=== PATIENT | male | born 1955 | race Caucasian/White ===

== ENCOUNTER → 2017-10-14 11:16 | Outpatient (CLI) | payer OTHER, SELFPAY ==
--- NOTE | 2017-10-14 11:18 | DI.RAD.S_ITS ---
PROCEDURE: XR SHOULDER RT MIN 2V INDICATIONS: shoulder pain TECHNIQUE: 3 views of the shoulder were acquired. COMPARISON: None. FINDINGS: Bones: No fractures or dislocations. No suspicious bony lesions. Visualized ribs appear intact. Soft tissues: No suspicious soft tissue calcifications. IMPRESSION: 1. No fracture or dislocation. 2. Mild degenerative a.c. joint disease. Dictated by: Chris London M.D. on 10/14/2017 at 12:24 Approved by: Chris London M.D. on 10/14/2017 at 12:25
== END ==
PROVIDERS: Family Provider Family Medicine; PCP Family Medicine; Visit Provider Family Medicine
DX: M19.011 Primary osteoarthritis, right shoulder (principal); M25.511 Pain in right shoulder
CPT/HCPCS: 73030

== ENCOUNTER → 2018-04-12 08:19 | Outpatient (CLI) | payer OTHER, SELFPAY ==
[2018-04-12 09:24] LABS: Alanine Aminotransferase 70 IU/L (21-72); Albumin 4.2 g/dL (3.5-5.0); Albumin Globulin Ratio 1.4 (1.0-2.8); Alkaline Phosphatase 76 U/L (38-126); Aspartate Aminotransferase 43 IU/L (17-59); BUN Creatinine Ratio 13.3 (6-22); Bilirubin Total 0.3 mg/dL (0.2-1.3); Blood Urea Nitrogen 12 mg/dL (9-20); Calcium 8.5 mg/dL (8.4-10.2); Carbon Dioxide 29 mmol/L (22-32); Chloride 105 mmol/L (98-107); Cholesterol 159 mg/dL (140-199); Estimated Glomerular Filt Rate > 60.0 mL/min (>60); Glucose 151 mg/dL (80-110); HDL Cholesterol 28 mg/dL (40-60); HEMOLYSIS < 15 (0-50); LDL Cholesterol Calculated 84 mg/dL (<100); Potassium 4.6 mmol/L (3.4-5.1); Sodium 144 mmol/L (137-145); Total Protein 7.2 g/dL (6.3-8.2); Triglycerides 233 mg/dL (35-150)
[2018-04-12 09:51] LABS: Thyroid Stimulating Hormone 2.28 uIU/mL (0.47-4.68)
[2018-04-12 11:26] LABS: Creatinine Urine Random 269.3 mg/dL
[2018-04-12 11:29] LABS: Microalbumi Creatinin Ratio Ur 23.3 ug/mg CR (<30); Microalbumin Urine Random 6.3 mg/dL (0-1.6)
== END ==
PROVIDERS: PCP Family Medicine; Visit Provider Nurse Practitioner
DX: E11.29 Type 2 diabetes mellitus with other diabetic kidney complication (principal); R80.9 Proteinuria, unspecified; E66.01 Morbid (severe) obesity due to excess calories; Z68.43 Body mass index [BMI] 50.0-59.9, adult
CPT/HCPCS: 80053; 80061; 82043; 82570; 84410; 84443

== ENCOUNTER → 2019-03-20 16:54 | Outpatient (CLI) | payer OTHER, SELFPAY | PROVIDERS: Family Provider Family Medicine; PCP Family Medicine; Visit Provider Nurse Practitioner | DX: J02.9 Acute pharyngitis, unspecified (principal) | CPT/HCPCS: 87070 ==

== ENCOUNTER → 2019-04-18 08:23 | Outpatient (CLI) | payer OTHER, SELFPAY ==
[2019-04-18 09:04] LABS: Add Manual Diff / Slide Review NO; Basophils Absolute Auto 0 /uL (0-100); Basophils Percent Auto 0.6 % (0-2); Eosinophils Absolute Auto 400 /uL (0-450); Eosinophils Percent Auto 5.5 % (2-4); Hematocrit 41.1 % (41-53); Hemoglobin 13.8 g/dL (13.5-17.5); Lymphocytes Absolute Auto 1700 /uL (1100-4500); Lymphocytes Percent Auto 22.5 % (25-40); Mean Corpuscular HGB Conc 33.7 % (30-36); Mean Corpuscular Hemoglobin 30.4 PG (26-34); Mean Corpuscular Volume 90.5 fL (80-100); Monocytes Absolute Auto 600 /uL (0-900); Monocytes Percent Auto 7.5 % (3-14); Neutrophils Absolute Auto 4700 /uL (1500-7000); Neutrophils Percent Auto 63.9 % (50-75); Platelet Count 217 X10^3/uL (150-400); Red Blood Cell Count 4.54 X10^6/uL (4.5-5.9); Red Cell Distribution Width 14.6 % (11.6-14.8); White Blood Cell Count 7.4 X10^3/uL (4.5-11.0)
[2019-04-18 09:16] LABS: Alanine Aminotransferase 34 IU/L (<50); Albumin 4.3 g/dL (3.5-5.0); Albumin Globulin Ratio 1.2 (1.0-2.8); Alkaline Phosphatase 98 U/L (38-126); Aspartate Aminotransferase 34 IU/L (17-59); Bilirubin Total 0.4 mg/dL (0.2-1.3); Blood Urea Nitrogen 12 mg/dL (9-20); Calcium 9.4 mg/dL (8.4-10.2); Carbon Dioxide 23 mmol/L (22-32); Chloride 105 mmol/L (98-107); Cholesterol 159 mg/dL (140-199); Estimated Glomerular Filt Rate > 60.0 mL/min (>60); Globulin 3.5 g/dL (1.7-4.1); Glucose 148 mg/dL (80-110); HDL Cholesterol 29 mg/dL (40-60); HEMOLYSIS < 15 (0-50); LDL Cholesterol Calculated 80 mg/dL (<100); Potassium 4.1 mmol/L (3.4-5.1); Sodium 140 mmol/L (137-145); Total Protein 7.8 g/dL (6.3-8.2); Triglycerides 248 mg/dL (35-150)
[2019-04-18 09:46] LABS: Prostate Specific Antigen 0.728 ng/mL (0.10-4.00)
[2019-04-18 11:09] LABS: Thyroid Stimulating Hormone 1.43 uIU/mL (0.47-4.68)
== END ==
PROVIDERS: Family Provider Family Medicine; PCP Family Medicine; Visit Provider Family Medicine
DX: Z12.5 Encounter for screening for malignant neoplasm of prostate (principal); Z13.29 Encounter for screening for other suspected endocrine disorder; E11.9 Type 2 diabetes mellitus without complications; E78.00 Pure hypercholesterolemia, unspecified; I10 Essential (primary) hypertension
CPT/HCPCS: 36415; 80053; 80061; 84153; 84443; 85025

== ENCOUNTER → 2019-12-15 13:17 | Outpatient (CLI) | payer OTHER, SELFPAY | PROVIDERS: Family Provider Family Medicine; PCP Family Medicine; Referring Provider Family Medicine; Visit Provider Family Medicine | DX: I87.2 Venous insufficiency (chronic) (peripheral) (principal); L97.821 Non-pressure chronic ulcer of other part of left lower leg limited to breakdown of skin; L03.116 Cellulitis of left lower limb | CPT/HCPCS: 11042; 87070; 87077; 87186; 87205; 99203; 99214 ==

== ENCOUNTER → 2019-12-22 14:44 | Outpatient (CLI) | payer OTHER, SELFPAY | PROVIDERS: Family Provider Family Medicine; PCP Family Medicine; Referring Provider Family Medicine; Visit Provider Family Medicine | DX: I87.2 Venous insufficiency (chronic) (peripheral) (principal); L97.811 Non-pressure chronic ulcer of other part of right lower leg limited to breakdown of skin | CPT/HCPCS: 11042; 93922 ==

== ENCOUNTER → 2019-12-24 14:31 | Outpatient (CLI) | payer OTHER, SELFPAY | PROVIDERS: Family Provider Family Medicine; PCP Family Medicine; Referring Provider Family Medicine; Visit Provider Family Medicine | DX: I87.2 Venous insufficiency (chronic) (peripheral) (principal); L97.811 Non-pressure chronic ulcer of other part of right lower leg limited to breakdown of skin | CPT/HCPCS: 29580 ==

== ENCOUNTER → 2019-12-28 14:49 | Outpatient (CLI) | payer OTHER, SELFPAY | PROVIDERS: Family Provider Family Medicine; PCP Family Medicine; Referring Provider Family Medicine; Visit Provider Family Medicine | DX: I87.2 Venous insufficiency (chronic) (peripheral) (principal); L97.821 Non-pressure chronic ulcer of other part of left lower leg limited to breakdown of skin | CPT/HCPCS: 11042 ==

== ENCOUNTER → 2020-01-02 08:49 | Outpatient (CLI) | payer OTHER, SELFPAY ==
[2020-01-02 10:29] LABS: Alanine Aminotransferase 43 IU/L (<50); Albumin 4.4 g/dL (3.5-5.0); Albumin Globulin Ratio 1.3 (1.0-2.8); Alkaline Phosphatase 95 U/L (38-126); Aspartate Aminotransferase 47 IU/L (17-59); BUN Creatinine Ratio 19.2 (6-22); Bilirubin Total 0.5 mg/dL (0.2-1.3); Blood Urea Nitrogen 20 mg/dL (9-20); Carbon Dioxide 25 mmol/L (22-32); Chloride 105 mmol/L (98-107); Estimated Glomerular Filt Rate > 60.0 mL/min (>60); Globulin 3.4 g/dL (1.7-4.1); Glucose 118 mg/dL (80-110); HEMOLYSIS 18 (0-50); Potassium 4.3 mmol/L (3.4-5.1); Sodium 139 mmol/L (137-145); Total Protein 7.8 g/dL (6.3-8.2)
== END ==
PROVIDERS: Family Provider Family Medicine; PCP Family Medicine; Referring Provider Internal Medicine; Visit Provider Internal Medicine
DX: E11.29 Type 2 diabetes mellitus with other diabetic kidney complication (principal); R80.9 Proteinuria, unspecified
CPT/HCPCS: 36415; 80053

== ENCOUNTER → 2020-01-04 14:43 | Outpatient (CLI) | payer OTHER, SELFPAY | PROVIDERS: Family Provider Family Medicine; PCP Family Medicine; Referring Provider Family Medicine; Visit Provider Family Medicine | DX: I87.2 Venous insufficiency (chronic) (peripheral) (principal); L97.821 Non-pressure chronic ulcer of other part of left lower leg limited to breakdown of skin; L08.9 Local infection of the skin and subcutaneous tissue, unspecified | CPT/HCPCS: 11042; 87070; 87075; 87077; 87147; 87186; 87205; 99214 ==

== ENCOUNTER → 2020-01-11 16:22 | Outpatient (CLI) | payer OTHER, SELFPAY | PROVIDERS: Family Provider Family Medicine; PCP Family Medicine; Referring Provider Family Medicine; Visit Provider Family Medicine | DX: I87.2 Venous insufficiency (chronic) (peripheral) (principal); L97.811 Non-pressure chronic ulcer of other part of right lower leg limited to breakdown of skin; L08.9 Local infection of the skin and subcutaneous tissue, unspecified | CPT/HCPCS: 29581; 99213 ==

== ENCOUNTER → 2020-01-18 15:48 | Outpatient (CLI) | payer OTHER, SELFPAY | PROVIDERS: Family Provider Family Medicine; PCP Family Medicine; Referring Provider Family Medicine; Visit Provider Family Medicine | DX: I87.2 Venous insufficiency (chronic) (peripheral) (principal); L97.811 Non-pressure chronic ulcer of other part of right lower leg limited to breakdown of skin | CPT/HCPCS: 15271; Q4137 ==

== ENCOUNTER → 2020-01-25 15:24 | Outpatient (CLI) | payer OTHER, SELFPAY | PROVIDERS: Family Provider Family Medicine; PCP Family Medicine; Referring Provider Family Medicine; Visit Provider Family Medicine | DX: I87.2 Venous insufficiency (chronic) (peripheral) (principal); L97.811 Non-pressure chronic ulcer of other part of right lower leg limited to breakdown of skin; R60.0 Localized edema | CPT/HCPCS: 15271; 99212; Q4137 ==

== ENCOUNTER → 2020-02-01 14:37 | Outpatient (CLI) | payer OTHER, SELFPAY | PROVIDERS: Family Provider Family Medicine; PCP Family Medicine; Referring Provider Family Medicine; Visit Provider Family Medicine | DX: I87.2 Venous insufficiency (chronic) (peripheral) (principal); L97.821 Non-pressure chronic ulcer of other part of left lower leg limited to breakdown of skin; R60.0 Localized edema | CPT/HCPCS: 15271; Q4137 ==

== ENCOUNTER → 2020-02-08 13:49 | Outpatient (CLI) | payer OTHER, SELFPAY | PROVIDERS: Family Provider Family Medicine; PCP Family Medicine; Referring Provider Family Medicine; Visit Provider Family Medicine | DX: I87.2 Venous insufficiency (chronic) (peripheral) (principal); L97.821 Non-pressure chronic ulcer of other part of left lower leg limited to breakdown of skin; R60.0 Localized edema | CPT/HCPCS: 15271; Q4137 ==

== ENCOUNTER → 2020-02-15 14:12 | Outpatient (CLI) | payer OTHER, SELFPAY | PROVIDERS: Family Provider Family Medicine; PCP Family Medicine; Referring Provider Family Medicine; Visit Provider Family Medicine | DX: I87.2 Venous insufficiency (chronic) (peripheral) (principal); L97.821 Non-pressure chronic ulcer of other part of left lower leg limited to breakdown of skin; R60.0 Localized edema | CPT/HCPCS: 15271; Q4137 ==

== ENCOUNTER → 2020-02-22 14:26 | Outpatient (CLI) | payer OTHER, SELFPAY | PROVIDERS: Family Provider Family Medicine; PCP Family Medicine; Referring Provider Family Medicine; Visit Provider Family Medicine | DX: I87.2 Venous insufficiency (chronic) (peripheral) (principal); L97.811 Non-pressure chronic ulcer of other part of right lower leg limited to breakdown of skin | CPT/HCPCS: 29581 ==

== ENCOUNTER → 2020-02-29 14:36 | Outpatient (CLI) | payer OTHER, SELFPAY | PROVIDERS: Family Provider Family Medicine; PCP Family Medicine; Referring Provider Family Medicine; Visit Provider Family Medicine | DX: I87.2 Venous insufficiency (chronic) (peripheral) (principal); L97.821 Non-pressure chronic ulcer of other part of left lower leg limited to breakdown of skin; R60.0 Localized edema | CPT/HCPCS: 15271; Q4137 ==

== ENCOUNTER → 2020-03-07 10:16 | Outpatient (CLI) | payer OTHER, SELFPAY ==
[2020-03-07 12:01] LABS: Alanine Aminotransferase 47 IU/L (<50); Albumin 3.9 g/dL (3.5-5.0); Albumin Globulin Ratio 1.3 (1.0-2.8); Alkaline Phosphatase 76 U/L (38-126); Aspartate Aminotransferase 40 IU/L (17-59); BUN Creatinine Ratio 16.3 (6-22); Bilirubin Total 0.4 mg/dL (0.2-1.3); Blood Urea Nitrogen 14 mg/dL (9-20); Carbon Dioxide 28 mmol/L (22-32); Chloride 106 mmol/L (98-107); Estimated Glomerular Filt Rate > 60.0 mL/min (>60); Globulin 3.1 g/dL (1.7-4.1); Glucose 76 mg/dL (80-110); HEMOLYSIS < 15 (0-50); Sodium 138 mmol/L (137-145)
== END ==
PROVIDERS: Family Provider Family Medicine; PCP Family Medicine; Referring Provider Internal Medicine; Visit Provider Internal Medicine
DX: E11.29 Type 2 diabetes mellitus with other diabetic kidney complication (principal); R80.9 Proteinuria, unspecified
CPT/HCPCS: 80053

== ENCOUNTER → 2020-03-07 16:19 | Outpatient (CLI) | payer OTHER, SELFPAY | PROVIDERS: Family Provider Family Medicine; PCP Family Medicine; Referring Provider Family Medicine; Visit Provider Family Medicine | DX: E11.622 Type 2 diabetes mellitus with other skin ulcer (principal); I87.2 Venous insufficiency (chronic) (peripheral); L97.811 Non-pressure chronic ulcer of other part of right lower leg limited to breakdown of skin; R60.0 Localized edema | CPT/HCPCS: 15271; Q4137 ==

== ENCOUNTER → 2020-03-14 15:07 | Outpatient (CLI) | payer OTHER, SELFPAY | PROVIDERS: Family Provider Family Medicine; PCP Family Medicine; Referring Provider Family Medicine; Visit Provider Family Medicine | DX: I87.2 Venous insufficiency (chronic) (peripheral) (principal); R60.0 Localized edema; E11.9 Type 2 diabetes mellitus without complications; L89.323 Pressure ulcer of left buttock, stage 3; L89.313 Pressure ulcer of right buttock, stage 3; R21 Rash and other nonspecific skin eruption; L08.9 Local infection of the skin and subcutaneous tissue, unspecified; G30.9 Alzheimer's disease, unspecified; F02.80 Dementia in other diseases classified elsewhere, unspecified severity, without behavioral disturbance, psychotic disturbance, mood disturbance, and anxiety | CPT/HCPCS: 99212; 99213 ==

== ENCOUNTER → 2020-03-22 11:54 | Outpatient (CLI) | payer OTHER, SELFPAY | PROVIDERS: Family Provider Family Medicine; PCP Family Medicine; Referring Provider Family Medicine; Visit Provider Family Medicine | DX: I87.2 Venous insufficiency (chronic) (peripheral) (principal); L97.811 Non-pressure chronic ulcer of other part of right lower leg limited to breakdown of skin; R60.0 Localized edema | CPT/HCPCS: 87070; 87075; 87077; 87147; 87205; 99214 ==

== ENCOUNTER → 2020-03-31 14:48 | Outpatient (CLI) | payer OTHER, SELFPAY | PROVIDERS: Family Provider Family Medicine; PCP Family Medicine; Referring Provider Family Medicine; Visit Provider Family Medicine | DX: E11.622 Type 2 diabetes mellitus with other skin ulcer (principal); R60.0 Localized edema; I87.2 Venous insufficiency (chronic) (peripheral); L97.821 Non-pressure chronic ulcer of other part of left lower leg limited to breakdown of skin | CPT/HCPCS: 99212; 99214 ==

== ENCOUNTER → 2020-04-23 10:34 | Outpatient (CLI) | payer OTHER, SELFPAY ==
[2020-04-23 12:44] LABS: Cholesterol 103 mg/dL (140-199); HDL Cholesterol 34 mg/dL (40-60); LDL Cholesterol Calculated 32 mg/dL (<100); Triglycerides 187 mg/dL (35-150)
== END ==
PROVIDERS: Family Provider Family Medicine; PCP Family Medicine; Referring Provider Internal Medicine Endocrinology, Diabetes & Metabolism; Visit Provider Internal Medicine Endocrinology, Diabetes & Metabolism
DX: E78.2 Mixed hyperlipidemia (principal)
CPT/HCPCS: 36415; 80061

== ENCOUNTER → 2020-09-02 12:28 | Outpatient (CLI) | payer OTHER, SELFPAY ==
[2020-09-02 13:38] LABS: Alanine Aminotransferase 61 IU/L (<50); Albumin 4.5 g/dL (3.5-5.0); Albumin Globulin Ratio 1.3 (1.0-2.8); Alkaline Phosphatase 84 U/L (38-126); Aspartate Aminotransferase 59 IU/L (17-59); Bilirubin Total 0.3 mg/dL (0.2-1.3); Blood Urea Nitrogen 12 mg/dL (9-20); Calcium 9.5 mg/dL (8.4-10.2); Carbon Dioxide 26 mmol/L (22-32); Chloride 104 mmol/L (98-107); Cholesterol 120 mg/dL (140-199); Estimated Glomerular Filt Rate > 60.0 mL/min (>60); Globulin 3.6 g/dL (1.7-4.1); Glucose 76 mg/dL (80-110); HDL Cholesterol 34 mg/dL (40-60); HEMOLYSIS < 15 (0-50); LDL Cholesterol Calculated 51 mg/dL (<100); Potassium 4.5 mmol/L (3.4-5.1); Sodium 140 mmol/L (137-145); Total Protein 8.1 g/dL (6.3-8.2); Triglycerides 177 mg/dL (35-150)
[2020-09-02 13:44] LABS: Hemoglobin A1C% w Est Avg Glu 6.7 % (4.0-6.0)
[2020-09-02 14:18] LABS: Creatinine Urine Random 67.3 mg/dL
[2020-09-02 14:22] LABS: Microalbumi Creatinin Ratio Ur 29.7 ug/mg CR (<30)
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
== END ==
PROVIDERS: Family Provider Family Medicine; PCP Family Medicine; Referring Provider Internal Medicine Endocrinology, Diabetes & Metabolism; Visit Provider Internal Medicine Endocrinology, Diabetes & Metabolism
DX: E11.29 Type 2 diabetes mellitus with other diabetic kidney complication (principal); R80.9 Proteinuria, unspecified
CPT/HCPCS: 36415; 80053; 80061; 82043; 82570; 83036

== ENCOUNTER → 2021-04-21 12:42 | Outpatient (CLI) | payer OTHER, SELFPAY ==
[2021-04-21 13:18] LABS: Hemoglobin A1C% w Est Avg Glu 6.7 % (4.0-6.0)
[2021-04-21 13:23] LABS: Alanine Aminotransferase 36 IU/L (<50); Albumin 4.5 g/dL (3.5-5.0); Albumin Globulin Ratio 1.5 (1.0-2.8); Alkaline Phosphatase 75 U/L (38-126); Aspartate Aminotransferase 33 IU/L (17-59); BUN Creatinine Ratio 18.4 (6-22); Bilirubin Total 0.4 mg/dL (0.2-1.3); Blood Urea Nitrogen 16 mg/dL (9-20); Calcium 9.1 mg/dL (8.4-10.2); Carbon Dioxide 29 mmol/L (22-32); Chloride 105 mmol/L (98-107); Cholesterol 109 mg/dL (140-199); Estimated Glomerular Filt Rate > 60.0 mL/min (>60); Globulin 3.1 g/dL (1.7-4.1); Glucose 104 mg/dL (80-110); HDL Cholesterol 35 mg/dL (40-60); HEMOLYSIS < 15 (0-50); LDL Cholesterol Calculated 43 mg/dL (<100); Sodium 143 mmol/L (137-145); Total Protein 7.6 g/dL (6.3-8.2); Triglycerides 155 mg/dL (35-150)
[2021-04-21 13:42] LABS: Creatinine Urine Random 106.9 mg/dL
[2021-04-21 13:45] LABS: Microalbumi Creatinin Ratio Ur 76.7 ug/mg CR (<30); Microalbumin Urine Random 8.2 mg/dL (0-1.6)
== END ==
PROVIDERS: Family Provider Family Medicine; PCP Family Medicine; Referring Provider Student in an Organized Health Care Education/Training Program; Visit Provider Student in an Organized Health Care Education/Training Program
DX: E11.69 Type 2 diabetes mellitus with other specified complication (principal)
CPT/HCPCS: 36415; 80053; 80061; 82043; 82570; 83036

== ENCOUNTER 2021-08-28 17:54 | Emergency (ER) | payer OTHER, SELFPAY ==
[2021-08-28 18:07] VITALS: BP 133/68; PULSE 84; RESP 18; TEMP 36.2; O2SAT 93; BMI 50.9
[2021-08-28 22:21] VITALS: BP 118/65; PULSE 81; O2SAT 95
--- NOTE | 2021-08-28 22:53 | ED_ITS ---
HPI - Nausea/Vomiting/Diarrhea General Chief complaint: Nausea/Vomiting/Diarrhea Stated complaint: N/V/D C-Diff Exposure Time Seen by Provider: 08/28/21 21:09 Source: patient Mode of arrival: Ambulatory History of Present Illness HPI Narrative: 65-year-old gentleman with a history of diabetes, asthma, hypertension, reflux, hyperlipidemia, anxiety and depression was recently exposed to a young family member who was later diagnosed with Clostridium difficile. The patient himself has noted intermittent nonpainful nonbloody diarrhea over the last 3 days. He has had a formed bowel movement today and is not feeling ill. No not a or vom iting. No cough, chills, palpitations, chest pain, headaches. Related Data Home Medications Medication Instructions Recorded Confirmed psyllium husk (aspartame) 3.4 gram 1 pkt PO QDAY #0 07/23/12 04/21/19 oral powder packet (Metamucil Fiber Singles) semaglutide 1 mg/dose (2 mg/1.5 1 mg SUBCUT QWEEK 04/21/19 04/21/19 mL) subcutaneous pen injector (Ozempic) antiarthritic combination no.2 900 mg PO 11/08/20 11/08/20 mg tablet (glucosamine-chondroitin) doxylamine succinate 25 mg tablet 25 mg PO BEDTIME PRN 11/08/20 11/08/20 empagliflozin 25 mg tablet 25 mg PO DAILY 11/08/20 11/08/20 (Jardiance) fexofenadine-pseudoephedrine ER 1 tab PO QAM 11/08/20 11/08/20 180 mg-240 mg tablet,ext.release 24 hr fluticasone propionate 50 1 spray INTRANASAL BID 11/08/20 11/08/20 mcg/actuation nasal spray,suspension (Flonase Allergy Relief) ibuprofen 800 mg tablet 800 mg PO .HS tab 11/08/20 11/08/20 rosuvastatin 5 mg tablet (Crestor) 5 mg PO DAILY 11/08/20 11/08/20 Previous Rx's Medication Instructions Recorded Glucose: Home Monitor units SEE INSTRUCTIONS #1 09/19/16 metformin 1,000 mg tablet 1,000 mg PO BIDCC #180 tab 12/10/19 (Glucophage) sertraline 50 mg tablet 50 mg PO QDAY #90 tab 10/25/20 blood sugar diagnostic (OneTouch See Rx Instructions .ROUTE 01/17/21 Ultra Test) .COMPLEX #700 ea lisinopril 40 mg tablet (Zestril) 40 mg PO QDAY #90 tab 05/18/21 omeprazole 20 mg capsule,delayed 20 mg PO BID #180 cap 05/18/21 release pramipexole 3.75 mg 3.75 mg PO DAILY #90 tab 05/18/21 tablet,extended release 24 hr tamsulosin 0.4 mg capsule See Rx Instructions .ROUTE 05/18/21 .COMPLEX #180 cap loratadine-pseudoephedrine ER 10 1 tab PO QDAY #90 tab 07/24/21 mg-240 mg tablet,extended [id number] (Claritin-D 24 Hour) Allergies Allergy/AdvReac Type Severity Reaction Status Date / Time No Known Drug Allergies Allergy Verified 11/08/20 10:43 Review of Systems Review of Systems Narrative: Remainder of complete review of systems is otherwise unremarkable except for that included in the HPI. Patient History Medical History Actinic keratosis due to exposure to sunlight (01/31/15) Diabetes mellitus Hyperlipidemia Hypertension Kidney stones Kidney stones Sleep apnea Surgical History History of sinus surgery Status post hemorrhoidectomy Family History Father Heart disease Hypertension Lumbar degenerative disc disease Social History marital status: Smoking Status: Never smoker alcohol intake: current (ON OCCASION ) substance use type: does not use Smoking Status: Never smoker alcohol intake frequency: holidays/special occasions only Substance Use Type: does not use Exam Initial Vital Signs Initial Vital Signs: Vital Signs Temperature 97.1 F L 08/28/21 18:07 Pulse Rate 84 08/28/21 18:07 Respiratory Rate 18 08/28/21 18:07 Blood Pressure 133/68 08/28/21 18:07 Pulse Oximetry 93 08/28/21 18:07 General: Healthy appearing, in no acute distress. Able to give a complete and coherent history. Well-nourished well-developed HEENT: Moist mucous membranes, normal sclera with reactive pupils, Neck: No JVD, supple Respiratory: Lungs are clear to auscultation, no wheezing no rales no rhonchi. Full and symmetrical air movement Cardiac: Regular rate and rhythm no murmurs no bruits Abdomen: Soft, nontender, good bowel tones, no flank pain Skin: Warm and dry, no rashes Neurologic: Grossly neurologically intact with no obvious asymmetries or abnormalities Extremities: No trauma, well perfused Psych: Cooperative, appropriate insight and affect Course Vital Signs Vital signs: Vital Signs - 8 hr 08/28/ 23:04 Pulse Rate 78 Blood Pressure 124/63 Pulse Oximetry 98 MDM - Nausea/Vomiting/Diarrhea MDM Narrative Medical decision making narrative: Patient presents concerned that he may have Clostridium difficile after moderate recent family exposure and intermittent diarrhea for the last 3 days. He produces a formed stool today which was sent to the lab but declined to be tested as it was fully formed. His granddaughter who was also the same event is also having diarrhea is seen simultaneously and her stool shows sapovirus. Suspect that is what also has rather than Clostridium difficile particularly given the fairly rapid resolution of symptoms. Discussed conservative management for his diarrhea. At this point he is clinically stable with no evidence of Clostridium difficile colitis or other acute abnormalities. Questions are answered he is safe for discharge Discharge Plan Departure Patient Disposition: Home Clinical Impression: Viral diarrhea Instructions: DI for Viral Gastroenteritis -- Adult Activity Restrictions/Additional Instructions: Thank you for coming in today Fortunately, you do not have C diff. with your granddaughter testing positive for sapovirus, I suspect this is also your diagnosis. This is a relatively benign viral infection that does cause diarrhea. There is nothing that we need to do specifically. You will get better by yourself. I would recommend that you drink plenty of fluids particularly things like Gatorade that have extra potassium in them. Eating simple foods such as bananas, rice, applesauce, toast for the next day or 2 certainly will help. I would also recommend avoiding dairy products for the next day or 2. Do keep track of your blood sugars and if you are noticing that your numbers are increasing please adjust your carbohydrate intake accordingly. If you find that you are getting worse or develop any new symptoms, please feel free to return to the emergency department for further evaluation. I hope you feel better Prescriptions: No Action Ozempic 1 mg/dose (2 mg/1.5 mL) pen injector 1 mg SUBCUT QWEEK 0RF fexofenadine-pseudoephedrine 180-240 mg tablet extended release 24 hr 1 tab PO QAM 0RF fluticasone propionate [Flonase Allergy Relief] 50 mcg/actuation spray,suspension 1 spray intranasal BID 0RF Rx Instructions: administer into each nostril glucosamine-chondroitin 900 mg tablet PO 0RF ibuprofen 800 mg tablet 800 mg PO .HS 0RF doxylamine succinate 25 mg tablet 25 mg PO BEDTIME PRN0RF Jardiance 25 mg tablet 25 mg PO DAILY 0RF rosuvastatin [Crestor] 5 mg tablet 5 mg PO DAILY 0RF psyllium husk (aspartame) [Metamucil Fiber Singles] 3.4 GM powder in packet 1 pkt PO QDAY Qty: 0 0RF Glucose: Home Monitor SEE INSTRUCTIONS Qty: 1 PRNRF metformin [Glucophage] 1,000 mg tablet 1,000 mg PO BIDCC Qty: 180 3RF sertraline 50 mg tablet 50 mg PO QDAY Qty: 90 3RF OneTouch Ultra Test Strip See Rx Instructions .ROUTE .COMPLEX Qty: 700 2RF Dose Instruction: Use to check blood sugar up to 8 time(s) daily before and after each meal and at bedtime Rx Instructions: Use to check blood sugar up to 8 time(s) daily before and after each meal and at bedtime tamsulosin 0.4 mg capsule See Rx Instructions .ROUTE .COMPLEX Qty: 180 3RF Dose Instruction: Take 2 capsules by mouth every day Rx Instructions: Take 2 capsules by mouth every day omeprazole 20 mg capsule,delayed release(DR/EC) 20 mg PO BID Qty: 180 3RF lisinopril [Zestril] 40 mg tablet 40 mg PO QDAY Qty: 90 3RF pramipexole 3.75 mg tablet extended release 24 hr 3.75 mg PO DAILY Qty: 90 3RF Hold Instructions: currently not available loratadine-pseudoephedrine [Claritin-D 24 Hour] 10-240 mg tablet extended release 24 hr 1 tab PO QDAY Qty: 90 4RF Referrals: Efrain Duggan MD [Primary Care Provider] -
[2021-08-28 23:04] VITALS: BP 124/63; PULSE 78; O2SAT 98
== END 2021-08-28 23:05 | disposition home or self-care (01) ==
PROVIDERS: Emergency Provider Emergency Medicine; Family Provider Family Medicine; PCP Family Medicine
DX: R19.7 Diarrhea, unspecified (principal)
CPT/HCPCS: 99281

== ENCOUNTER 2021-10-06 16:00 | Emergency (ER) | payer OTHER, SELFPAY ==
[2021-10-06] VITALS (16 sets, daily range): BP systolic 99–125; BP diastolic 53–60; PULSE 81–96; RESP 18–23; TEMP 36.2; O2SAT 92–95; BMI 51.6
--- NOTE | 2021-10-06 16:11 | DI.RAD.S_ITS ---
PROCEDURE: XR CHEST 1V INDICATIONS: shortness of breath-covid poss TECHNIQUE: One view of the chest was acquired. COMPARISON: [facility], , CHEST 1 VIEW, 12/04/2006, 20:47. FINDINGS: Surgical changes and devices: None. Lungs and pleura: Lungs are clear. No pleural effusions or pneumothorax. Mediastinum: Mediastinal contours appear normal. Heart size is normal. Bones and chest wall: No suspicious bony lesions. Overlying soft tissues appear unremarkable. IMPRESSION: No consolidations. Dictated by: Gail Herrera M.D. on 10/06/2021 at 17:01 Approved by: Gail Herrera M.D. on 10/06/2021 at 17:02
[2021-10-06 16:58] LABS: Add Manual Diff / Slide Review NO; Basophils Absolute Auto 100 /uL (0-100); Basophils Percent Auto 0.6 % (0-2); Eosinophils Absolute Auto 200 /uL (0-450); Eosinophils Percent Auto 2.4 % (2-4); Hematocrit 40.1 % (41-53); Hemoglobin 13.4 g/dL (13.5-17.5); Lymphocytes Absolute Auto 2000 /uL (1100-4500); Lymphocytes Percent Auto 20.6 % (25-40); Mean Corpuscular HGB Conc 33.5 % (30-36); Mean Corpuscular Hemoglobin 30.9 PG (26-34); Mean Corpuscular Volume 92.1 fL (80-100); Monocytes Absolute Auto 600 /uL (0-900); Monocytes Percent Auto 6.1 % (3-14); Neutrophils Absolute Auto 6700 /uL (1500-7000); Neutrophils Percent Auto 70.3 % (50-75); Platelet Count 223 X10^3/uL (150-400); Red Blood Cell Count 4.35 X10^6/uL (4.5-5.9); Red Cell Distribution Width 14.4 % (11.6-14.8); White Blood Cell Count 9.5 X10^3/uL (4.5-11.0)
[2021-10-06 17:10] LABS: Alanine Aminotransferase 54 IU/L (<50); Albumin 4.2 g/dL (3.5-5.0); Albumin Globulin Ratio 1.4 (1.0-2.8); Alkaline Phosphatase 90 U/L (38-126); Aspartate Aminotransferase 52 IU/L (17-59); BUN Creatinine Ratio 18.2 (6-22); Bilirubin Total 0.4 mg/dL (0.2-1.3); Blood Urea Nitrogen 16 mg/dL (9-20); Calcium 8.7 mg/dL (8.4-10.2); Carbon Dioxide 20 mmol/L (22-32); Chloride 105 mmol/L (98-107); Estimated Glomerular Filt Rate > 60 mL/min (>60); Globulin 3.1 g/dL (1.7-4.1); Glucose 208 mg/dL (80-110); HEMOLYSIS < 15 (0-50); Potassium 4.3 mmol/L (3.4-5.1); Sodium 138 mmol/L (137-145); Total Protein 7.3 g/dL (6.3-8.2)
[2021-10-06 17:11] LABS: Lactate (Lactic Acid) 2.1 mmol/L (0.7-2.1)
--- NOTE | 2021-10-06 18:32 | ED.GENADULT ---
HPI - General Adult General Chief complaint: Shortness of Breath/Dyspnea Stated complaint: COVID + SYMTOMS Time Seen by Provider: 10/06/21 18:25 Source: patient Mode of arrival: Wheelchair History of Present Illness HPI narrative: 66-year-old gentleman with history of diabetes, hypertension, depression, gastric reflux, BPH, sleep apnea with CPAP fully immunized against COVID with positive mild COVID symptoms 2 weeks ago with seeming improvement until 2-3 days ago when he noticed dramatically increasing fatigue, exertional dyspnea, orthopnea, global weakness dizziness and upper chest pressure. He has not had increased lower extremity edema. Cough is resolved he has had no fevers no headaches, no abdominal pain. He does note that he has been having at least daily diarrhea since his COVID diagnosis but it is mild. Related Data Home Medications Medication Instructions Recorded Confirmed psyllium husk (aspartame) 3.4 gram 1 pkt PO QDAY ##0 07/23/12 04/21/19 oral powder packet (Metamucil Fiber Singles) semaglutide 1 mg/dose (2 mg/1.5 1 mg SUBCUT QWEEK 04/21/19 04/21/19 mL) subcutaneous pen injector (Ozempic) antiarthritic combination no.2 900 mg PO 11/08/20 11/08/20 mg tablet (glucosamine-chondroitin) doxylamine succinate 25 mg tablet 25 mg PO BEDTIME PRN 11/08/20 11/08/20 empagliflozin 25 mg tablet 25 mg PO DAILY 11/08/20 11/08/20 (Jardiance) fexofenadine-pseudoephedrine ER 1 tab PO QAM 11/08/20 11/08/20 180 mg-240 mg tablet,ext.release 24 hr fluticasone propionate 50 1 spray intranasal BID 11/08/20 11/08/20 mcg/actuation nasal spray,suspension (Flonase Allergy Relief) ibuprofen 800 mg tablet 800 mg PO .HS 11/08/20 11/08/20 rosuvastatin 5 mg tablet (Crestor) 5 mg PO DAILY 11/08/20 11/08/20 Previous Rx's Medication Instructions Recorded Glucose: Home Monitor units SEE INSTRUCTIONS ##1 09/19/16 blood sugar diagnostic (OneTouch See Rx Instructions .Route 01/17/21 Ultra Test strips) .COMPLEX #700 ea lisinopril 40 mg tablet (Zestril) 40 mg PO QDAY #90 tabs 05/18/21 omeprazole 20 mg capsule,delayed 20 mg PO BID #180 caps 05/18/21 release pramipexole 3.75 mg 3.75 mg PO DAILY #90 tabs 05/18/21 tablet,extended release 24 hr tamsulosin 0.4 mg capsule See Rx Instructions .Route 05/18/21 .COMPLEX #180 caps loratadine-pseudoephedrine ER 10 1 tab PO QDAY #90 tabs 07/24/21 mg-240 mg tablet,extended [id number] (Claritin-D 24 Hour) sertraline 50 mg tablet See Rx Instructions .Route 09/28/21 .COMPLEX #90 tabs metformin 1,000 mg tablet 1,000 mg PO BIDCC #180 tabs 09/29/21 ropinirole 0.25 mg tablet 0.25 mg PO BID PRN restless legs 10/03/21 #60 tabs Allergies Allergy/AdvReac Type Severity Reaction Status Date / Time No Known Drug Allergies Allergy Verified 10/06/21 16:11 Review of Systems Review of Systems Narrative: Remainder of complete review of systems is otherwise unremarkable except for that included in the HPI. Patient History Medical History Actinic keratosis due to exposure to sunlight (01/31/15) Diabetes mellitus Hyperlipidemia Hypertension Kidney stones Kidney stones Sleep apnea Surgical History History of sinus surgery Status post hemorrhoidectomy Family History Father Heart disease Hypertension Lumbar degenerative disc disease Social History marital status: Smoking Status: Never smoker alcohol intake: current (ON OCCASION ) substance use type: does not use Smoking Status: Never smoker alcohol intake frequency: holidays/special occasions only Substance Use Type: does not use Exam Initial Vital Signs Initial Vital Signs: Vital Signs Temperature 97.2 F L 10/06/21 16:06 Pulse Rate 96 H 10/06/21 16:06 Respiratory Rate 10/06/21 16:06 Blood Pressure 118/56 L 10/06/21 16:06 Pulse Oximetry 93 10/06/21 16:06 Oxygen Delivery Method 10/06/21 16:06 General: Healthy appearing, in no acute distress. Able to give a complete and coherent history. Well-nourished well-developed HEENT: Moist mucous membranes, normal sclera with reactive pupils, Neck: No JVD, supple Respiratory: Lungs are clear to auscultation, no wheezing no rales no rhonchi. Full and symmetrical air movement Cardiac: Regular rate and rhythm no murmurs no bruits Abdomen: Soft, nontender, good bowel tones, no flank pain Skin: Warm and dry, no rashes Neurologic: Grossly neurologically intact with no obvious asymmetries or abnormalities Extremities: No trauma, well perfused Psych: Cooperative, appropriate insight and affect With ambulating at the bedside oxygen levels actually increased to 96% on room air but he does become increasingly more tachycardic with sinus rhythm into the 115 range Course Orders Ordered: ED Orders 10/06/21 16:11 XR chest 1V Stat EKG-12 Lead Stat Measure peak expiratory flow ONCE RT Consult Eval and Treat Now 10/06/21 16:45 Complete Blood Count AUTO DIFF Stat Comprehensive Metabolic Panel Stat Lactate (Lactic Acid) Stat 10/06/21 18:47 CT angio chest PE protocol Stat 10/06/21 20:30 BNP [NT-proBNP (BNP-Adult 18+)] Stat Troponin & CK Cardiac Panel Stat Vital Signs Vital signs: Vital Signs - 8 hr 10/06/21 16:06 10/06/21 18:00 10/06/21 17:30 Temperature 97.2 F L Pulse Rate 96 H 83 90 Respiratory Rate 22 19 20 Blood Pressure 118/56 L 108/55 L 99/55 L Pulse Oximetry 93 94 92 Oxygen Delivery Method Room Air Room Air Room Air 10/06/21 17:00 Temperature Pulse Rate 85 Respiratory Rate 20 Blood Pressure 114/56 L Pulse Oximetry 94 Oxygen Delivery Method Room Air Medical Decision Making Lab Data Result diagrams: 10/06/21 16:45 10/06/21 16:45 Labs: Lab Results 10/06/21 10/06/21 10/06/21 Range/Units 16:45 16:45 16:45 WBC 9.5 (4.5-11.0) X10^3/uL RBC 4.35 L (4.5-5.9) X10^6/uL Hgb 13.4 L (13.5-17.5) g/dL Hct 40.1 L (41-53) % MCV 92.1 (80-100) fL MCH 30.9 (26-34) PG MCHC 33.5 (30-36) % RDW 14.4 (11.6-14.8) % Plt Count 223 (150-400) X10^3/uL Neut % (Auto) 70.3 (50-75) % Lymph % (Auto) 20.6 L (25-40) % [place] % (Auto) 6.1 (3-14) % Eos % (Auto) 2.4 (2-4) % Baso % (Auto) 0.6 (0-2) % Neut # (Auto) 6700 (4462-7310) /uL Lymph # (Auto) 2000 (4840-7611) /uL [place] # (Auto) 600 (0-900) /uL Eos # (Auto) 200 (0-450) /uL Baso # (Auto) 100 (0-100) /uL Sodium 138 (137-145) mmol/L Potassium 4.3 (3.4-5.1) mmol/L Chloride 105 (98-107) mmol/L Carbon Dioxide 20 L (22-32) mmol/L BUN 16 (9-20) mg/dL Creatinine 0.88 (0.66-1.25) mg/dL Estimated GFR > 60 (>60) mL/min BUN/Creatinine Ratio 18.2 (6-22) Glucose 208 H (80-110) mg/dL Lactate 2.1 (0.7-2.1) mmol/L Calcium 8.7 (8.4-10.2) mg/dL Total Bilirubin 0.4 (0.2-1.3) mg/dL AST 52 (17-59) IU/L ALT 54 H (<50) IU/L Alkaline Phosphatase 90 (38-126) U/L Total Creatine Kinase (55-170) U/L CK-MB (CK-2) (<2.37) ng/mL CK-MB (CK-2) Rel Index (1.5-5.0) % Troponin I (0.01-0.034) ng/mL NT-Pro-B Natriuret Pep (<125) pg/mL Total Protein 7.3 (6.3-8.2) g/dL Albumin 4.2 (3.5-5.0) g/dL Globulin 3.1 (1.7-4.1) g/dL Albumin/Globulin Ratio 1.4 (1.0-2.8) 10/06/21 10/06/21 10/06/21 Range/Units 20:30 20:30 20:30 WBC (4.5-11.0) X10^3/uL RBC (4.5-5.9) X10^6/uL Hgb (13.5-17.5) g/dL Hct (41-53) % MCV (80-100) fL MCH (26-34) PG MCHC (30-36) % RDW (11.6-14.8) % Plt Count (150-400) X10^3/uL Neut % (Auto) (50-75) % Lymph % (Auto) (25-40) % [place] % (Auto) (3-14) % Eos % (Auto) (2-4) % Baso % (Auto) (0-2) % Neut # (Auto) (1829-4606) /uL Lymph # (Auto) (7592-5485) /uL [place] # (Auto) (0-900) /uL Eos # (Auto) (0-450) /uL Baso # (Auto) (0-100) /uL Sodium (137-145) mmol/L Potassium (3.4-5.1) mmol/L Chloride (98-107) mmol/L Carbon Dioxide (22-32) mmol/L BUN (9-20) mg/dL Creatinine (0.66-1.25) mg/dL Estimated GFR (>60) mL/min BUN/Creatinine Ratio (6-22) Glucose (80-110) mg/dL Lactate 1.6 (0.7-2.1) mmol/L Calcium (8.4-10.2) mg/dL Total Bilirubin (0.2-1.3) mg/dL AST (17-59) IU/L ALT (<50) IU/L Alkaline Phosphatase (38-126) U/L Total Creatine Kinase 122 (55-170) U/L CK-MB (CK-2) 2.25 (<2.37) ng/mL CK-MB (CK-2) Rel Index 1.8 (1.5-5.0) % Troponin I 0.020 (0.01-0.034) ng/mL NT-Pro-B Natriuret Pep 18 (<125) pg/mL Total Protein (6.3-8.2) g/dL Albumin (3.5-5.0) g/dL Globulin (1.7-4.1) g/dL Albumin/Globulin Ratio (1.0-2.8) Imaging Data CT scan - chest: Radiologist's Impression: FINDINGS:? Image quality:? Excellent.? ? Pulmonary arteries:? There is suboptimal contrast opacification of the pulmonary arteries limiting evaluation of segmental and subsegmental branches.? Pulmonary arteries are normal in size, and demonstrate no intraluminal filling defects to suggest central pulmonary embolism.? ? Lower Neck: No lymphadenopathy by size criteria. Thyroid:? Visualized thyroid demonstrates no discrete nodules. Axillae: No lymphadenopathy by size criteria. Chest Wall:? Unremarkable.? Bones: Visualized osseous structures demonstrate no suspicious lesions. ? Lungs and Airways:? No acute consolidation.? There is mild dependent atelectasis bilaterally.? Mild scarring and atelectasis are also present within the left lingula.? No suspicious pulmonary nodules. The trachea and central airways are patent. Pleura: No pneumothorax or pleural effusions.? ? Heart: Heart size is normal.? No pericardial effusion. Thoracic Vessels: The aorta appears normal in size.? Mediastinum and Ida: No lymphadenopathy by size criteria. Esophagus: No wall thickening. No hiatal hernia. Abdomen:? Visualized upper abdominal solid organs appear normal in the early arterial phase of enhancement.? ? IMPRESSION:? ? 1. No evidence of central pulmonary embolism.? Evaluation of segmental and subsegmental branches is limited by suboptimal contrast opacification. ? 2. No acute airspace consolidation in the lungs to suggest pneumonia. ? ? Dictated by: Everett Chang M.D. on 10/06/2021 at 20:05 ? ? Chest x-ray: Radiologist's Impression: FINDINGS:? ? Surgical changes and devices:? None.? ? Lungs and pleura:? Lungs are clear.? No pleural effusions or pneumothorax.? ? Mediastinum:? Mediastinal contours appear normal.? Heart size is normal.? ? Bones and chest wall:? No suspicious bony lesions.? Overlying soft tissues appear unremarkable.? ? IMPRESSION:? No consolidations. ? ? Dictated by: Gail Herrera M.D. on 10/06/2021 at 17:01 ? ? ECG Data Interpretation: Sinus rhythm at a rate of 92 Right bundle branch block No acute ischemic changes MDM Narrative Medical decision making narrative: 66-year-old gentleman with history of diabetes 2 weeks now past initial COVID symptoms with increasing fatigue, orthopnea dyspnea. There is no evidence of acute coronary syndrome myocarditis, pericarditis, pneumothorax, bacterial superinfection, pulmonary embolism, aortic aneurysm, acute renal failure acute liver failure or significant signs of heart failure or volume overload. He is not significantly anemic. At this time, he is not hypoxic and does not meet criteria for any additional treatment for his Covid19 infection now at least 2 weeks from initial symptoms. All life-threatening etiology has been fully evaluated and at this point I do not think he needs to be admitted to the hospital. We did talk about long COVID symptoms and will ask him to do a bit of his own research regarding this. Definitely will need follow-up with his primary care provider and may benefit from echocardiogram in the near future. Discharge Plan Departure Patient Disposition: Home Clinical Impression: COVID-19, Exertional dyspnea, Fatigue Instructions: DI for Shortness of Breath Activity Restrictions/Additional Instructions: Thank you for coming in today Your workup was very reassuring. There is no sign of continued lung injury or damage from your recent COVID-19 infection. There also does not appear to be any obvious complications from your COVID-19 infection. This includes no evidence of heart attack or heart attack like syndrome, congestive heart failure, collapsed lung, bacterial super infection, blood clots in your lungs, heart infection or fluid collecting render heart, acute anemia, liver failure or kidney failure. Please do look into ?long COVID? symptoms. There is simply is not enough evidence or research for me to make any recommendations regarding that at this time. I would recommend that you follow-up with your primary care doctor. You continue to have this shortness of breath then an echocardiogram, and ultrasound picture of your heart, may be indicated. Please note, when you are feeling short of breath your oxygen level is in the 96% range which is very normal. You do not need any supplementary oxygen at this time. I hope you feel better Prescriptions: No Action Ozempic 1 mg/dose (2 mg/1.5 mL) pen injector 1 mg SUBCUT QWEEK fexofenadine-pseudoephedrine 180-240 mg tablet extended release 24 hr 1 tab PO QAM fluticasone propionate [Flonase Allergy Relief] 50 mcg/actuation spray,suspension 1 spray intranasal BID Rx Instructions: administer into each nostril glucosamine-chondroitin 900 mg tablet PO ibuprofen 800 mg tablet 800 mg PO .HS doxylamine succinate 25 mg tablet 25 mg PO BEDTIME PRN Jardiance 25 mg tablet 25 mg PO DAILY rosuvastatin [Crestor] 5 mg tablet 5 mg PO DAILY psyllium husk (aspartame) [Metamucil Fiber Singles] 3.4 GM powder in packet 1 pkt PO QDAY Qty: 0 Glucose: Home Monitor SEE INSTRUCTIONS Qty: 1 PRNRF OneTouch Ultra Test Strip See Rx Instructions .ROUTE .COMPLEX Qty: 700 2RF Dose Instruction: Use to check blood sugar up to 8 time(s) daily before and after each meal and at bedtime Rx Instructions: Use to check blood sugar up to 8 time(s) daily before and after each meal and at bedtime tamsulosin 0.4 mg capsule See Rx Instructions .ROUTE .COMPLEX Qty: 180 3RF Dose Instruction: Take 2 capsules by mouth every day Rx Instructions: Take 2 capsules by mouth every day omeprazole 20 mg capsule,delayed release(DR/EC) 20 mg PO BID Qty: 180 3RF lisinopril [Zestril] 40 mg tablet 40 mg PO QDAY Qty: 90 3RF pramipexole 3.75 mg tablet extended release 24 hr 3.75 mg PO DAILY Qty: 90 3RF Hold Instructions: temporarily unavailable. requip substituted loratadine-pseudoephedrine [Claritin-D 24 Hour] 10-240 mg tablet extended release 24 hr 1 tab PO QDAY Qty: 90 4RF sertraline 50 mg tablet See Rx Instructions .ROUTE .COMPLEX Qty: 90 3RF Dose Instruction: Take 1 tablet by mouth every day Rx Instructions: Take 1 tablet by mouth every day metformin 1,000 mg tablet 1,000 mg PO BIDCC Qty: 180 0RF ropinirole 0.25 mg tablet 0.25 mg PO BID PRN (Reason: restless legs) Qty: 60 3RF Referrals: Efrain Duggan MD [Primary Care Provider] -
--- NOTE | 2021-10-06 18:47 | DI.CT.S_ITS ---
PROCEDURE: CT ANGIO CHEST PE PROTOCOL INDICATIONS: covid, worsening dyspnea, tachy TECHNIQUE: After the administration of intravenous contrast, 2 mm thick sections acquired from the pulmonary apices to the posterior costophrenic angles. 3-dimensional maximum intensity projection (MIP) coronal and sagittal reformats were then acquired through the thorax. For radiation dose reduction, the following was used: automated exposure control, adjustment of mA and/or kV according to patient size. COMPARISON: [facility], CR, XR CHEST 1V, 10/06/2021, 16:33. FINDINGS: Image quality: Excellent. Pulmonary arteries: There is suboptimal contrast opacification of the pulmonary arteries limiting evaluation of segmental and subsegmental branches. Pulmonary arteries are normal in size, and demonstrate no intraluminal filling defects to suggest central pulmonary embolism. Lower Neck: No lymphadenopathy by size criteria. Thyroid: Visualized thyroid demonstrates no discrete nodules. Axillae: No lymphadenopathy by size criteria. Chest Wall: Unremarkable. Bones: Visualized osseous structures demonstrate no suspicious lesions. Lungs and Airways: No acute consolidation. There is mild dependent atelectasis bilaterally. Mild scarring and atelectasis are also present within the left lingula. No suspicious pulmonary nodules. The trachea and central airways are patent. Pleura: No pneumothorax or pleural effusions. Heart: Heart size is normal. No pericardial effusion. Thoracic Vessels: The aorta appears normal in size. Mediastinum and Ida: No lymphadenopathy by size criteria. Esophagus: No wall thickening. No hiatal hernia. Abdomen: Visualized upper abdominal solid organs appear normal in the early arterial phase of enhancement. IMPRESSION: 1. No evidence of central pulmonary embolism. Evaluation of segmental and subsegmental branches is limited by suboptimal contrast opacification. 2. No acute airspace consolidation in the lungs to suggest pneumonia. Dictated by: Everett Chang M.D. on 10/06/2021 at 20:05 Approved by: Everett Chang M.D. on 10/06/2021 at 20:10
[2021-10-06 18:53] LABS: Reflexed Lactate in 2 Hours Y
[2021-10-06 20:54] LABS: Creatine Kinase 122 U/L (55-170)
[2021-10-06 20:56] LABS: Lactate 2HR (Lactic Acid Rflx) 1.6 mmol/L (0.7-2.1)
[2021-10-06 21:04] LABS: NT-proBNP (BNP-Adult 18+) 18 pg/mL (<125)
[2021-10-06 21:09] LABS: CKMB % Relative Index 1.8 % (1.5-5.0); Creatine Kinase MB 2.25 ng/mL (<2.37)
== END 2021-10-06 23:04 | disposition home or self-care (01) ==
PROVIDERS: Emergency Medicine; Emergency Provider Emergency Medicine; Family Provider Family Medicine; PCP Family Medicine
DX: U07.1 COVID-19 (principal); R06.00 Dyspnea, unspecified; R53.83 Other fatigue
CPT/HCPCS: 36415; 71045; 71275; 80053; 82550; 82553; 83605; 83880; 84484; 85025; 93005; 93010; 99284; Q9967

== ENCOUNTER → 2021-10-16 11:59 | Outpatient (CLI) | payer OTHER, SELFPAY ==
[2021-10-16 14:14] LABS: Hemoglobin A1C% w Est Avg Glu 7.4 % (4.0-6.0)
[2021-10-16 14:57] LABS: Creatinine Urine Random 120.6 mg/dL; Protein (Total) Urine Random 8 mg/dL (0-12); Protein Creatinine Ratio Urine 0.06 GRAM/24H
[2021-10-16 15:04] LABS: Alanine Aminotransferase 63 IU/L (<50); Albumin 4.3 g/dL (3.5-5.0); Albumin Globulin Ratio 1.4 (1.0-2.8); Alkaline Phosphatase 76 U/L (38-126); Aspartate Aminotransferase 55 IU/L (17-59); BUN Creatinine Ratio 16.1 (6-22); Bilirubin Total 0.4 mg/dL (0.2-1.3); Blood Urea Nitrogen 15 mg/dL (9-20); Carbon Dioxide 27 mmol/L (22-32); Chloride 102 mmol/L (98-107); Cholesterol 110 mg/dL (140-199); Estimated Glomerular Filt Rate > 60 mL/min (>60); Globulin 3.1 g/dL (1.7-4.1); Glucose 97 mg/dL (80-110); HDL Cholesterol 32 mg/dL (40-60); HEMOLYSIS < 15 (0-50); LDL Cholesterol Calculated 44 mg/dL (<100); Potassium 4.6 mmol/L (3.4-5.1); Sodium 137 mmol/L (137-145); Total Protein 7.4 g/dL (6.3-8.2); Triglycerides 169 mg/dL (35-150)
== END ==
PROVIDERS: Family Provider Family Medicine; PCP Family Medicine; Referring Provider Student in an Organized Health Care Education/Training Program; Visit Provider Student in an Organized Health Care Education/Training Program
DX: E11.69 Type 2 diabetes mellitus with other specified complication (principal)
CPT/HCPCS: 36415; 80053; 80061; 82570; 83036; 84156

== ENCOUNTER → 2021-11-09 17:01 | Outpatient (CLI) | payer OTHER, SELFPAY ==
[2021-11-09 18:03] LABS: Add Manual Diff / Slide Review NO; Basophils Absolute Auto 0 /uL (0-100); Basophils Percent Auto 0.6 % (0-2); Eosinophils Absolute Auto 200 /uL (0-450); Eosinophils Percent Auto 2.8 % (2-4); Hematocrit 40.3 % (41-53); Hemoglobin 13.6 g/dL (13.5-17.5); Lymphocytes Absolute Auto 2500 /uL (1100-4500); Lymphocytes Percent Auto 31.3 % (25-40); Mean Corpuscular HGB Conc 33.8 % (30-36); Mean Corpuscular Hemoglobin 31.2 PG (26-34); Mean Corpuscular Volume 92.3 fL (80-100); Monocytes Absolute Auto 600 /uL (0-900); Monocytes Percent Auto 6.9 % (3-14); Neutrophils Absolute Auto 4700 /uL (1500-7000); Neutrophils Percent Auto 58.4 % (50-75); Platelet Count 220 X10^3/uL (150-400); Red Blood Cell Count 4.37 X10^6/uL (4.5-5.9); Red Cell Distribution Width 14.4 % (11.6-14.8); White Blood Cell Count 8.1 X10^3/uL (4.5-11.0)
== END ==
PROVIDERS: Family Provider Family Medicine; PCP Family Medicine; Referring Provider Family Medicine; Visit Provider Family Medicine
DX: R58 Hemorrhage, not elsewhere classified (principal)
CPT/HCPCS: 36415; 85025

== ENCOUNTER → 2021-12-09 10:24 | Outpatient (CLI) | payer OTHER, SELFPAY ==
[2021-12-16 19:14] LABS: Cortisol, Saliva 1 sample 0.098 ug/dL (.)
== END ==
PROVIDERS: Family Provider Family Medicine; PCP Family Medicine; Referring Provider Student in an Organized Health Care Education/Training Program; Visit Provider Student in an Organized Health Care Education/Training Program
DX: E11.65 Type 2 diabetes mellitus with hyperglycemia (principal)
CPT/HCPCS: 82533

== ENCOUNTER → 2022-01-30 12:24 | Outpatient (CLI) | payer OTHER, SELFPAY ==
[2022-01-30 13:02] LABS: Hemoglobin A1C% w Est Avg Glu 6.7 % (4.0-6.0)
[2022-01-30 13:18] LABS: Alanine Aminotransferase 46 IU/L (<50); Albumin 4.1 g/dL (3.5-5.0); Albumin Globulin Ratio 1.3 (1.0-2.8); Alkaline Phosphatase 81 U/L (38-126); Aspartate Aminotransferase 41 IU/L (17-59); BUN Creatinine Ratio 18.7 (6-22); Bilirubin Total 0.3 mg/dL (0.2-1.3); Blood Urea Nitrogen 17 mg/dL (9-20); Carbon Dioxide 21 mmol/L (22-32); Chloride 106 mmol/L (98-107); Cholesterol 101 mg/dL (140-199); Estimated Glomerular Filt Rate > 60 mL/min (>60); Globulin 3.2 g/dL (1.7-4.1); Glucose 89 mg/dL (80-110); HDL Cholesterol 31 mg/dL (40-60); HEMOLYSIS < 15 (0-50); LDL Cholesterol Calculated 39 mg/dL (<100); Potassium 4.3 mmol/L (3.4-5.1); Sodium 139 mmol/L (137-145); Total Protein 7.3 g/dL (6.3-8.2); Triglycerides 156 mg/dL (35-150)
[2022-01-30 15:33] LABS: Microalbumi Creatinin Ratio Ur 29.7 ug/mg CR (<30); Microalbumin Urine Random 4.2 mg/dL (0-1.6)
== END ==
PROVIDERS: Family Provider Family Medicine; PCP Family Medicine; Referring Provider Student in an Organized Health Care Education/Training Program; Visit Provider Student in an Organized Health Care Education/Training Program
DX: E11.69 Type 2 diabetes mellitus with other specified complication (principal)
CPT/HCPCS: 36415; 80053; 80061; 82043; 82570; 83036

== ENCOUNTER → 2022-05-28 12:41 | Outpatient (CLI) | payer OTHER, SELFPAY ==
[2022-05-28 14:38] LABS: Hemoglobin A1C% w Est Avg Glu 6.2 % (4.0-6.0)
[2022-05-28 14:43] LABS: Albumin 4.1 g/dL (3.5-5.0); BUN Creatinine Ratio 19.2 (6-22); Blood Urea Nitrogen 20 mg/dL (9-20); Calcium 8.9 mg/dL (8.4-10.2); Carbon Dioxide 24 mmol/L (22-32); Chloride 104 mmol/L (98-107); Cholesterol 112 mg/dL (140-199); Estimated Glomerular Filt Rate > 60 mL/min (>60); Glucose 72 mg/dL (80-110); HDL Cholesterol 31 mg/dL (40-60); HEMOLYSIS < 15 (0-50); LDL Cholesterol Calculated 34 mg/dL (<100); Phosphorous 4.6 mg/dL (2.3-3.7); Potassium 4.1 mmol/L (3.4-5.1); Sodium 142 mmol/L (137-145); Triglycerides 237 mg/dL (35-150)
[2022-05-28 16:44] LABS: Creatinine Urine Random 116.6 mg/dL
[2022-05-28 16:50] LABS: Microalbumi Creatinin Ratio Ur 39.4 ug/mg CR (<30); Microalbumin Urine Random 4.6 mg/dL (0-1.6)
== END ==
PROVIDERS: Family Provider Family Medicine; PCP Family Medicine; Referring Provider Student in an Organized Health Care Education/Training Program; Visit Provider Student in an Organized Health Care Education/Training Program
DX: E11.69 Type 2 diabetes mellitus with other specified complication (principal)
CPT/HCPCS: 36415; 80061; 80069; 82043; 82570; 83036

== ENCOUNTER → 2022-06-14 12:06 | Outpatient (CLI) | payer OTHER, SELFPAY ==
--- NOTE | 2022-06-14 12:07 | DI.RAD.S_ITS ---
PROCEDURE: XR LUMBAR SPINE 2-3V INDICATIONS: lbp pain TECHNIQUE: 3 views of the lumbar spine were acquired. COMPARISON: [facility], , L-SPINE 2-3 VIEWS, 04/29/2013, 16:15. FINDINGS: Bones: 5 [id number] vertebrae are present. Mild dextrocurvature centered at the L3-L4 level. 2 mm retrolisthesis T12-L1 and L1-L2. Multilevel disc height loss with endplate sclerosis and spurring, most notably and moderate at the L4-L5 and L5-S1 levels where there is mild facet joint arthropathy. No vertebral body compression fractures. No suspicious bony lesions. Soft tissues: Overlying bowel gas pattern is normal. No suspicious soft tissue calcifications. IMPRESSION: Multilevel lumbar spine spondylosis, most notably at the L4-L5 and L5-S1 levels. Dictated by: Luciano UNDERWOOD Interpreted: Gail Herrera MD on 06/14/2022 at 13:17 Transcribed by: RICARDA on 06/14/2022 at 13:18 Approved by: Gail Herrera M.D. on 06/14/2022 at 20:23
[2022-06-14 12:50] LABS: Lactate Dehydrogenase 195 U/L (120-246)
[2022-06-14 13:26] LABS: Ferritin 36 ng/mL (18-464)
[2022-06-15 10:10] LABS: Prostate Specific Antigen 1.11 ng/mL (0.10-4.00)
== END ==
PROVIDERS: Family Provider Family Medicine; PCP Family Medicine; Referring Provider Family Medicine; Visit Provider Family Medicine
DX: N40.0 Benign prostatic hyperplasia without lower urinary tract symptoms (principal); U07.1 COVID-19; M47.816 Spondylosis without myelopathy or radiculopathy, lumbar region; M47.817 Spondylosis without myelopathy or radiculopathy, lumbosacral region
CPT/HCPCS: 36415; 72100; 82728; 83615; 84153

== ENCOUNTER → 2022-06-22 11:22 | Outpatient (CLI) | payer OTHER, SELFPAY ==
--- NOTE | 2022-06-22 11:23 | DI.CT.S_ITS ---
PROCEDURE: CT ABDOMEN PELVIS W CON INDICATIONS: IRRITATED SEBORRHEIC KERATOSIS, R/O MALIGNANCY TECHNIQUE: After the administration of oral and intravenous contrast, axial sections were acquired from the lung bases to the pubic symphysis. Coronal and sagittal reformats were performed. For radiation dose reduction, the following was used: automated exposure control, adjustment of mA and/or kV according to patient size. COMPARISON:[facility], CT, ABDOMEN/PELVIS WITH CONTRAST, 12/04/2006, 22:27. FINDINGS: Image quality: Excellent. Lung bases: Unremarkable. Heart: No significant findings. ABDOMEN: Liver: Hepatic steatosis.. Gallbladder: Gallstones. No wall thickening. Biliary ducts: Unremarkable. Pancreas: Unremarkable. Spleen: Unremarkable. Adrenal Glands: Unremarkable. Kidneys and Ureters: Unremarkable. Stomach and Bowel: Colonic diverticulosis without evidence of diverticulitis. Peritoneum: No abnormal intraperitoneal fluid. No free air. Ventral Wall: No hernia. Abdominal Nodes: No retroperitoneal or mesenteric adenopathy by size criteria. Vessels: Aorta and inferior vena cava are normal in size. PELVIS: Pelvic Organs: Unremarkable. Bladder: Unremarkable. Pelvic Nodes: No enlarged lymph nodes. Miscellaneous: Left inguinal hernia containing fat. Bones: Unremarkable. IMPRESSION: No evidence of metastatic disease. Hepatic steatosis. Dictated by: Regis Napoles M.D. on 06/22/2022 at 17:12 Approved by: Regis Napoles M.D. on 06/22/2022 at 17:14
== END ==
PROVIDERS: Family Provider Family Medicine; PCP Family Medicine; Referring Provider Family Medicine; Visit Provider Family Medicine
DX: L82.1 Other seborrheic keratosis (principal); D22.5 Melanocytic nevi of trunk; K76.0 Fatty (change of) liver, not elsewhere classified
CPT/HCPCS: 74177

== ENCOUNTER 2022-07-17 07:11 | Day surgery (SDC) | payer OTHER, SELFPAY ==
--- NOTE | 2022-07-17 | PATH_ITS ---
[facility] Accession Number: [id number] No. of containers..01 Tissue . 01 Material submitted: . rectum - RECTUM POLYP . 01 Diagnosis: Rectum, Polyp, Biopsy: Benign lymphoid aggregate. MRV 07/20/2022 1508 Local . 01 Electronically signed: . Hope Mccormick MD, Pathologist NPI- [id number] . 01 Gross description: . RECTUM POLYP: Received in formalin is 1 fragment(s) of lee, soft tissue measuring 0.2 x 0.2 x 0.2 cm submitted entirely in 1 cassette(s) /JESSIE 07/18/2022 1929 Local . 01 Pathologist provided ICD-10: K62.1 . 01 CPT . 321337 Specimen Comment: A courtesy copy of this report has been sent to [phone] Performed at: 01 [facility] [address] [place] [address], [place], [place] [id number] MD Everett Dubose MD Phone: [phone]
[2022-07-17 07:46] VITALS: BP 159/79; PULSE 98; RESP 24; TEMP 35.7; O2SAT 100; BMI 51.6
--- NOTE | 2022-07-17 08:28 | PM.PREOP ---
Pre-operative Note Interval Note History & Physical reviewed/Exam performed by Physician: Yes Changes to H&P: No
[2022-07-17 09:18] VITALS: BP 95/73; PULSE 87; RESP 24; O2SAT 94
--- NOTE | 2022-07-17 09:18 | PM.OP.EC ---
Operative Date/Time/Diagnoses Date of procedure: 07/17/22 Time of procedure: 09:19 Pre-op diagnosis: Colorectal screening Post-op diagnosis: other (Rectal polyp x1) Procedure & Clinicians Study performed: Esophagoduodenoscopy and colonoscopy Same procedure as scheduled: Yes Indications: 66-year-old male with a diagnosis eruptive seborrheic keratosis which has a significant association with adenocarcinoma of the bowel who is here for a screening esophagoduodenoscopy and colonoscopy Procedure Notes Procedure in detail: The history and physical was performed/updated and the patient is ASA class is 3. The procedure was discussed in detail with the patient. Potential risks complications including infection, bleeding, missed diagnosis, perforation, need for surgery, and were explained. Their questions were answered and informed consent was obtained. Patient placed in left lateral decubitus position. Time out was performed. Procedural sedation was administered by Anesthesia. A bite block was placed. the scope was inserted into the mouth and advanced through the esophagus and into the stomach. The stomach was without masses, ulcers or gastritis. The pylorus was intubated and the duodenum was normal to the 2nd portion. The scope was retroflexed within the stomach and there was a small hiatal hernia. The scope was withdrawn into the esophagus the Z line was seen at 40 cm from the incisions. There was no Mcnally's esophagitis, esophageal masses or strictures. Stomach was desufflated and scope removed. Examination began with a thorough inspection of the perianal area there was no evidence of fissures, fistulae, external hemorrhoids or cutaneous malignancy. The colonoscopy scope was then placed into the anal canal and was advanced to the cecum, which was identified by the ileocecal valve, the appendiceal orifice and the confluence of the taenia. The scope was then slowly withdrawn examining colon thoroughly in all directions, irrigating it of any residual stool. The preparation of the colon was poor by BPPS classification. The colon was free from masses or inflammation. A 5 mm rectal polyp at 15 cm from the anal verge was biopsied with forceps. The remainder of the colon was unremarkable. The patient tolerated the procedure well. They will be discharged once criteria are met. The withdrawl time was 6minutes. Specimen(s): other (Rectal polyp) Impression: Rectal polyp Post-procedure Plan for aftercare: Follow-up is dependent on pathology findings Disposition: same day surgery
[2022-07-17 09:23] VITALS: BP 87/52; PULSE 85; RESP 25; TEMP 36.6; O2SAT 92
--- NOTE | 2022-07-17 09:28 | SUR.PHASEI ---
Report given to
[2022-07-17 09:30] VITALS: BP 98/48; PULSE 83; RESP 20; O2SAT 94
[2022-07-17 09:33] VITALS: BP 103/44; PULSE 83; RESP 20; O2SAT 94
[2022-07-17 09:41] VITALS: BP 110/63; PULSE 82; RESP 12; TEMP 36.6; O2SAT 95
--- NOTE | 2022-07-17 09:57 | SUR.PHASEII ---
Blood sugar 89. Patient denies dizziness or nausea. Instructed patient to eat when he arrives home and re-check his blood sugar prior to administering any insulin. Verbalizes information.
== END 2022-07-17 09:59 | disposition home or self-care (01) ==
PROVIDERS: Family Provider Family Medicine; PCP Family Medicine; Referring Provider Surgery; Visit Provider Surgery
PROC: 0DJ08ZZ Inspection of Upper Intestinal Tract, Via Natural or Artificial Opening Endoscopic (ICD-10-PCS; CPT 43235; principal; 2022-07-17 08:30)
PROC: 0DJD8ZZ Inspection of Lower Intestinal Tract, Via Natural or Artificial Opening Endoscopic (ICD-10-PCS; CPT 45378; 2022-07-17 08:30)
DX: Z12.11 Encounter for screening for malignant neoplasm of colon (principal); Z12.0 Encounter for screening for malignant neoplasm of stomach; L82.1 Other seborrheic keratosis; K62.1 Rectal polyp
CPT/HCPCS: 45380; 43235; 82962; J2704

== ENCOUNTER → 2022-10-04 14:07 | Outpatient (CLI) | payer OTHER, SELFPAY ==
[2022-10-04 16:21] LABS: Alanine Aminotransferase 42 IU/L (<50); Albumin Globulin Ratio 1.3 (1.0-2.8); Alkaline Phosphatase 91 U/L (38-126); Aspartate Aminotransferase 34 IU/L (17-59); BUN Creatinine Ratio 19.4 (6-22); Bilirubin Total 0.3 mg/dL (0.2-1.3); Blood Urea Nitrogen 18 mg/dL (9-20); Calcium 8.9 mg/dL (8.4-10.2); Carbon Dioxide 23 mmol/L (22-32); Chloride 104 mmol/L (98-107); Cholesterol 103 mg/dL (140-199); Estimated Glomerular Filt Rate > 60 mL/min (>60); Glucose 110 mg/dL (80-110); HDL Cholesterol 31 mg/dL (40-60); HEMOLYSIS < 15 (0-50); LDL Cholesterol Calculated 28 mg/dL (<100); Potassium 4.7 mmol/L (3.4-5.1); Sodium 138 mmol/L (137-145); Triglycerides 221 mg/dL (35-150)
[2022-10-04 17:50] LABS: Creatinine Urine Random 133.2 mg/dL
[2022-10-04 17:54] LABS: Microalbumin Urine Random 2.8 mg/dL (0-1.6)
[2022-10-06 08:39] LABS: Labcorp Hemoglobin (Hb) A1c 5.9 % (4.8-5.6)
== END ==
PROVIDERS: Family Provider Family Medicine; PCP Family Medicine; Referring Provider Student in an Organized Health Care Education/Training Program; Visit Provider Student in an Organized Health Care Education/Training Program
DX: E11.69 Type 2 diabetes mellitus with other specified complication (principal)
CPT/HCPCS: 36415; 80053; 80061; 82043; 82570; 83036

== ENCOUNTER → 2022-12-17 12:07 | Outpatient (CLI) | payer OTHER, SELFPAY ==
[2022-12-17 13:13] LABS: Hemoglobin A1C% w Est Avg Glu 5.5 % (4.0-6.0)
[2022-12-17 13:19] LABS: Albumin 4.3 g/dL (3.5-5.0); BUN Creatinine Ratio 15.7 (6-22); Blood Urea Nitrogen 16 mg/dL (9-20); Calcium 9.2 mg/dL (8.4-10.2); Carbon Dioxide 27 mmol/L (22-32); Chloride 105 mmol/L (98-107); Cholesterol 107 mg/dL (140-199); Estimated Glomerular Filt Rate > 60 mL/min (>60); Glucose 67 mg/dL (80-110); HDL Cholesterol 31 mg/dL (40-60); HEMOLYSIS < 15 (0-50); LDL Cholesterol Calculated 44 mg/dL (<100); Phosphorous 3.9 mg/dL (2.3-3.7); Sodium 141 mmol/L (137-145); Triglycerides 162 mg/dL (35-150)
[2022-12-17 13:33] LABS: Vitamin D 25 Hydroxy (D3) 21.1 ng/mL (30.0-100.0)
[2022-12-17 14:08] LABS: Vitamin B12 268 pg/mL (239-931)
[2022-12-17 15:50] LABS: Creatinine Urine Random 209.3 mg/dL
[2022-12-17 15:54] LABS: Microalbumi Creatinin Ratio Ur 24.3 ug/mg CR (<30); Microalbumin Urine Random 5.1 mg/dL (0-1.6)
== END ==
PROVIDERS: Family Provider Family Medicine; PCP Family Medicine; Referring Provider Student in an Organized Health Care Education/Training Program; Visit Provider Student in an Organized Health Care Education/Training Program
DX: E11.69 Type 2 diabetes mellitus with other specified complication (principal)
CPT/HCPCS: 36415; 80061; 80069; 82043; 82306; 82570; 82607; 83036

== ENCOUNTER → 2022-12-28 13:23 | Outpatient (CLI) | payer OTHER, SELFPAY ==
[2022-12-28 18:19] LABS: Uric Acid 5.7 mg/dL (3.5-8.5)
== END ==
PROVIDERS: Family Provider Family Medicine; PCP Family Medicine; Referring Provider Internal Medicine Rheumatology; Visit Provider Internal Medicine Rheumatology
DX: R21 Rash and other nonspecific skin eruption (principal); M54.50 Low back pain, unspecified; G89.29 Other chronic pain; M17.0 Bilateral primary osteoarthritis of knee
CPT/HCPCS: 36415; 84550

== ENCOUNTER → 2023-01-11 14:06 | Outpatient (CLI) | payer OTHER, SELFPAY | PROVIDERS: Family Provider Family Medicine; PCP Family Medicine; Referring Provider Specialist; Visit Provider Specialist | DX: N40.1 Benign prostatic hyperplasia with lower urinary tract symptoms (principal); N13.8 Other obstructive and reflux uropathy | CPT/HCPCS: 84153 ==

== ENCOUNTER → 2023-01-22 16:23 | Outpatient (CLI) | payer OTHER, SELFPAY ==
[2023-01-22 17:58] LABS: Prostate Specific Antigen 0.934 ng/mL (0.10-4.00)
== END ==
PROVIDERS: Family Provider Family Medicine; PCP Family Medicine; Referring Provider Specialist; Visit Provider Specialist
DX: N40.1 Benign prostatic hyperplasia with lower urinary tract symptoms (principal); N13.8 Other obstructive and reflux uropathy
CPT/HCPCS: 84153

== ENCOUNTER → 2023-02-25 09:38 | Outpatient (CLI) | payer OTHER, SELFPAY ==
[2023-02-25 10:59] LABS: Erythrocyte Sedimentation Rate 19 MM/HR (0-15)
[2023-02-25 11:30] LABS: Hepatitis B Surface Antigen NEGATIVE s/c (NEGATIVE)
[2023-02-25 11:47] LABS: Hep C Virus Ab w/Reflex Quant NEGATIVE s/c (NEGATIVE)
[2023-02-26 03:38] LABS: Hepatitis B Core Antibody Negative (Negative); Hepatitis B Surf AB Quant <3.1 mIU/mL (Immunity>9.9)
[2023-02-26 23:23] LABS: QuantiFERON Mitogen Value >10.00 IU/mL (.); QuantiFERON TB Gold Plus Negative (Negative); QuantiFERON TB1 Ag Value 0.01 IU/mL (.)
== END ==
PROVIDERS: Family Provider Family Medicine; PCP Family Medicine; Referring Provider Internal Medicine Rheumatology; Visit Provider Internal Medicine Rheumatology
DX: M45.9 Ankylosing spondylitis of unspecified sites in spine (principal)
CPT/HCPCS: 36415; 85651; 86140; 86480; 86704; 86706; 86803; 87340

== ENCOUNTER → 2023-04-16 12:10 | Outpatient (CLI) | payer OTHER, SELFPAY ==
[2023-04-16 13:36] LABS: Albumin 4.2 g/dL (3.5-5.0); BUN Creatinine Ratio 19.6 (6-22); Blood Urea Nitrogen 19 mg/dL (9-20); Calcium 10.2 mg/dL (8.4-10.2); Carbon Dioxide 24 mmol/L (22-32); Chloride 103 mmol/L (98-107); Cholesterol 119 mg/dL (140-199); Estimated Glomerular Filt Rate > 60 mL/min (>60); Glucose 101 mg/dL (80-110); HDL Cholesterol 31 mg/dL (40-60); HEMOLYSIS < 15 (0-50); LDL Cholesterol Calculated 44 mg/dL (<100); Potassium 4.6 mmol/L (3.4-5.1); Sodium 138 mmol/L (137-145); Triglycerides 222 mg/dL (35-150)
[2023-04-16 14:20] LABS: Vitamin B12 328 pg/mL (239-931)
[2023-04-16 16:37] LABS: Microalbumin Urine Random 5.7 mg/dL (0-1.6)
[2023-04-16 16:38] LABS: Creatinine Urine Random 165.5 mg/dL; Microalbumi Creatinin Ratio Ur 34.4 ug/mg CR (<30)
[2023-04-16 16:46] LABS: Vitamin D 25 Hydroxy (D3) 15.9 ng/mL (30.0-100.0)
== END ==
PROVIDERS: Family Provider Family Medicine; PCP Family Medicine; Referring Provider Student in an Organized Health Care Education/Training Program; Visit Provider Student in an Organized Health Care Education/Training Program
DX: E11.69 Type 2 diabetes mellitus with other specified complication (principal)
CPT/HCPCS: 36415; 80061; 80069; 82043; 82306; 82570; 82607; 83036

== ENCOUNTER 2023-06-06 10:30 | Outpatient (RCR) | payer OTHER, SELFPAY ==
--- NOTE | 2023-03-14 18:39 | PT.OIE ---
Current Diagnoses Urge incontinence (03/14/23) Past Medical History (Last Updated 01/23/23 @ 15:15 by Amarilis Chase MD) Actinic keratosis due to exposure to sunlight (01/31/15) BPH w urinary obs/LUTS Diabetes mellitus History of nephrolithiasis Hyperlipidemia Hypertension Kidney stones Kidney stones Lower urinary tract symptoms (LUTS) Sleep apnea Urge incontinence Past Surgical History (Last Reviewed 01/23/23 @ 15:13 by Amarilis Chase MD) History of sinus surgery Status post hemorrhoidectomy Visit Care Team Role Provider Type Efrain Duggan MD Family Provider Physician Primary Care Provider Specialty: Family Practice Address: [address] [place] [address], [address], [address] Email: [email or web address] Amarilis Chase MD Attending Provider Physician Referring Provider Specialty: Urology Address: [address] [place] [address], [id number] Email: Physical Therapy Initial Evaluation PT-OP-A Visit Information Start: 03/14/23 08:14 Freq: Status: Active Protocol: Document 03/14/23 11:22 [facility] (Rec: 03/14/23 12:15 [facility] [id number]) Out-Patient Physical Therapy Visit Information Visit Information Visit Type Initial Evaluation Visit Start Time 11:15 Visit Stop Time 12:00 Total Visit Minutes 45 Visit Number 1 Evaluation Information Evaluation Date 03/14/23 PT-OP-B Current Condition Start: 03/14/23 08:14 Freq: Status: Active Protocol: Document 03/14/23 11:22 [facility] (Rec: 03/14/23 12:15 [facility] [id number]) Current Condition History of Current Condition Onset Date chronic but worsening Current Complaints frequent urinary urgency and urge incontinence History of Current Condition several years of frequent urgency, sometimes he cant make it through a hour TV show without having to go to the bathroom. When he stands he will leak getting to the toilet. Pt notes its not uncommon that he doesn't fully empty his bladder. Pt notes he goes back and forth between constipated and then loose. Hx of Hemrhoid surgery over 10 years ago. He was recently diagnosed with . Hx of a fall 20 years ago onto his tailbone. He denies symptoms of stress incontinence. The urge wakes him at night to void. Treatment Goals Patient/Caregiver Goals pts goals include decrease urinary urgency and frequency Prior Functional Status Baseline Function- ADL's Modified Independent Baseline Function- Mobility Modified Independent PT-OP-C Subjective Start: 03/14/23 08:14 Freq: Status: Active Protocol: Document 03/14/23 11:15 [facility] (Rec: 03/19/23 18:31 [facility] [id number]) Patient Questionnaires Pelvic Pain and Urgency/Frequency Patient Symptom Scale Pelvic Pain Score 12 PT-OP-F Manual Assessment Start: 03/14/23 08:14 Freq: Status: Active Protocol: Document 03/14/23 11:15 [facility] (Rec: 03/19/23 18:31 [facility] [id number]) Manual Assessments Joint Mobility Assessment Joint Mobility Assessment pt presents with multiple joint pain and is severly limited in ambulation and functional mobility due to joint pain and discomfort. PT-OP-I Pelvic Floor Start: 03/14/23 08:14 Freq: Status: Active Protocol: Document 03/14/23 11:15 [facility] (Rec: 03/19/23 18:31 [facility] [id number]) Pelvic Floor Assessment Urine Pelvic Floor Surgery No Urinary Symptoms Urge Sensation Other Urinary Symptoms pt is voiding 15-19 times per day and at least 3 times over night Leakage Size Large Leakage Cause Urge Other Leakage Causes walking to the toilet Leaks Per Day multiple Voiding Frequency every 45 min Nocturia 3 Pads Used In 24 Hours 5 Urine Pad Type Depends Pelvic Clock Pelvic Clock 12-3 Atrophy Pelvic Clock 3-6 Atrophy Pelvic Clock 6-9 Atrophy Pelvic Clock 9-12 Atrophy Contraction Ability Voluntary Contraction Weak Voluntary Relaxation Weak Manual Muscle Testing Left 2 Manual Muscle Testing Right 2 Manual Muscle Testing Anterior 2 Manual Muscle Testing Posterior 2 Muscle Endurance (Seconds) 4 PT-OP-J Posture/Palpation/Skin Start: 03/14/23 08:14 Freq: Status: Active Protocol: Document 03/14/23 11:15 [facility] (Rec: 03/19/23 18:31 [facility] [id number]) Posture Evaluation Position Standing Evaluation View Lateral Head/C-Spine Posture Forward Head L-Spine Posture Increased Lordosis Shoulder Posture (L) Rounded,(R) Rounded,(L) Forward,(R) Forward PT-OP-M Strength Start: 03/14/23 08:14 Freq: Status: Active Protocol: Document 03/14/23 11:15 [facility] (Rec: 03/19/23 18:31 [facility] [id number]) Trunk Strength Trunk Manual Muscle Testing Testing Position Supine Flexion 2- Poor- Extension 2- Poor- Lateral Flexion Left 2- Poor- Lateral Flexion Right 2- Poor- Core Stabilization poor core stabilization, pt strains with activites such as sit to stand and rolling in bed PT-OP-Q Treatments Start: 03/14/23 08:14 Freq: Status: Active Protocol: Document 03/14/23 11:15 [facility] (Rec: 03/19/23 18:31 [facility] [id number]) Therapeutic Exercises Supine Exercises supine ball squeeze Reps/Minutes hold 5 seconds relax 5 sec x 10 reps pelvic floor quick flicks Reps/Minutes x 10 reps holding 2 seconds and relaxing 2 seconds supine pelvic floor contraction Reps/Minutes hold 10 seconds and relax 10 seconds Self-Care/Home Management Treatment Education Patient Education Home Exercise Program Other Education pt was educated in the urge deference technique and bladder retraining PT-OP-T Assessment and Plan Start: 03/14/23 08:14 Freq: Status: Active Protocol: Document 03/14/23 11:15 [facility] (Rec: 03/19/23 18:31 [facility] [id number]) Physical Therapy Assessment Rehab Potential Rehabilitation Potential Fair Evaluation Complexity Number of Personal Factors/Comorbidities 3 or More Number of Body Systems Impaired 3 Clinical Presentation at Evaluation Evolving Impairments Impairments Activity Tolerance,Functional Activities,Functional Mobility ,Pain,Strength,Tone Other Impairments urinary urgency and frequency and urinary urge incontinence Goals 4 Impairment urinary incontinence that is happening when trying to walk to the toilet after a urge leaking through the diaper pad Assisted Goal (LTG) Jeremias notes improved control with urgency and is able to perform a sit -stand with pelvic floor bracing decreasing leakage on the way to the bathroom LTG Duration 8 weeks+ 3 Impairment Pelvic floor weakness with decreased endurance of the pelvic floor Assisted Goal (LTG) Jeremias is able to sustain a pelvic floor contraction x 10 seconds 2 Impairment c/o urinary frequency and urgency every 45 min during the day and 3 times at night Short Term Goal (STG) Jeremias is educated in bladder retraining and the urge deference technique STG Duration 4 weeks Spike Machine Feeder Goal (LTG) Jeremias is able to increase time between voids to every 2 hours throughout the day LTG Duration 8 weeks 1 Impairment pt lacks a HEP for pelvic floor strengthening Assisted Goal (LTG) Jeremias is independent with a HEP for pelvic floor strengtheing LTG Duration 8 weeks Assessment Summary Assessment Jeremias is a 67 year old male referred to PT with chief complaints of urge incontinence and urgency/ frequency. He reports he has a urge to void approx every 45 min and often does not make it to the bathroom without leaking on the way there. He also wakes 3 times per night to void. He is wearing a diaper pad that he needs to change frequently throughout the day. With exam Jeremias presents with a great amount of functional weakness. He has a history of type II diabetes and is largely obese. He struggles with functional activites such as sit to stand due to knee and hip pain and he visable struggles with these activities. Walking is extremely difficult for him due to pain. He is a good candidate for a FWW for support to off load his joints as just taking steps is jarring for him and must place a great amount of pressure down on his bladder. He was educated today on the urge deference technique and bladder retraining. Due to his decreased functional mobility it was difficult for him to lay on his back for exercises. Pelvic floor and hip strengthening exercises will be modified to sitting and semi reclined positions. Physical Therapy Plan Frequency and Duration Frequency of Treatment 1x/Week Duration of treatment (weeks) 8 Plan of Care Start Date 03/14/23 Plan of Care End Date 05/09/23 Therapeutic Interventions Therapeutic Interventions Home Exercise Program,Patient/ Caregiver Education,Self-Care/ Home Management,Therapeutic Exercises Modalities Biofeedback Next Visit Focus/Plan Next Note Type Treatment Note Next Visit Plan review urge deference technique and begin working on functional strengthing of the pelvic floor next visit
--- NOTE | 2023-03-14 18:39 | PT.OPPOC ---
Physical, Occupational & Speech Therapy At [facility] Current Diagnoses Urge incontinence (03/14/23) Visit Care Team Role Provider Type Efrain Duggan MD Family Provider Physician Primary Care Provider Specialty: Family Practice Address: [address] [place] [address], [address], [address] Email: [email or web address] Amarilis Chase MD Attending Provider Physician Referring Provider Specialty: Urology Address: [address] [place] [address], [address] Email: Plan Of Care PT-OP-T Assessment and Plan Start: 03/14/23 08:14 Freq: Status: Active Protocol: Document 03/14/23 11:15 [facility] (Rec: 03/19/23 18:31 [facility] [id number]) Physical Therapy Assessment Rehab Potential Rehabilitation Potential Fair Evaluation Complexity Number of Personal Factors/Comorbidities 3 or More Number of Body Systems Impaired 3 Clinical Presentation at Evaluation Evolving Impairments Impairments Activity Tolerance,Functional Activities,Functional Mobility ,Pain,Strength,Tone Other Impairments urinary urgency and frequency and urinary urge incontinence Goals 4 Impairment urinary incontinence that is happening when trying to walk to the toilet after a urge leaking through the diaper pad Pond Tender Goal (LTG) Jeremias notes improved control with urgency and is able to perform a sit -stand with pelvic floor bracing decreasing leakage on the way to the bathroom LTG Duration 8 weeks+ 3 Impairment Pelvic floor weakness with decreased endurance of the pelvic floor Pond Tender Goal (LTG) Jeremias is able to sustain a pelvic floor contraction x 10 seconds 2 Impairment c/o urinary frequency and urgency every 45 min during the day and 3 times at night Short Term Goal (STG) Jeremias is educated in bladder retraining and the urge deference technique STG Duration 4 weeks Long-Term Goal (LTG) Jeremias is able to increase time between voids to every 2 hours throughout the day LTG Duration 8 weeks 1 Impairment pt lacks a HEP for pelvic floor strengthening Pond Tender Goal (LTG) Jeremias is independent with a HEP for pelvic floor strengthening LTG Duration 8 weeks Assessment Summary Assessment Jeremias is a 67 year old male referred to PT with chief complaints of urge incontinence and urgency/ frequency. He reports he has a urge to void approx every 45 min and often does not make it to the bathroom without leaking on the way there. He also wakes 3 times per night to void. He is wearing a diaper pad that he needs to change frequently throughout the day. With exam Jeremias presents with a great amount of functional weakness. He has a history of type II diabetes and is largely obese. He struggles with functional activites such as sit to stand due to knee and hip pain and he visable struggles with these activities. Walking is extremely difficult for him due to pain. He is a good candidate for a FWW for support to off load his joints as just taking steps is jarring for him and must place a great amount of pressure down on his bladder. He was educated today on the urge deference technique and bladder retraining. Due to his decreased functional mobility it was difficult for him to lay on his back for exercises. Pelvic floor and hip strengthening exercises will be modified to sitting and semi reclined positions. Physical Therapy Plan Frequency and Duration Frequency of Treatment 1x/Week Duration of treatment (weeks) 8 Plan of Care Start Date 03/14/23 Plan of Care End Date 05/09/23 Therapeutic Interventions Therapeutic Interventions Home Exercise Program,Patient/ Caregiver Education,Self-Care/ Home Management,Therapeutic Exercises Modalities Biofeedback Next Visit Focus/Plan Next Note Type Treatment Note Next Visit Plan review urge deference technique and begin working on functional strengthening of the pelvic floor next visit Plan of Care Dates Plan of Care Start Date 03/14/23 Plan of Care End Date 05/09/23 Electronically Signed by: Rachael Tran, PT 03/19/23 [id number] If you are in agreement with this Plan of Care, please return a signed and dated copy. I have reviewed this Plan of Care and certify that the skilled therapy services above are required to meet the patient?s needs. Physician Signature Date Printed Name and Credentials Clinical Instructor Signature Printed Name and Credentials
--- NOTE | 2023-03-28 12:16 | PT.OTN ---
Current Diagnoses Urge incontinence (03/28/23) Physical Therapy Treatment Note PT-OP-A Visit Information Start: 03/14/23 08:14 Freq: Status: Active Protocol: Document 03/28/23 11:12 [facility] (Rec: 03/28/23 12:10 [facility] [id number]) Out-Patient Physical Therapy Visit Information Visit Information Visit Type Treatment Note Visit Start Time 11:15 Visit Stop Time 12:00 Total Visit Minutes 45 Visit Number 2 PT-OP-B Current Condition Start: 03/14/23 08:14 Freq: Status: Active Protocol: Document 03/14/23 11:22 [facility] (Rec: 03/14/23 12:15 [facility] [id number]) Current Condition History of Current Condition Onset Date chronic but worsening Current Complaints frequent urinary urgency and urge incontinence History of Current Condition several years of frequent urgency, sometimes he cant make it through a hour TV show without having to go to the bathroom. When he stands he will leak getting to the toilet. Pt notes its not uncommon that he doesn't fully empty his bladder. Pt notes he goes back and forth between constipated and then loose. Hx of Hemrhoid surgery over 10 years ago. He was recently diagnosed with . Hx of a fall 20 years ago onto his tailbone. He denies symptoms of stress incontinence. The urge wakes him at night to void. Treatment Goals Patient/Caregiver Goals pts goals include decrease urinary urgency and frequency Prior Functional Status Baseline Function- ADL's Modified Independent Baseline Function- Mobility Modified Independent PT-OP-C Subjective Start: 03/14/23 08:14 Freq: Status: Active Protocol: Document 03/28/23 11:12 [facility] (Rec: 03/28/23 12:10 [facility] [id number]) OP-PT Subjective Patient Comments Patient Comments pt notes there has been a a few times that the urge technique worked for him. PT-OP-F Manual Assessment Start: 03/14/23 08:14 Freq: Status: Active Protocol: Document 03/14/23 11:15 [facility] (Rec: 03/19/23 18:31 [facility] [id number]) Manual Assessments Joint Mobility Assessment Joint Mobility Assessment pt presents with multiple joint pain and is severly limited in ambulation and functional mobility due to joint pain and discomfort. PT-OP-I Pelvic Floor Start: 03/14/23 08:14 Freq: Status: Active Protocol: Document 03/14/23 11:15 [facility] (Rec: 03/19/23 18:31 [facility] [id number]) Pelvic Floor Assessment Urine Pelvic Floor Surgery No Urinary Symptoms Urge Sensation Other Urinary Symptoms pt is voiding 15-19 times per day and at least 3 times over night Leakage Size Large Leakage Cause Urge Other Leakage Causes walking to the toilet Leaks Per Day multiple Voiding Frequency every 45 min Nocturia 3 Pads Used In 24 Hours 5 Urine Pad Type Depends Pelvic Clock Pelvic Clock 12-3 Atrophy Pelvic Clock 3-6 Atrophy Pelvic Clock 6-9 Atrophy Pelvic Clock 9-12 Atrophy Contraction Ability Voluntary Contraction Weak Voluntary Relaxation Weak Manual Muscle Testing Left 2 Manual Muscle Testing Right 2 Manual Muscle Testing Anterior 2 Manual Muscle Testing Posterior 2 Muscle Endurance (Seconds) 4 PT-OP-J Posture/Palpation/Skin Start: 03/14/23 08:14 Freq: Status: Active Protocol: Document 03/14/23 11:15 [facility] (Rec: 03/19/23 18:31 [facility] [id number]) Posture Evaluation Position Standing Evaluation View Lateral Head/C-Spine Posture Forward Head L-Spine Posture Increased Lordosis Shoulder Posture (L) Rounded,(R) Rounded,(L) Forward,(R) Forward PT-OP-M Strength Start: 03/14/23 08:14 Freq: Status: Active Protocol: Document 03/14/23 11:15 [facility] (Rec: 03/19/23 18:31 [facility] [id number]) Trunk Strength Trunk Manual Muscle Testing Testing Position Supine Flexion 2- Poor- Extension 2- Poor- Lateral Flexion Left 2- Poor- Lateral Flexion Right 2- Poor- Core Stabilization poor core stabilization, pt strains with activites such as sit to stand and rolling in bed PT-OP-Q Treatments Start: 03/14/23 08:14 Freq: Status: Active Protocol: Document 03/28/23 11:12 [facility] (Rec: 03/28/23 12:10 [facility] [id number]) Therapeutic Exercises Supine Exercises templates for eccentric control and coordination Supine Exercise Name with EMG rectal sensor Reps/Minutes x 8 min pelvic floor long holds Supine Exercise Name with EMG rectal sensor Reps/Minutes 5.4 average 10.1 max supine ball squeeze Supine Exercise Name worked in sidelying today with EMG biofeedback Reps/Minutes 5 sec holds x 10 reps Comments ball works well in sidelying pelvic floor quick flicks Supine Exercise Name with EMG rectal sensor Reps/Minutes x 10 reps holding 2 seconds and relaxing 2 seconds supine pelvic floor contraction Reps/Minutes hold 10 seconds and relax 10 seconds Self-Care/Home Management Treatment Education Patient Education Home Exercise Program Other Education HEP was given for pelvic floor education and strengtheing, pt was given a graph handout of EMG biofeedback results today to take home PT-OP-T Assessment and Plan Start: 03/14/23 08:14 Freq: Status: Active Protocol: Document 03/28/23 11:12 [facility] (Rec: 03/28/23 12:10 [facility] [id number]) Physical Therapy Assessment Assessment Summary Assessment We worked on pelvic floor longholds today with EMG biofeedback. This was difficult for Jeremias to perform and to sustain a pelvic floor contraction. He does fatigue following 10 reps. He would benefit from continued endurance training of the pelvic floor utilizing EMG biofeedback Physical Therapy Plan Frequency and Duration Frequency of Treatment 1x/Week Duration of treatment (weeks) 8 Plan of Care Start Date 03/14/23 Plan of Care End Date 05/09/23 Therapeutic Interventions Therapeutic Interventions Home Exercise Program,Patient/ Caregiver Education,Self-Care/ Home Management,Therapeutic Exercises Modalities Biofeedback Next Visit Focus/Plan Next Note Type Treatment Note Next Visit Plan continue with EMG biofeedback strengthening for the pelvic floor working on improving Jeremias's ability to sustain a pelvic floor contraction
--- NOTE | 2023-04-09 16:38 | PT.OTN ---
Current Diagnoses Urge incontinence (04/09/23) Physical Therapy Treatment Note PT-OP-A Visit Information Start: 03/14/23 08:14 Freq: Status: Active Protocol: Document 04/09/23 11:18 [facility] (Rec: 04/09/23 12:10 [facility] [id number]) Out-Patient Physical Therapy Visit Information Visit Information Visit Type Treatment Note Visit Start Time 11:20 Visit Stop Time 12:00 Total Visit Minutes 40 Visit Number 4 PT-OP-B Current Condition Start: 03/14/23 08:14 Freq: Status: Active Protocol: Document 03/14/23 11:22 [facility] (Rec: 03/14/23 12:15 [facility] [id number]) Current Condition History of Current Condition Onset Date chronic but worsening Current Complaints frequent urinary urgency and urge incontinence History of Current Condition several years of frequent urgency, sometimes he cant make it through a hour TV show without having to go to the bathroom. When he stands he will leak getting to the toilet. Pt notes its not uncommon that he doesn't fully empty his bladder. Pt notes he goes back and forth between constipated and then loose. Hx of Hemrhoid surgery over 10 years ago. He was recently diagnosed with . Hx of a fall 20 years ago onto his tailbone. He denies symptoms of stress incontinence. The urge wakes him at night to void. Treatment Goals Patient/Caregiver Goals pts goals include decrease urinary urgency and frequency Prior Functional Status Baseline Function- ADL's Modified Independent Baseline Function- Mobility Modified Independent PT-OP-C Subjective Start: 03/14/23 08:14 Freq: Status: Active Protocol: Document 04/09/23 11:18 [facility] (Rec: 04/09/23 12:10 [facility] [id number]) OP-PT Subjective Patient Comments Patient Comments pt notes he is trying to do the urge technique. Pt does have a referral for humeria and wondering if this will help his pain PT-OP-F Manual Assessment Start: 03/14/23 08:14 Freq: Status: Active Protocol: Document 03/14/23 11:15 [facility] (Rec: 03/19/23 18:31 [facility] [id number]) Manual Assessments Joint Mobility Assessment Joint Mobility Assessment pt presents with multiple joint pain and is severly limited in ambulation and functional mobility due to joint pain and discomfort. PT-OP-I Pelvic Floor Start: 03/14/23 08:14 Freq: Status: Active Protocol: Document 03/14/23 11:15 [facility] (Rec: 03/19/23 18:31 [facility] [id number]) Pelvic Floor Assessment Urine Pelvic Floor Surgery No Urinary Symptoms Urge Sensation Other Urinary Symptoms pt is voiding 15-19 times per day and at least 3 times over night Leakage Size Large Leakage Cause Urge Other Leakage Causes walking to the toilet Leaks Per Day multiple Voiding Frequency every 45 min Nocturia 3 Pads Used In 24 Hours 5 Urine Pad Type Depends Pelvic Clock Pelvic Clock 12-3 Atrophy Pelvic Clock 3-6 Atrophy Pelvic Clock 6-9 Atrophy Pelvic Clock 9-12 Atrophy Contraction Ability Voluntary Contraction Weak Voluntary Relaxation Weak Manual Muscle Testing Left 2 Manual Muscle Testing Right 2 Manual Muscle Testing Anterior 2 Manual Muscle Testing Posterior 2 Muscle Endurance (Seconds) 4 PT-OP-J Posture/Palpation/Skin Start: 03/14/23 08:14 Freq: Status: Active Protocol: Document 03/14/23 11:15 [facility] (Rec: 03/19/23 18:31 [facility] [id number]) Posture Evaluation Position Standing Evaluation View Lateral Head/C-Spine Posture Forward Head L-Spine Posture Increased Lordosis Shoulder Posture (L) Rounded,(R) Rounded,(L) Forward,(R) Forward PT-OP-M Strength Start: 03/14/23 08:14 Freq: Status: Active Protocol: Document 03/14/23 11:15 [facility] (Rec: 03/19/23 18:31 [facility] [id number]) Trunk Strength Trunk Manual Muscle Testing Testing Position Supine Flexion 2- Poor- Extension 2- Poor- Lateral Flexion Left 2- Poor- Lateral Flexion Right 2- Poor- Core Stabilization poor core stabilization, pt strains with activites such as sit to stand and rolling in bed PT-OP-Q Treatments Start: 03/14/23 08:14 Freq: Status: Active Protocol: Document 04/09/23 11:18 [facility] (Rec: 04/09/23 12:10 [facility] [id number]) Therapeutic Exercises Supine Exercises roll outs with theraband Equipment Used level 2 theraband Reps/Minutes 3 x 10 reps pelvic floor long holds Supine Exercise Name with EMG rectal sensor Reps/Minutes 12.9 with max of 33 uv supine ball squeeze Reps/Minutes x 10 reps pelvic floor quick flicks Reps/Minutes 2 sec on 2 sec off x 10 reps Self-Care/Home Management Treatment Education Patient Education Home Exercise Program Other Education education on constipation and how it adds to bladder symptoms, I also recommended the pool to Jeremias as a place to exercise where maybe he would not experience as much pain PT-OP-T Assessment and Plan Start: 03/14/23 08:14 Freq: Status: Active Protocol: Document 04/09/23 11:15 [facility] (Rec: 04/09/23 16:35 [facility] [id number]) Physical Therapy Assessment Assessment Summary Assessment Jeremias did show progress with endurance today with pelvic floor. He talks about constipation and how he feels a few times a month he is constipated. We discussed how this can effect his bladder and to continue working on diet to improve bowel movements Physical Therapy Plan Frequency and Duration Frequency of Treatment 1x/Week Duration of treatment (weeks) 8 Plan of Care Start Date 03/14/23 Plan of Care End Date 05/09/23 Next Visit Focus/Plan Next Note Type Treatment Note Next Visit Plan continue with EMG biofeedback strengthening for the pelvic floor working on improving Jeremias's ability to sustain a pelvic floor contraction
--- NOTE | 2023-04-16 16:57 | PT.OTN ---
Current Diagnoses Urge incontinence (04/16/23) Physical Therapy Treatment Note PT-OP-A Visit Information Start: 03/14/23 08:14 Freq: Status: Active Protocol: Document 04/16/23 11:17 [facility] (Rec: 04/16/23 12:02 [facility] [id number]) Out-Patient Physical Therapy Visit Information Visit Information Visit Type Treatment Note Visit Start Time 11:20 Visit Stop Time 12:00 Total Visit Minutes 40 Visit Number 5 PT-OP-B Current Condition Start: 03/14/23 08:14 Freq: Status: Active Protocol: Document 03/14/23 11:22 [facility] (Rec: 03/14/23 12:15 [facility] [id number]) Current Condition History of Current Condition Onset Date chronic but worsening Current Complaints frequent urinary urgency and urge incontinence History of Current Condition several years of frequent urgency, sometimes he cant make it through a hour TV show without having to go to the bathroom. When he stands he will leak getting to the toilet. Pt notes its not uncommon that he doesn't fully empty his bladder. Pt notes he goes back and forth between constipated and then loose. Hx of Hemrhoid surgery over 10 years ago. He was recently diagnosed with . Hx of a fall 20 years ago onto his tailbone. He denies symptoms of stress incontinence. The urge wakes him at night to void. Treatment Goals Patient/Caregiver Goals pts goals include decrease urinary urgency and frequency Prior Functional Status Baseline Function- ADL's Modified Independent Baseline Function- Mobility Modified Independent PT-OP-C Subjective Start: 03/14/23 08:14 Freq: Status: Active Protocol: Document 04/16/23 11:17 [facility] (Rec: 04/16/23 12:02 [facility] [id number]) OP-PT Subjective Patient Comments Patient Comments pt notes he notes that maybe he has some less leakage and less urgency Patient Reported Progress Improving PT-OP-F Manual Assessment Start: 03/14/23 08:14 Freq: Status: Active Protocol: Document 03/14/23 11:15 [facility] (Rec: 03/19/23 18:31 [facility] [id number]) Manual Assessments Joint Mobility Assessment Joint Mobility Assessment pt presents with multiple joint pain and is severly limited in ambulation and functional mobility due to joint pain and discomfort. PT-OP-I Pelvic Floor Start: 03/14/23 08:14 Freq: Status: Active Protocol: Document 03/14/23 11:15 [facility] (Rec: 03/19/23 18:31 [facility] [id number]) Pelvic Floor Assessment Urine Pelvic Floor Surgery No Urinary Symptoms Urge Sensation Other Urinary Symptoms pt is voiding 15-19 times per day and at least 3 times over night Leakage Size Large Leakage Cause Urge Other Leakage Causes walking to the toilet Leaks Per Day multiple Voiding Frequency every 45 min Nocturia 3 Pads Used In 24 Hours 5 Urine Pad Type Depends Pelvic Clock Pelvic Clock 12-3 Atrophy Pelvic Clock 3-6 Atrophy Pelvic Clock 6-9 Atrophy Pelvic Clock 9-12 Atrophy Contraction Ability Voluntary Contraction Weak Voluntary Relaxation Weak Manual Muscle Testing Left 2 Manual Muscle Testing Right 2 Manual Muscle Testing Anterior 2 Manual Muscle Testing Posterior 2 Muscle Endurance (Seconds) 4 PT-OP-J Posture/Palpation/Skin Start: 03/14/23 08:14 Freq: Status: Active Protocol: Document 03/14/23 11:15 [facility] (Rec: 03/19/23 18:31 [facility] [id number]) Posture Evaluation Position Standing Evaluation View Lateral Head/C-Spine Posture Forward Head L-Spine Posture Increased Lordosis Shoulder Posture (L) Rounded,(R) Rounded,(L) Forward,(R) Forward PT-OP-M Strength Start: 03/14/23 08:14 Freq: Status: Active Protocol: Document 03/14/23 11:15 [facility] (Rec: 03/19/23 18:31 [facility] [id number]) Trunk Strength Trunk Manual Muscle Testing Testing Position Supine Flexion 2- Poor- Extension 2- Poor- Lateral Flexion Left 2- Poor- Lateral Flexion Right 2- Poor- Core Stabilization poor core stabilization, pt strains with activites such as sit to stand and rolling in bed PT-OP-Q Treatments Start: 03/14/23 08:14 Freq: Status: Active Protocol: Document 04/16/23 11:17 [facility] (Rec: 04/16/23 12:02 [facility] [id number]) Therapeutic Exercises Supine Exercises roll outs with theraband Equipment Used level 2 theraband Reps/Minutes 3 x 10 reps Comments did in sitting today templates for eccentric control and coordination Supine Exercise Name with EMG rectal sensor Reps/Minutes x 8 min pelvic floor long holds Reps/Minutes 35.5 average and max 61.9 supine ball squeeze Supine Exercise Name with pelvic floor activation Side bilateral Comments worked in a seated position today pelvic floor quick flicks Reps/Minutes max of 65.3 max PT-OP-T Assessment and Plan Start: 03/14/23 08:14 Freq: Status: Active Protocol: Document 04/16/23 11:17 [facility] (Rec: 04/16/23 12:02 [facility] [id number]) Physical Therapy Assessment Assessment Summary Assessment pt notes he is having longer stretches of time inbetween having to go and has been making it some of the time to the bathroom . He is showing progress with both pelvic floor endurance and contraction intensity Physical Therapy Plan Frequency and Duration Frequency of Treatment 1x/Week Duration of treatment (weeks) 8 Plan of Care Start Date 03/14/23 Plan of Care End Date 05/09/23 Next Visit Focus/Plan Next Note Type Treatment Note Next Visit Plan start with stretches to open up the hips next visit
--- NOTE | 2023-04-23 16:43 | PT.OTN ---
Current Diagnoses Urge incontinence (04/23/23) Physical Therapy Treatment Note PT-OP-A Visit Information Start: 03/14/23 08:14 Freq: Status: Active Protocol: Document 04/23/23 14:33 [facility] (Rec: 04/23/23 15:19 [facility] [id number]) Out-Patient Physical Therapy Visit Information Visit Information Visit Type Treatment Note Visit Start Time 14:35 Visit Stop Time 15:15 Total Visit Minutes 40 Visit Number 6 PT-OP-B Current Condition Start: 03/14/23 08:14 Freq: Status: Active Protocol: Document 03/14/23 11:22 [facility] (Rec: 03/14/23 12:15 [facility] [id number]) Current Condition History of Current Condition Onset Date chronic but worsening Current Complaints frequent urinary urgency and urge incontinence History of Current Condition several years of frequent urgency, sometimes he cant make it through a hour TV show without having to go to the bathroom. When he stands he will leak getting to the toilet. Pt notes its not uncommon that he doesn't fully empty his bladder. Pt notes he goes back and forth between constipated and then loose. Hx of Hemrhoid surgery over 10 years ago. He was recently diagnosed with . Hx of a fall 20 years ago onto his tailbone. He denies symptoms of stress incontinence. The urge wakes him at night to void. Treatment Goals Patient/Caregiver Goals pts goals include decrease urinary urgency and frequency Prior Functional Status Baseline Function- ADL's Modified Independent Baseline Function- Mobility Modified Independent PT-OP-C Subjective Start: 03/14/23 08:14 Freq: Status: Active Protocol: Document 04/23/23 14:33 [facility] (Rec: 04/23/23 15:19 [facility] [id number]) OP-PT Subjective Patient Comments Patient Comments pt notes symptoms are about the same as last visit Sciatic pain mostly on the left but its not too bad at the moment PT-OP-F Manual Assessment Start: 03/14/23 08:14 Freq: Status: Active Protocol: Document 03/14/23 11:15 [facility] (Rec: 03/19/23 18:31 [facility] [id number]) Manual Assessments Joint Mobility Assessment Joint Mobility Assessment pt presents with multiple joint pain and is severly limited in ambulation and functional mobility due to joint pain and discomfort. PT-OP-I Pelvic Floor Start: 03/14/23 08:14 Freq: Status: Active Protocol: Document 03/14/23 11:15 [facility] (Rec: 03/19/23 18:31 [facility] [id number]) Pelvic Floor Assessment Urine Pelvic Floor Surgery No Urinary Symptoms Urge Sensation Other Urinary Symptoms pt is voiding 15-19 times per day and at least 3 times over night Leakage Size Large Leakage Cause Urge Other Leakage Causes walking to the toilet Leaks Per Day multiple Voiding Frequency every 45 min Nocturia 3 Pads Used In 24 Hours 5 Urine Pad Type Depends Pelvic Clock Pelvic Clock 12-3 Atrophy Pelvic Clock 3-6 Atrophy Pelvic Clock 6-9 Atrophy Pelvic Clock 9-12 Atrophy Contraction Ability Voluntary Contraction Weak Voluntary Relaxation Weak Manual Muscle Testing Left 2 Manual Muscle Testing Right 2 Manual Muscle Testing Anterior 2 Manual Muscle Testing Posterior 2 Muscle Endurance (Seconds) 4 PT-OP-J Posture/Palpation/Skin Start: 03/14/23 08:14 Freq: Status: Active Protocol: Document 03/14/23 11:15 [facility] (Rec: 03/19/23 18:31 [facility] [id number]) Posture Evaluation Position Standing Evaluation View Lateral Head/C-Spine Posture Forward Head L-Spine Posture Increased Lordosis Shoulder Posture (L) Rounded,(R) Rounded,(L) Forward,(R) Forward PT-OP-M Strength Start: 03/14/23 08:14 Freq: Status: Active Protocol: Document 03/14/23 11:15 [facility] (Rec: 03/19/23 18:31 [facility] [id number]) Trunk Strength Trunk Manual Muscle Testing Testing Position Supine Flexion 2- Poor- Extension 2- Poor- Lateral Flexion Left 2- Poor- Lateral Flexion Right 2- Poor- Core Stabilization poor core stabilization, pt strains with activites such as sit to stand and rolling in bed PT-OP-Q Treatments Start: 03/14/23 08:14 Freq: Status: Active Protocol: Document 04/23/23 14:33 [facility] (Rec: 04/23/23 15:19 [facility] [id number]) Therapeutic Exercises Supine Exercises supine knee to chest Reps/Minutes hold x 30 sec templates for eccentric control and coordination Supine Exercise Name with EMG rectal sensor Reps/Minutes x 8 min pelvic floor long holds Supine Exercise Name with EMG rectal sensor Reps/Minutes 38 average and 63 max 10 reps holding 10 seconds and relaxing 10 seconds pelvic floor quick flicks Reps/Minutes 62.7 uv max 10 reps holding 2 seconds and relaxing x 2 seconds Standing Exercises standing adductor stretch Reps/Minutes adductor stretch modified down dog Reps/Minutes hold 1-2 min PT-OP-T Assessment and Plan Start: 03/14/23 08:14 Freq: Status: Active Protocol: Document 04/23/23 16:40 [facility] (Rec: 04/23/23 16:42 [facility] [id number]) Physical Therapy Assessment Assessment Summary Assessment Good tolerance for hip stretches in standing and Jeremias did well using a sheet to help pull up the hip to stretch in supine. Pelvic floor was slightly better today for average contraction Physical Therapy Plan Frequency and Duration Frequency of Treatment 1x/Week Duration of treatment (weeks) 8 Plan of Care Start Date 03/14/23 Plan of Care End Date 05/09/23 Therapeutic Interventions Therapeutic Interventions Home Exercise Program,Patient/ Caregiver Education,Self-Care/ Home Management,Therapeutic Exercises Modalities Biofeedback Next Visit Focus/Plan Next Note Type Treatment Note Next Visit Plan review hip stretches next visit and continue with pelvic floor strengthening
--- NOTE | 2023-05-16 11:25 | PT.OTN ---
Current Diagnoses Urge incontinence (05/16/23) Physical Therapy Treatment Note PT-OP-A Visit Information Start: 03/14/23 08:14 Freq: Status: Active Protocol: Document 05/16/23 10:34 [facility] (Rec: 05/16/23 11:24 [facility] [id number]) Out-Patient Physical Therapy Visit Information Visit Information Visit Type Treatment Note Visit Start Time 10:35 Visit Stop Time 01:15 Visit Number 7 PT-OP-B Current Condition Start: 03/14/23 08:14 Freq: Status: Active Protocol: Document 03/14/23 11:22 [facility] (Rec: 03/14/23 12:15 [facility] [id number]) Current Condition History of Current Condition Onset Date chronic but worsening Current Complaints frequent urinary urgency and urge incontinence History of Current Condition several years of frequent urgency, sometimes he cant make it through a hour TV show without having to go to the bathroom. When he stands he will leak getting to the toilet. Pt notes its not uncommon that he doesn't fully empty his bladder. Pt notes he goes back and forth between constipated and then loose. Hx of Hemrhoid surgery over 10 years ago. He was recently diagnosed with . Hx of a fall 20 years ago onto his tailbone. He denies symptoms of stress incontinence. The urge wakes him at night to void. Treatment Goals Patient/Caregiver Goals pts goals include decrease urinary urgency and frequency Prior Functional Status Baseline Function- ADL's Modified Independent Baseline Function- Mobility Modified Independent PT-OP-C Subjective Start: 03/14/23 08:14 Freq: Status: Active Protocol: Document 05/16/23 10:34 [facility] (Rec: 05/16/23 11:24 [facility] [id number]) OP-PT Subjective Patient Comments Patient Comments Jeremias reports it has been difficult for him to do his exercises at home PT-OP-F Manual Assessment Start: 03/14/23 08:14 Freq: Status: Active Protocol: Document 03/14/23 11:15 [facility] (Rec: 03/19/23 18:31 [facility] [id number]) Manual Assessments Joint Mobility Assessment Joint Mobility Assessment pt presents with multiple joint pain and is severly limited in ambulation and functional mobility due to joint pain and discomfort. PT-OP-I Pelvic Floor Start: 03/14/23 08:14 Freq: Status: Active Protocol: Document 03/14/23 11:15 [facility] (Rec: 03/19/23 18:31 [facility] [id number]) Pelvic Floor Assessment Urine Pelvic Floor Surgery No Urinary Symptoms Urge Sensation Other Urinary Symptoms pt is voiding 15-19 times per day and at least 3 times over night Leakage Size Large Leakage Cause Urge Other Leakage Causes walking to the toilet Leaks Per Day multiple Voiding Frequency every 45 min Nocturia 3 Pads Used In 24 Hours 5 Urine Pad Type Depends Pelvic Clock Pelvic Clock 12-3 Atrophy Pelvic Clock 3-6 Atrophy Pelvic Clock 6-9 Atrophy Pelvic Clock 9-12 Atrophy Contraction Ability Voluntary Contraction Weak Voluntary Relaxation Weak Manual Muscle Testing Left 2 Manual Muscle Testing Right 2 Manual Muscle Testing Anterior 2 Manual Muscle Testing Posterior 2 Muscle Endurance (Seconds) 4 PT-OP-J Posture/Palpation/Skin Start: 03/14/23 08:14 Freq: Status: Active Protocol: Document 03/14/23 11:15 [facility] (Rec: 03/19/23 18:31 [facility] [id number]) Posture Evaluation Position Standing Evaluation View Lateral Head/C-Spine Posture Forward Head L-Spine Posture Increased Lordosis Shoulder Posture (L) Rounded,(R) Rounded,(L) Forward,(R) Forward PT-OP-M Strength Start: 03/14/23 08:14 Freq: Status: Active Protocol: Document 03/14/23 11:15 [facility] (Rec: 03/19/23 18:31 [facility] [id number]) Trunk Strength Trunk Manual Muscle Testing Testing Position Supine Flexion 2- Poor- Extension 2- Poor- Lateral Flexion Left 2- Poor- Lateral Flexion Right 2- Poor- Core Stabilization poor core stabilization, pt strains with activites such as sit to stand and rolling in bed PT-OP-Q Treatments Start: 03/14/23 08:14 Freq: Status: Active Protocol: Document 05/16/23 10:34 [facility] (Rec: 05/16/23 11:24 [facility] [id number]) Therapeutic Exercises Supine Exercises TA with march Reps/Minutes x 10 each side bridges Side bilateral Reps/Minutes x 10 reps supine knee to chest Reps/Minutes hold x 30 sec pelvic floor long holds Supine Exercise Name with EMG rectal sensor Reps/Minutes 30 average and max of 61 uv Comments 10 reps on and 10 reps off supine ball squeeze Side bilateral Reps/Minutes x 10 reps pelvic floor quick flicks Reps/Minutes 38.5 uv max Sidelying Exercises clam shell Reps/Minutes x 15 PT-OP-T Assessment and Plan Start: 03/14/23 08:14 Freq: Status: Active Protocol: Document 05/16/23 10:34 [facility] (Rec: 05/16/23 11:24 [facility] [id number]) Physical Therapy Assessment Goals 4 Impairment urinary incontinence that is happening when trying to walk to the toilet after a urge leaking through the diaper pad Prison Goal (LTG) Jeremias notes improved control with urgency and is able to perform a sit -stand with pelvic floor bracing decreasing leakage on the way to the bathroom No change LTG Duration 8 weeks+ 3 Impairment Pelvic floor weakness with decreased endurance of the pelvic floor Floral Merchandiser Goal (LTG) Jeremias is able to sustain a pelvic floor contraction x 10 seconds goal met 2 Impairment c/o urinary frequency and urgency every 45 min during the day and 3 times at night Short Term Goal (STG) Jeremias is educated in bladder retraining and the urge deference technique GOAL MET STG Duration 4 weeks Floral Merchandiser Goal (LTG) Jeremias is able to increase time between voids to every 2 hours throughout the day Goal not yet met LTG Duration 8 weeks 1 Impairment pt lacks a HEP for pelvic floor strengthening Floral Merchandiser Goal (LTG) Jeremias is independent with a HEP for pelvic floor strengthening Goal not yet met LTG Duration 8 weeks Assessment Summary Assessment Jeremias has been seen x 7 visits in PT. It has been difficult for him to do his exercises due to high pain levels in his knees and hips. I have worked on modifying exercise positions for him to try and make the exercises more comfortable. At this point he is still experiencing the urgency and notes the only thing that helps is restricting water. I have educated him on the benefits of staying hydrated. He has 2 visits left in PT to continue to review and modify his exercise program. Physical Therapy Plan Frequency and Duration Frequency of Treatment 1x/Week Duration of treatment (weeks) 6 Plan of Care Start Date 05/16/23 Plan of Care End Date 06/27/23 Therapeutic Interventions Therapeutic Interventions Home Exercise Program,Patient/ Caregiver Education,Self-Care/ Home Management,Therapeutic Exercises Modalities Biofeedback
--- NOTE | 2023-05-16 11:25 | PT.OPPOC ---
Physical, Occupational & Speech Therapy At [facility] Current Diagnoses Urge incontinence (05/16/23) Visit Care Team Role Provider Type Efrain Duggan MD Family Provider Physician Primary Care Provider Specialty: Family Practice Address: [address] [place] [address], [address], [place], [address] Email: [email or web address] [email or web address] Chase MD Attending Provider Physician Referring Provider Specialty: Urology Address: [address] [place] [address], [id number] Email: Plan Of Care PT-OP-T Assessment and Plan Start: 03/14/23 08:14 Freq: Status: Active Protocol: Document 05/16/23 10:34 [facility] (Rec: 05/16/23 11:24 [facility] [id number]) Physical Therapy Assessment Goals 4 Impairment urinary incontinence that is happening when trying to walk to the toilet after a urge leaking through the diaper pad Detention Goal (LTG) Jeremias notes improved control with urgency and is able to perform a sit -stand with pelvic floor bracing decreasing leakage on the way to the bathroom No change LTG Duration 8 weeks+ 3 Impairment Pelvic floor weakness with decreased endurance of the pelvic floor Preconstruction Manager Goal (LTG) Jeremias is able to sustain a pelvic floor contraction x 10 seconds goal met 2 Impairment c/o urinary frequency and urgency every 45 min during the day and 3 times at night Short Term Goal (STG) Jeremias is educated in bladder retraining and the urge deference technique GOAL MET STG Duration 4 weeks Preconstruction Manager Goal (LTG) Jeremias is able to increase time between voids to every 2 hours throughout the day Goal not yet met LTG Duration 8 weeks 1 Impairment pt lacks a HEP for pelvic floor strengthening Detention Goal (LTG) Jeremias is independent with a HEP for pelvic floor strengtheing Goal not yet met LTG Duration 8 weeks Assessment Summary Assessment Jeremias has been seen x 7 visits in PT. It has been difficult for him to do his exercises due to high pain levels in his knees and hips. I have worked on modifying exercise positions for him to try and make the exercises more comfortable. At this point he is still experiencing the urgency and notes the only thing that helps is restricting water. I have educated him on the benefits of staying hydrated. He has 2 visits left in PT to continue to review and modify his exercise program. Physical Therapy Plan Frequency and Duration Frequency of Treatment 1x/Week Duration of treatment (weeks) 6 Plan of Care Start Date 05/16/23 Plan of Care End Date 06/27/23 Therapeutic Interventions Therapeutic Interventions Home Exercise Program,Patient/ Caregiver Education,Self-Care/ Home Management,Therapeutic Exercises Modalities Biofeedback Plan of Care Dates Plan of Care Start Date 05/16/23 Plan of Care End Date 06/27/23 Electronically Signed by: Rachael Tran, PT 05/16/23 [id number] If you are in agreement with this Plan of Care, please return a signed and dated copy. I have reviewed this Plan of Care and certify that the skilled therapy services above are required to meet the patient?s needs. Physician Signature Date Printed Name and Credentials Clinical Instructor Signature Printed Name and Credentials
--- NOTE | 2023-05-30 11:19 | PT.OTN ---
Current Diagnoses Urge incontinence (05/30/23) Physical Therapy Treatment Note PT-OP-A Visit Information Start: 03/14/23 08:14 Freq: Status: Active Protocol: Document 05/30/23 10:34 [facility] (Rec: 05/30/23 11:19 [facility] [id number]) Out-Patient Physical Therapy Visit Information Visit Information Visit Type Treatment Note Visit Start Time 10:34 Visit Stop Time 11:15 Visit Number 8 PT-OP-B Current Condition Start: 03/14/23 08:14 Freq: Status: Active Protocol: Document 03/14/23 11:22 [facility] (Rec: 03/14/23 12:15 [facility] [id number]) Current Condition History of Current Condition Onset Date chronic but worsening Current Complaints frequent urinary urgency and urge incontinence History of Current Condition several years of frequent urgency, sometimes he cant make it through a hour TV show without having to go to the bathroom. When he stands he will leak getting to the toilet. Pt notes its not uncommon that he doesn't fully empty his bladder. Pt notes he goes back and forth between constipated and then loose. Hx of Hemrhoid surgery over 10 years ago. He was recently diagnosed with . Hx of a fall 20 years ago onto his tailbone. He denies symptoms of stress incontinence. The urge wakes him at night to void. Treatment Goals Patient/Caregiver Goals pts goals include decrease urinary urgency and frequency Prior Functional Status Baseline Function- ADL's Modified Independent Baseline Function- Mobility Modified Independent PT-OP-C Subjective Start: 03/14/23 08:14 Freq: Status: Active Protocol: Document 05/30/23 10:34 [facility] (Rec: 05/30/23 11:19 [facility] [id number]) OP-PT Subjective Patient Comments Patient Comments pt reports he is not going to the bathroom as much but he feels like he is not drinking as much. He is doing better with doing his exericses PT-OP-F Manual Assessment Start: 03/14/23 08:14 Freq: Status: Active Protocol: Document 03/14/23 11:15 [facility] (Rec: 03/19/23 18:31 [facility] [id number]) Manual Assessments Joint Mobility Assessment Joint Mobility Assessment pt presents with multiple joint pain and is severly limited in ambulation and functional mobility due to joint pain and discomfort. PT-OP-I Pelvic Floor Start: 03/14/23 08:14 Freq: Status: Active Protocol: Document 03/14/23 11:15 [facility] (Rec: 03/19/23 18:31 [facility] [id number]) Pelvic Floor Assessment Urine Pelvic Floor Surgery No Urinary Symptoms Urge Sensation Other Urinary Symptoms pt is voiding 15-19 times per day and at least 3 times over night Leakage Size Large Leakage Cause Urge Other Leakage Causes walking to the toilet Leaks Per Day multiple Voiding Frequency every 45 min Nocturia 3 Pads Used In 24 Hours 5 Urine Pad Type Depends Pelvic Clock Pelvic Clock 12-3 Atrophy Pelvic Clock 3-6 Atrophy Pelvic Clock 6-9 Atrophy Pelvic Clock 9-12 Atrophy Contraction Ability Voluntary Contraction Weak Voluntary Relaxation Weak Manual Muscle Testing Left 2 Manual Muscle Testing Right 2 Manual Muscle Testing Anterior 2 Manual Muscle Testing Posterior 2 Muscle Endurance (Seconds) 4 PT-OP-J Posture/Palpation/Skin Start: 03/14/23 08:14 Freq: Status: Active Protocol: Document 03/14/23 11:15 [facility] (Rec: 03/19/23 18:31 [facility] [id number]) Posture Evaluation Position Standing Evaluation View Lateral Head/C-Spine Posture Forward Head L-Spine Posture Increased Lordosis Shoulder Posture (L) Rounded,(R) Rounded,(L) Forward,(R) Forward PT-OP-M Strength Start: 03/14/23 08:14 Freq: Status: Active Protocol: Document 03/14/23 11:15 [facility] (Rec: 03/19/23 18:31 [facility] [id number]) Trunk Strength Trunk Manual Muscle Testing Testing Position Supine Flexion 2- Poor- Extension 2- Poor- Lateral Flexion Left 2- Poor- Lateral Flexion Right 2- Poor- Core Stabilization poor core stabilization, pt strains with activites such as sit to stand and rolling in bed PT-OP-Q Treatments Start: 03/14/23 08:14 Freq: Status: Active Protocol: Document 05/30/23 10:34 [facility] (Rec: 05/30/23 11:19 [facility] [id number]) Therapeutic Exercises Supine Exercises TA with march Reps/Minutes x 10 each side bridges Side bilateral Reps/Minutes x 10 reps supine knee to chest Reps/Minutes hold x 30 sec Comments attempted but held off due to calf cramping pelvic floor long holds Reps/Minutes 45 average and max of 83 Comments 10 reps on and 10 reps off pelvic floor quick flicks Reps/Minutes 56 uv max Sidelying Exercises clam shell Reps/Minutes x 20 reps PT-OP-T Assessment and Plan Start: 03/14/23 08:14 Freq: Status: Active Protocol: Document 05/30/23 10:34 [facility] (Rec: 05/30/23 11:19 [facility] [id number]) Physical Therapy Assessment Goals 4 Impairment urinary incontinence that is happening when trying to walk to the toilet after a urge leaking through the diaper pad Business Continuity Strategy Director Goal (LTG) Jeremias notes improved control with urgency and is able to perform a sit -stand with pelvic floor bracing decreasing leakage on the way to the bathroom No change LTG Duration 8 weeks+ 3 Impairment Pelvic floor weakness with decreased endurance of the pelvic floor [facility] Goal (LTG) Jeremias is able to sustain a pelvic floor contraction x 10 seconds goal met 2 Impairment c/o urinary frequency and urgency every 45 min during the day and 3 times at night Short Term Goal (STG) Jeremias is educated in bladder retraining and the urge deference technique GOAL MET STG Duration 4 weeks [facility] Goal (LTG) Jeremias is able to increase time between voids to every 2 hours throughout the day Goal not yet met LTG Duration 8 weeks 1 Impairment pt lacks a HEP for pelvic floor strengthening [facility] Goal (LTG) Jeremias is independent with a HEP for pelvic floor strengthening Goal not yet met LTG Duration 8 weeks Assessment Summary Assessment Jeremias has been doing better with his exercises at home and he has been able to tolerate the bridges and clam shells. His numbers were higher on EMG biofeedback today so I do think this has helped. Physical Therapy Plan Frequency and Duration Frequency of Treatment 1x/Week Duration of treatment (weeks) 6 Plan of Care Start Date 05/16/23 Plan of Care End Date 06/27/23 Therapeutic Interventions Therapeutic Interventions Home Exercise Program,Patient/ Caregiver Education,Self-Care/ Home Management,Therapeutic Exercises Modalities Biofeedback Next Visit Focus/Plan Next Note Type Treatment Note Next Visit Plan review all extablished exercises next visit as this is his last scheduled visit in PT
--- NOTE | 2023-06-06 14:08 | PT.OTN ---
Current Diagnoses Urge incontinence (06/06/23) Physical Therapy Treatment Note PT-OP-A Visit Information Start: 03/14/23 08:14 Freq: Status: Active Protocol: Document 06/06/23 10:39 [facility] (Rec: 06/06/23 11:18 [facility] [id number]) Out-Patient Physical Therapy Visit Information Visit Information Visit Type Treatment Note Visit Start Time 10:35 Visit Stop Time 11:15 Visit Number 9 PT-OP-B Current Condition Start: 03/14/23 08:14 Freq: Status: Active Protocol: Document 03/14/23 11:22 [facility] (Rec: 03/14/23 12:15 [facility] [id number]) Current Condition History of Current Condition Onset Date chronic but worsening Current Complaints frequent urinary urgency and urge incontinence History of Current Condition several years of frequent urgency, sometimes he cant make it through a hour TV show without having to go to the bathroom. When he stands he will leak getting to the toilet. Pt notes its not uncommon that he doesn't fully empty his bladder. Pt notes he goes back and forth between constipated and then loose. Hx of Hemrhoid surgery over 10 years ago. He was recently diagnosed with . Hx of a fall 20 years ago onto his tailbone. He denies symptoms of stress incontinence. The urge wakes him at night to void. Treatment Goals Patient/Caregiver Goals pts goals include decrease urinary urgency and frequency Prior Functional Status Baseline Function- ADL's Modified Independent Baseline Function- Mobility Modified Independent PT-OP-C Subjective Start: 03/14/23 08:14 Freq: Status: Active Protocol: Document 06/06/23 13:58 [facility] (Rec: 06/06/23 14:00 [facility] [id number]) OP-PT Subjective Patient Comments Patient Comments Jeremias reports that holding back on his fluids is the only thing that is really helping him with urgency. Patient Reported Progress Same PT-OP-F Manual Assessment Start: 03/14/23 08:14 Freq: Status: Active Protocol: Document 03/14/23 11:15 [facility] (Rec: 03/19/23 18:31 [facility] [id number]) Manual Assessments Joint Mobility Assessment Joint Mobility Assessment pt presents with multiple joint pain and is severly limited in ambulation and functional mobility due to joint pain and discomfort. PT-OP-I Pelvic Floor Start: 03/14/23 08:14 Freq: Status: Active Protocol: Document 03/14/23 11:15 [facility] (Rec: 03/19/23 18:31 [facility] [id number]) Pelvic Floor Assessment Urine Pelvic Floor Surgery No Urinary Symptoms Urge Sensation Other Urinary Symptoms pt is voiding 15-19 times per day and at least 3 times over night Leakage Size Large Leakage Cause Urge Other Leakage Causes walking to the toilet Leaks Per Day multiple Voiding Frequency every 45 min Nocturia 3 Pads Used In 24 Hours 5 Urine Pad Type Depends Pelvic Clock Pelvic Clock 12-3 Atrophy Pelvic Clock 3-6 Atrophy Pelvic Clock 6-9 Atrophy Pelvic Clock 9-12 Atrophy Contraction Ability Voluntary Contraction Weak Voluntary Relaxation Weak Manual Muscle Testing Left 2 Manual Muscle Testing Right 2 Manual Muscle Testing Anterior 2 Manual Muscle Testing Posterior 2 Muscle Endurance (Seconds) 4 PT-OP-J Posture/Palpation/Skin Start: 03/14/23 08:14 Freq: Status: Active Protocol: Document 03/14/23 11:15 [facility] (Rec: 03/19/23 18:31 [facility] [id number]) Posture Evaluation Position Standing Evaluation View Lateral Head/C-Spine Posture Forward Head L-Spine Posture Increased Lordosis Shoulder Posture (L) Rounded,(R) Rounded,(L) Forward,(R) Forward PT-OP-M Strength Start: 03/14/23 08:14 Freq: Status: Active Protocol: Document 03/14/23 11:15 [facility] (Rec: 03/19/23 18:31 [facility] [id number]) Trunk Strength Trunk Manual Muscle Testing Testing Position Supine Flexion 2- Poor- Extension 2- Poor- Lateral Flexion Left 2- Poor- Lateral Flexion Right 2- Poor- Core Stabilization poor core stabilization, pt strains with activites such as sit to stand and rolling in bed PT-OP-Q Treatments Start: 03/14/23 08:14 Freq: Status: Active Protocol: Document 06/06/23 10:35 [facility] (Rec: 06/06/23 11:18 [facility] [id number]) Therapeutic Exercises Supine Exercises TA with march Reps/Minutes x 15 each side bridges Side bilateral Reps/Minutes x 10 reps roll outs with theraband Equipment Used level 2 theraband Reps/Minutes 3 x 10 reps Comments did in sitting today pelvic floor long holds Reps/Minutes 45 average and max of 83 Comments 10 reps on and 10 reps off supine ball squeeze Side bilateral Reps/Minutes x 10 reps Standing Exercises standing adductor stretch Reps/Minutes dynamic stretch x 5 each side modified down dog Reps/Minutes hold 1-2 min PT-OP-T Assessment and Plan Start: 03/14/23 08:14 Freq: Status: Active Protocol: Document 06/06/23 10:35 [facility] (Rec: 06/06/23 14:00 [facility] [id number]) Physical Therapy Assessment Goals 4 Impairment urinary incontinence that is happening when trying to walk to the toilet after a urge leaking through the diaper pad Jet Aircraft Servicer Goal (LTG) Jeremias notes improved control with urgency and is able to perform a sit -stand with pelvic floor bracing decreasing leakage on the way to the bathroom No change LTG Duration 8 weeks+ 3 Impairment Pelvic floor weakness with decreased endurance of the pelvic floor Jet Aircraft Servicer Goal (LTG) Jeremias is able to sustain a pelvic floor contraction x 10 seconds goal met 2 Impairment c/o urinary frequency and urgency every 45 min during the day and 3 times at night Short Term Goal (STG) Jeremias is educated in bladder retraining and the urge deference technique GOAL MET STG Duration 4 weeks Jet Aircraft Servicer Goal (LTG) Jeremias is able to increase time between voids to every 2 hours throughout the day Goal not yet met LTG Duration 8 weeks 1 Impairment pt lacks a HEP for pelvic floor strengthening Halfway Goal (LTG) Jeremias is independent with a HEP for pelvic floor strengtheing Goal not yet met LTG Duration 8 weeks Assessment Summary Assessment Jeremias has been seen x 9 visits for pelvic floor PT working to improve pelvic floor strength. He has shown a good amount of increase of strength on EMG biofeedback from a 5 uv average to now a 45 uv average. Despite the increase in pelvic floor strength he is still experiencing urge incontinence symptoms. If he restricts water thes gets better but he becomes severly dehydrated and exhitibs muscle cramps during his appointments. I have talked to him about the importance of drinking water to avoid dehydration. At this point he will make a follow up with Dr. Chase to discuss any further options. I have encouraged Jeremias to continue with his HEP. Physical Therapy Plan Discharge Physical Therapy Discharge Reasons Plateau in Progress
== END 2023-06-11 07:56 | disposition home or self-care (01) ==
LOC: PHYS 10:30
PROVIDERS: Family Provider Family Medicine; PCP Family Medicine; Referring Provider Specialist; Visit Provider Specialist
DX: N39.41 Urge incontinence (principal)
CPT/HCPCS: 97110; 97161; 97535

== ENCOUNTER → 2023-08-27 15:44 | Outpatient (CLI) | payer OTHER, SELFPAY ==
[2023-08-27 17:25] LABS: Add Manual Diff / Slide Review NO; Basophils Absolute Auto 0 /uL (0-100); Basophils Percent Auto 0.5 % (0-2); Eosinophils Absolute Auto 200 /uL (0-450); Eosinophils Percent Auto 2.5 % (2-4); Hematocrit 39.1 % (41-53); Hemoglobin 13.2 g/dL (13.5-17.5); Lymphocytes Absolute Auto 2900 /uL (1100-4500); Lymphocytes Percent Auto 38.2 % (25-40); Mean Corpuscular HGB Conc 33.8 % (30-36); Mean Corpuscular Hemoglobin 32.2 PG (26-34); Mean Corpuscular Volume 95.5 fL (80-100); Monocytes Absolute Auto 600 /uL (0-900); Monocytes Percent Auto 7.6 % (3-14); Neutrophils Absolute Auto 3900 /uL (1500-7000); Neutrophils Percent Auto 51.2 % (50-75); Platelet Count 203 X10^3/uL (150-400); Red Cell Distribution Width 13.9 % (11.6-14.8); White Blood Cell Count 7.5 X10^3/uL (4.5-11.0)
[2023-08-27 17:43] LABS: Alanine Aminotransferase 48 IU/L (<50); Albumin 4.4 g/dL (3.5-5.0); Albumin Globulin Ratio 1.6 (1.0-2.8); Alkaline Phosphatase 79 U/L (38-126); Aspartate Aminotransferase 39 IU/L (17-59); BUN Creatinine Ratio 22.4 (6-22); Bilirubin Total 0.4 mg/dL (0.2-1.3); Blood Urea Nitrogen 19 mg/dL (9-20); C-Reactive Protein Quant < 0.5 mg/dL (<1.0); Calcium 9.2 mg/dL (8.4-10.2); Carbon Dioxide 25 mmol/L (22-32); Chloride 109 mmol/L (98-107); Estimated Glomerular Filt Rate > 60 mL/min (>60); Globulin 2.7 g/dL (1.7-4.1); Glucose 101 mg/dL (80-110); HEMOLYSIS < 15 (0-50); Sodium 142 mmol/L (137-145); Total Protein 7.1 g/dL (6.3-8.2)
== END ==
PROVIDERS: Family Provider Family Medicine; PCP Family Medicine; Referring Provider Internal Medicine Rheumatology; Visit Provider Internal Medicine Rheumatology
DX: M45.9 Ankylosing spondylitis of unspecified sites in spine (principal)
CPT/HCPCS: 36415; 80053; 85025; 86140

== ENCOUNTER → 2023-11-09 08:22 | Outpatient (CLI) | payer OTHER, SELFPAY ==
[2023-11-09 09:39] LABS: Add Manual Diff / Slide Review NO; Basophils Absolute Auto 0 /uL (0-100); Basophils Percent Auto 0.3 % (0-2); Eosinophils Absolute Auto 200 /uL (0-450); Eosinophils Percent Auto 2.8 % (2-4); Hemoglobin 12.8 g/dL (13.5-17.5); Lymphocytes Absolute Auto 2800 /uL (1100-4500); Lymphocytes Percent Auto 38.8 % (25-40); Mean Corpuscular HGB Conc 33.8 % (30-36); Mean Corpuscular Hemoglobin 31.9 PG (26-34); Mean Corpuscular Volume 94.5 fL (80-100); Monocytes Absolute Auto 700 /uL (0-900); Monocytes Percent Auto 9.7 % (3-14); Neutrophils Absolute Auto 3400 /uL (1500-7000); Neutrophils Percent Auto 48.4 % (50-75); Platelet Count 198 X10^3/uL (150-400); Red Blood Cell Count 4.02 X10^6/uL (4.5-5.9); Red Cell Distribution Width 14.1 % (11.6-14.8); White Blood Cell Count 7.1 X10^3/uL (4.5-11.0)
[2023-11-09 10:07] LABS: Hemoglobin A1C% w Est Avg Glu 6.1 % (4.0-6.0)
[2023-11-09 10:19] LABS: Erythrocyte Sedimentation Rate 13 MM/HR (0-15)
[2023-11-09 10:19] LABS: Albumin 4.1 g/dL (3.5-5.0); BUN Creatinine Ratio 17.9 (6-22); Blood Urea Nitrogen 19 mg/dL (9-20); Calcium 9.1 mg/dL (8.4-10.2); Carbon Dioxide 26 mmol/L (22-32); Chloride 108 mmol/L (98-107); Cholesterol 112 mg/dL (140-199); Estimated Glomerular Filt Rate > 60 mL/min (>60); Glucose 125 mg/dL (80-110); HDL Cholesterol 30 mg/dL (40-60); HEMOLYSIS 24 (0-50); LDL Cholesterol Calculated 38 mg/dL (<100); Phosphorous 4.2 mg/dL (2.3-3.7); Potassium 4.8 mmol/L (3.4-5.1); Sodium 141 mmol/L (137-145); Triglycerides 220 mg/dL (35-150)
[2023-11-09 10:24] LABS: Alanine Aminotransferase 55 IU/L (<50); Albumin 4.1 g/dL (3.5-5.0); Albumin Globulin Ratio 1.5 (1.0-2.8); Alkaline Phosphatase 69 U/L (38-126); Aspartate Aminotransferase 49 IU/L (17-59); BUN Creatinine Ratio 17.6 (6-22); Bilirubin Total 0.5 mg/dL (0.2-1.3); Blood Urea Nitrogen 19 mg/dL (9-20); C-Reactive Protein Quant < 0.5 mg/dL (<1.0); Calcium 9.1 mg/dL (8.4-10.2); Carbon Dioxide 25 mmol/L (22-32); Chloride 107 mmol/L (98-107); Estimated Glomerular Filt Rate > 60 mL/min (>60); Globulin 2.7 g/dL (1.7-4.1); Glucose 119 mg/dL (80-110); HEMOLYSIS < 15 (0-50); Potassium 4.6 mmol/L (3.4-5.1); Sodium 140 mmol/L (137-145); Total Protein 6.8 g/dL (6.3-8.2)
[2023-11-09 11:53] LABS: Creatinine Urine Random 318.49 mg/dL
[2023-11-09 11:59] LABS: Microalbumin Urine Random 10.5 mg/dL (0-1.6)
== END ==
PROVIDERS: Student in an Organized Health Care Education/Training Program; Family Provider Family Medicine; PCP Family Medicine; Referring Provider Internal Medicine Rheumatology; Visit Provider Internal Medicine Rheumatology
DX: M45.9 Ankylosing spondylitis of unspecified sites in spine (principal); E11.29 Type 2 diabetes mellitus with other diabetic kidney complication; R80.9 Proteinuria, unspecified
CPT/HCPCS: 80053; 80061; 80069; 82043; 82570; 83036; 85025; 85651; 86140

== ENCOUNTER → 2024-01-09 14:41 | Outpatient (CLI) | payer OTHER, SELFPAY | LOC: WC 14:42 | PROVIDERS: Family Provider Family Medicine; PCP Family Medicine; Referring Provider Family Medicine; Visit Provider Surgery | DX: I89.0 Lymphedema, not elsewhere classified (principal); L53.9 Erythematous condition, unspecified; I87.2 Venous insufficiency (chronic) (peripheral); E11.628 Type 2 diabetes mellitus with other skin complications; E11.42 Type 2 diabetes mellitus with diabetic polyneuropathy | CPT/HCPCS: 99203; 99212 ==

== ENCOUNTER → 2024-01-14 12:01 | Outpatient (CLI) | payer OTHER, SELFPAY ==
--- NOTE | 2024-01-14 12:15 | DI.US.S_ITS ---
PROCEDURE: US ARTERIAL DUPLEX LE BI INDICATIONS: SWELLING TECHNIQUE: Color and pulse Doppler interrogation was performed of both lower extremity arterial systems, with image documentation. COMPARISON: None. FINDINGS: Right lower extremity: Common femoral artery: 200 cm/sec, with triphasic flow. Deep femoral artery: 144 cm/sec, with triphasic flow. Proximal superficial femoral artery: 146 cm/sec, with triphasic flow. Mid superficial femoral artery: 86 cm/sec, with triphasic flow. Distal superficial femoral artery: 140 cm/sec, with triphasic flow. Popliteal artery: 72 cm/sec, with triphasic flow. Posterior tibial artery: 140 cm/sec, with triphasic flow. Anterior tibial artery/dorsalis pedis: 97 cm/sec, with triphasic flow. Velasquez-scale imaging description: Widely patent vessels from the common femoral through the popliteal. Left lower extremity: Common femoral artery: 168 cm/sec, with triphasic flow. Deep femoral artery: 112 cm/sec, with triphasic flow. Proximal superficial femoral artery: 152 cm/sec, with triphasic flow. Mid superficial femoral artery: 88 cm/sec, with triphasic flow. Distal superficial femoral artery: 87 cm/sec, with triphasic flow. Popliteal artery: 82 cm/sec, with triphasic flow. Posterior tibial artery: 106 cm/sec, with triphasic flow. Anterior tibial artery/dorsalis pedis: 130 cm/sec, with monophasic flow. Velasquez-scale imaging description: Widely patent vessels from the common femoral through the popliteal. IMPRESSION: Unremarkable bilateral lower extremity duplex arterial ultrasound. Dictated by: Hola Olmstead M.D. on 01/14/2024 at 16:08 Approved by: Hola Olmstead M.D. on 01/14/2024 at 16:10
== END ==
LOC: US 12:01
PROVIDERS: Family Provider Family Medicine; PCP Family Medicine; Referring Provider Surgery; Visit Provider Surgery
DX: I89.0 Lymphedema, not elsewhere classified (principal)
CPT/HCPCS: 93925

== ENCOUNTER → 2024-01-16 14:35 | Outpatient (CLI) | payer OTHER, SELFPAY | LOC: WC 14:35 | PROVIDERS: Family Provider Family Medicine; PCP Family Medicine; Referring Provider Family Medicine; Visit Provider Surgery | DX: L97.822 Non-pressure chronic ulcer of other part of left lower leg with fat layer exposed (principal); L97.812 Non-pressure chronic ulcer of other part of right lower leg with fat layer exposed; I89.0 Lymphedema, not elsewhere classified; R60.0 Localized edema; I87.2 Venous insufficiency (chronic) (peripheral) | CPT/HCPCS: 29581; 97602; 99213 ==

== ENCOUNTER → 2024-01-20 08:43 | Outpatient (CLI) | payer OTHER, SELFPAY | LOC: WC 08:44 | PROVIDERS: Family Provider Family Medicine; PCP Family Medicine; Referring Provider Family Medicine; Visit Provider Surgery | DX: I89.0 Lymphedema, not elsewhere classified (principal); L97.812 Non-pressure chronic ulcer of other part of right lower leg with fat layer exposed; L97.822 Non-pressure chronic ulcer of other part of left lower leg with fat layer exposed | CPT/HCPCS: 29581 ==

== ENCOUNTER → 2024-01-23 14:37 | Outpatient (CLI) | payer OTHER, SELFPAY | LOC: WC 14:38 | PROVIDERS: Family Provider Family Medicine; PCP Family Medicine; Referring Provider Family Medicine; Visit Provider Surgery | DX: I89.0 Lymphedema, not elsewhere classified (principal); L97.822 Non-pressure chronic ulcer of other part of left lower leg with fat layer exposed; I87.2 Venous insufficiency (chronic) (peripheral) | CPT/HCPCS: 11042; 29581 ==

== ENCOUNTER → 2024-01-27 13:58 | Outpatient (CLI) | payer OTHER, SELFPAY | LOC: WC 13:59 | PROVIDERS: Family Provider Family Medicine; PCP Family Medicine; Referring Provider Family Medicine; Visit Provider Surgery | DX: I89.0 Lymphedema, not elsewhere classified (principal); L97.822 Non-pressure chronic ulcer of other part of left lower leg with fat layer exposed | CPT/HCPCS: 29581 ==

== ENCOUNTER → 2024-01-30 13:12 | Outpatient (CLI) | payer OTHER, SELFPAY | LOC: WC 13:12 | PROVIDERS: Family Provider Family Medicine; PCP Family Medicine; Referring Provider Family Medicine; Visit Provider Physician Assistant | DX: I89.0 Lymphedema, not elsewhere classified (principal); L97.822 Non-pressure chronic ulcer of other part of left lower leg with fat layer exposed; I87.2 Venous insufficiency (chronic) (peripheral); E11.42 Type 2 diabetes mellitus with diabetic polyneuropathy; I10 Essential (primary) hypertension | CPT/HCPCS: 11042 ==

== ENCOUNTER → 2024-02-06 13:24 | Outpatient (CLI) | payer OTHER, SELFPAY | PROVIDERS: Family Provider Family Medicine; PCP Family Medicine; Referring Provider Family Medicine; Visit Provider Surgery | DX: I89.0 Lymphedema, not elsewhere classified (principal); I87.2 Venous insufficiency (chronic) (peripheral); L97.822 Non-pressure chronic ulcer of other part of left lower leg with fat layer exposed | CPT/HCPCS: 11042; 29581; 99213 ==

== ENCOUNTER → 2024-02-13 13:25 | Outpatient (CLI) | payer OTHER, SELFPAY | PROVIDERS: Family Provider Family Medicine; PCP Family Medicine; Referring Provider Family Medicine; Visit Provider Surgery | DX: L97.822 Non-pressure chronic ulcer of other part of left lower leg with fat layer exposed (principal); I89.0 Lymphedema, not elsewhere classified; I87.2 Venous insufficiency (chronic) (peripheral); E11.622 Type 2 diabetes mellitus with other skin ulcer | CPT/HCPCS: 11042 ==

== ENCOUNTER → 2024-02-20 14:22 | Outpatient (CLI) | payer OTHER, SELFPAY | PROVIDERS: Family Provider Family Medicine; PCP Family Medicine; Referring Provider Family Medicine; Visit Provider Surgery | DX: I89.0 Lymphedema, not elsewhere classified (principal); L97.822 Non-pressure chronic ulcer of other part of left lower leg with fat layer exposed; I87.2 Venous insufficiency (chronic) (peripheral) | CPT/HCPCS: 11042; 87070; 87077; 87186; 87205; 99213 ==

== ENCOUNTER → 2024-02-26 13:55 | Outpatient (CLI) | payer OTHER, SELFPAY | PROVIDERS: Family Provider Family Medicine; PCP Family Medicine; Referring Provider Family Medicine; Visit Provider Physician Assistant | DX: I89.0 Lymphedema, not elsewhere classified (principal); L97.822 Non-pressure chronic ulcer of other part of left lower leg with fat layer exposed; E11.622 Type 2 diabetes mellitus with other skin ulcer; I87.2 Venous insufficiency (chronic) (peripheral); I10 Essential (primary) hypertension | CPT/HCPCS: 11042; 99213 ==

== ENCOUNTER → 2024-03-05 11:11 | Outpatient (CLI) | payer OTHER, SELFPAY | PROVIDERS: Family Provider Family Medicine; PCP Family Medicine; Referring Provider Family Medicine; Visit Provider Surgery | DX: I89.0 Lymphedema, not elsewhere classified (principal); L97.822 Non-pressure chronic ulcer of other part of left lower leg with fat layer exposed; I87.2 Venous insufficiency (chronic) (peripheral); E11.622 Type 2 diabetes mellitus with other skin ulcer; E66.9 Obesity, unspecified; Z68.45 Body mass index [BMI] 70 or greater, adult | CPT/HCPCS: 11042; 99213 ==

== ENCOUNTER → 2024-03-12 11:21 | Outpatient (CLI) | payer OTHER, SELFPAY | PROVIDERS: Family Provider Family Medicine; PCP Family Medicine; Referring Provider Family Medicine; Visit Provider Surgery | DX: I89.0 Lymphedema, not elsewhere classified (principal); L97.822 Non-pressure chronic ulcer of other part of left lower leg with fat layer exposed; I87.2 Venous insufficiency (chronic) (peripheral); I10 Essential (primary) hypertension | CPT/HCPCS: 11042 ==

== ENCOUNTER → 2024-03-18 13:25 | Outpatient (CLI) | payer OTHER, SELFPAY | PROVIDERS: Family Provider Family Medicine; PCP Family Medicine; Referring Provider Family Medicine; Visit Provider Surgery | DX: I89.0 Lymphedema, not elsewhere classified (principal); L97.822 Non-pressure chronic ulcer of other part of left lower leg with fat layer exposed; I87.2 Venous insufficiency (chronic) (peripheral); E11.40 Type 2 diabetes mellitus with diabetic neuropathy, unspecified; I10 Essential (primary) hypertension | CPT/HCPCS: 11042 ==

== ENCOUNTER → 2024-03-23 08:36 | Outpatient (CLI) | payer OTHER, SELFPAY | PROVIDERS: Family Provider Family Medicine; PCP Family Medicine; Referring Provider Family Medicine; Visit Provider Physician Assistant | DX: L97.822 Non-pressure chronic ulcer of other part of left lower leg with fat layer exposed (principal); I89.0 Lymphedema, not elsewhere classified; I87.2 Venous insufficiency (chronic) (peripheral); E11.622 Type 2 diabetes mellitus with other skin ulcer | CPT/HCPCS: 11042; 99214 ==

== ENCOUNTER → 2024-03-30 14:31 | Outpatient (CLI) | payer OTHER, SELFPAY | LOC: WC 14:31 | PROVIDERS: Family Provider Family Medicine; PCP Family Medicine; Referring Provider Family Medicine; Visit Provider Surgery | DX: L97.822 Non-pressure chronic ulcer of other part of left lower leg with fat layer exposed (principal); I87.2 Venous insufficiency (chronic) (peripheral); I89.0 Lymphedema, not elsewhere classified; E11.622 Type 2 diabetes mellitus with other skin ulcer | CPT/HCPCS: 11042 ==

== ENCOUNTER → 2024-04-06 09:42 | Outpatient (CLI) | payer OTHER, SELFPAY | PROVIDERS: Family Provider Family Medicine; PCP Family Medicine; Referring Provider Family Medicine; Visit Provider Surgery | DX: L97.822 Non-pressure chronic ulcer of other part of left lower leg with fat layer exposed (principal); I87.2 Venous insufficiency (chronic) (peripheral); R60.0 Localized edema; I89.0 Lymphedema, not elsewhere classified; E11.622 Type 2 diabetes mellitus with other skin ulcer; E66.9 Obesity, unspecified; Z68.45 Body mass index [BMI] 70 or greater, adult | CPT/HCPCS: 11042; 99213 ==

== ENCOUNTER → 2024-04-14 11:20 | Outpatient (CLI) | payer OTHER, SELFPAY | PROVIDERS: Family Provider Family Medicine; PCP Family Medicine; Referring Provider Family Medicine; Visit Provider Surgery | DX: E11.622 Type 2 diabetes mellitus with other skin ulcer (principal); L97.822 Non-pressure chronic ulcer of other part of left lower leg with fat layer exposed; R60.0 Localized edema; I89.0 Lymphedema, not elsewhere classified; I87.2 Venous insufficiency (chronic) (peripheral) | CPT/HCPCS: 11042 ==

== ENCOUNTER → 2024-04-18 08:09 | Outpatient (CLI) | payer OTHER, SELFPAY ==
[2024-04-18 09:53] LABS: Alanine Aminotransferase 54 IU/L (<50); Albumin 4.5 g/dL (3.5-5.0); Albumin Globulin Ratio 1.5 (1.0-2.8); Alkaline Phosphatase 68 U/L (38-126); Aspartate Aminotransferase 48 IU/L (17-59); BUN Creatinine Ratio 22.2 (6-22); Bilirubin Total 0.5 mg/dL (0.2-1.3); Blood Urea Nitrogen 22 mg/dL (9-20); Calcium 8.9 mg/dL (8.4-10.2); Carbon Dioxide 26 mmol/L (22-32); Chloride 107 mmol/L (98-107); Estimated Glomerular Filt Rate > 60 mL/min (>60); Glucose 85 mg/dL (80-110); HEMOLYSIS < 15 (0-50); Potassium 4.7 mmol/L (3.4-5.1); Sodium 142 mmol/L (137-145); Total Protein 7.5 g/dL (6.3-8.2)
[2024-04-18 09:57] LABS: Albumin 4.5 g/dL (3.5-5.0); BUN Creatinine Ratio 20.8 (6-22); Blood Urea Nitrogen 22 mg/dL (9-20); Calcium 8.8 mg/dL (8.4-10.2); Carbon Dioxide 26 mmol/L (22-32); Chloride 108 mmol/L (98-107); Cholesterol 105 mg/dL (140-199); Estimated Glomerular Filt Rate > 60 mL/min (>60); Glucose 87 mg/dL (80-110); HDL Cholesterol 33 mg/dL (40-60); HEMOLYSIS < 15 (0-50); LDL Cholesterol Calculated 38 mg/dL (<100); Phosphorous 4.2 mg/dL (2.3-3.7); Potassium 4.7 mmol/L (3.4-5.1); Sodium 144 mmol/L (137-145); Triglycerides 170 mg/dL (35-150)
[2024-04-18 11:09] LABS: Hemoglobin A1C% w Est Avg Glu 5.8 % (4.0-6.0)
[2024-04-18 14:36] LABS: Creatinine Urine Random 150.82 mg/dL
[2024-04-18 14:40] LABS: Microalbumin Urine Random 3.2 mg/dL (0-1.6)
== END ==
PROVIDERS: Family Provider Family Medicine; PCP Family Medicine; Referring Provider Student in an Organized Health Care Education/Training Program; Visit Provider Student in an Organized Health Care Education/Training Program
DX: E11.69 Type 2 diabetes mellitus with other specified complication (principal); I10 Essential (primary) hypertension; E11.42 Type 2 diabetes mellitus with diabetic polyneuropathy; Z79.4 Long term (current) use of insulin; E11.9 Type 2 diabetes mellitus without complications
CPT/HCPCS: 36415; 80053; 80061; 80069; 82043; 82570; 83036

== ENCOUNTER → 2024-04-24 13:48 | Outpatient (CLI) | payer OTHER, SELFPAY | PROVIDERS: PCP Family Medicine; Referring Provider Family Medicine; Visit Provider Physician Assistant | DX: E11.40 Type 2 diabetes mellitus with diabetic neuropathy, unspecified (principal); I89.0 Lymphedema, not elsewhere classified; I87.2 Venous insufficiency (chronic) (peripheral); I10 Essential (primary) hypertension; Z87.2 Personal history of diseases of the skin and subcutaneous tissue | CPT/HCPCS: 99212 ==

== ENCOUNTER 2024-05-11 13:00 | Outpatient (RCR) | payer OTHER, SELFPAY ==
[2024-02-24 14:28] VITALS: BP 132/80
--- NOTE | 2024-02-24 16:42 | PT.OIE ---
Current Diagnoses Lymphedema, not elsewhere classified (02/24/24) Past Medical History (Last Updated 09/12/23 @ 11:41 by Amarilis Chase MD) Actinic keratosis due to exposure to sunlight (01/31/15) BPH loc w/o ur obs/LUTS Diabetes mellitus History of nephrolithiasis Hyperlipidemia Hypertension Kidney stones Kidney stones Lower urinary tract symptoms (LUTS) Sleep apnea Urge incontinence Past Surgical History (Last Reviewed 09/12/23 @ 11:40 by Amarilis Chase MD) History of sinus surgery Status post hemorrhoidectomy Visit Care Team Role Provider Type Efrain Duggan MD Family Provider Physician Primary Care Provider Specialty: Family Practice Address: [address] [place] [address], [address], [id number] Email: [email or web address] Alexander Kohler MD Attending Provider Physician Referring Provider Specialty: Wound Care Address: [address] [place] [address], [id number] Email: [email or web address] Initial Evaluation PT-OP-A Visit Information Start: 02/24/24 13:04 Freq: Status: Active Protocol: Document 02/24/24 14:28 [facility] (Rec: 02/24/24 13:18 [facility] [id number]) Out-Patient Physical Therapy Visit Information Visit Information Visit Type Initial Evaluation Visit Start Time 14:35 Visit Stop Time 16:04 Visit Number 1 Evaluation Information Evaluation Date 01/31/24 Precautions Precautions DM, neuropathy, venous insufficiency, HTN, obesity, ARAMBULA. Patient is 5'8, 397 lbs . PT-OP-B Current Condition Start: 02/24/24 13:04 Freq: Status: Active Protocol: Document 02/24/24 14:28 [facility] (Rec: 02/24/24 13:18 [facility] [id number]) Current Condition History of Current Condition Onset Date 2019 Current Complaints swelling bilateral LE's History of Current Condition Gradual onset and worsening swelling chata LE's especially since 2019. Diagnosed venous insufficiency and lymphedema Has worn compression stockings 25-30 for yrs due to father having bad legs and wanting to try to prevent same issue. Hasn't been seen in PT for CDT. Due to persistent and worsening edema chata RAFFAELE's was referred to wound care; has been seen in wound care since 01/09/24. Doppler ordered, was negative. Boils developed on both RAFFAELE's, persistent unhealed small wound remaining on left lower leg. Wound care ordered vecro compression wraps for feet and calves , reports about 40 cm circumference decrease since starting wound care. Reports severe ankylosing spondylosis, back pain, nerve damage left LE. Unable to exercise due to joint pain in all LE joints and low back. Has Nu-Step at home, min resistance tolerated but can ride for up to 1 hour . Doesn't tolerate going for walks due to joint pain. Requires use of FWW for ambulation. States he was started on an antibiotic last week by wound care. States velcro compression wraps seem too big for feet now. Interested if other option for compression, feels like compression wraps help calves but push fluid to knees and it doesn't go any further. Is interested in considering pneumatic pump for home use and receptive to discussion options for compression garments. Prior Treatments and Tests doppler last month negative for clots Treatment Goals Patient/Caregiver Goals decrease edema and be able to self manage lymphedema at home . Prior Functional Status Baseline Function- ADL's Independent Baseline Function- Mobility Independent Baseline Function- Gait indep Baseline Function- Work/School retired Baseline Function- Recreation/Hobbies able to do projects around the house Current Functional Impairments (Reported) Functional Limitations- ADL's painful Functional Limitations- Mobility/Gait painful, requires use of FWW Functional Limitations- Work/School retired Functional Limitations- Recreation/ unable to do house projects as Hobbies previously Personal Factors Other Personal Factors That May Effect obesity 388 lbs, DM, HTN Therapy/Recovery PT-OP-C Subjective Start: 02/24/24 13:04 Freq: Status: Active Protocol: Document 02/24/24 14:28 [facility] (Rec: 02/24/24 13:19 [facility] [id number]) Patient Questionnaires Lower Extremity Functional Scale LEFS Impairment 100% Impaired (Score 0) Lymphedema Life Impact Score Lymphedema Score 76 OP-PT Pain Assessment Pain Assessment Grid Paper Pain Assessment Grid Completed Yes Location RAFFAELE's Pain Location Details see pain chart Intensity 6 Description- Other hips and groins 4/10, knees 6/ 10, lower legs and feet 4/10, low back 4-5/10 PT-OP-F Manual Assessment Start: 02/24/24 13:04 Freq: Status: Active Protocol: Document 02/24/24 14:28 [facility] (Rec: 02/24/24 13:18 [facility] [id number]) Manual Assessments Soft Tissue Assessment Soft Tissue Mobility Assessment mild reddening chata lower legs knees to ankles, min warmth. No hemosiderin staining, mild fibrosis lower legs, no elephantiasis. PT-OP-G Mobility & Gait Start: 02/24/24 13:04 Freq: Status: Active Protocol: Document 02/24/24 14:28 [facility] (Rec: 02/24/24 13:18 [facility] [id number]) OP Mobility Evaluation Bed Mobility Rolling indep,labored Supine to and from Sit indep, labored OP Gait Assessment Gait Gait Assistance Required: Independent Assistive Devices Assistive Device Front Wheeled Walker Gait Deviations General Gait Pattern Decreased Stride Length, Decreased Feet Clearance,Wide Based Gait Factors Limiting Gait Function Factors Limiting Gait Function Pain Comments Gait Comments weight of legs with lymphedema PT-OP-H Neuro Start: 02/24/24 13:04 Freq: Status: Active Protocol: Document 02/24/24 14:28 [facility] (Rec: 02/24/24 13:18 [facility] [id number]) Sensation Evaluation Gross Sensation Gross Sensation Left LE Impaired,Right LE Impaired Location Details Right Leg Light Touch Impaired Left Leg Light Touch Impaired Vital Signs Blood Pressure Sitting Blood Pressure (90/60-120/80 mmHg) 132/80 H Blood Pressure Source Manual Cuff PT-OP-J Posture/Palpation/Skin Start: 02/24/24 13:04 Freq: Status: Active Protocol: Document 02/24/24 14:28 [facility] (Rec: 02/24/24 13:18 [facility] [id number]) Palpation Assessment Location chata LE's Palpation Findings Edema,Soft Tissue Tightness Palpation Details knees, lower legs, feet Skin Assessment Edema Assessment chata LE's Edema Type Non-Pitting Edema Degree 4+ Edema Appearance Puffy,Taut Subjective Edema Description Tightness PT-OP-K Range of Motion Start: 02/24/24 13:04 Freq: Status: Active Protocol: Document 02/24/24 14:28 [facility] (Rec: 02/24/24 13:18 [facility] [id number]) Hip Goniometric Range of Motion Hip chata Comments mod dec all motions with c/o pain Knee Goniometric Range of Motion Knee chata Knee ROM WFL No Comments painful especially in weight- bearing Knee ROM Limitations Knee ROM Limitations Soft Tissue Tightness,Swelling Ankle and Foot Goniometric Range of Motion Ankle and Foot chata Ankle/Foot ROM WFL No Comments mod dec all motions Ankle and Foot ROM Limitations ROM Limitations Soft Tissue Tightness,Swelling PT-OP-N Lymphedema Start: 02/24/24 13:04 Freq: Status: Active Protocol: Document 02/24/24 14:28 [facility] (Rec: 02/24/24 13:18 [facility] [id number]) Lymphedema Measurements Lower Extremity Circumference Measurements Left Affected MT Heads 25.3 cm Mid-foot 25 cm Medial Malleolus 28.2 cm 10 cm From Medial Malleolus 31.8 cm 20 cm From Medial Malleolus 43.5 cm 30 cm From Medial Malleolus 53.7 cm 40 cm From Medial Malleolus 65.2 cm 50 cm From Medial Malleolus 76.3 cm 60 cm From Medial Malleolus 83 cm Knee Joint 52.5 cm - distances from anterior ankle crease medial mall measurement smallest ankle Right Affected MT Heads 24.5 cm Mid-foot 25.3 cm Medial Malleolus 27.8 cm 10 cm From Medial Malleolus 38.8 cm 20 cm From Medial Malleolus 46.8 cm 30 cm From Medial Malleolus 50.8 cm 40 cm From Medial Malleolus 60.3 cm 50 cm From Medial Malleolus 71.1 cm 60 cm From Medial Malleolus 82.5 cm Knee Joint 58.7 cm - distances from anterior ankle crease PT-OP-Q Treatments Start: 02/24/24 13:04 Freq: Status: Active Protocol: Document 02/24/24 14:28 [facility] (Rec: 02/24/24 13:18 [facility] [id number]) Lymphedema Treatment Manual Lymphatic Drainage Location chata LE's Duration 12 Comments shortened version for patient instruction Lymphedema Wrapping Materials Coban2 system applied left LE toes to knee, Juzo Ready Wrap applied right foot and lower leg Patient Education Lymphedema Pathology instructed Lymphedema Prevention instructed Lymphedema Precautions instructed Compression Garments discussed options Self Manual Lymphatic Drainage instructed Sequential Lymphedema Exercises instructed Other written HO for above topics issued. Use of lean facilitator to instrsuct in lymphatic system anatomy and function PT-OP-T Assessment and Plan Start: 02/24/24 13:04 Freq: Status: Active Protocol: Document 02/24/24 14:28 [facility] (Rec: 02/24/24 13:18 [facility] [id number]) Physical Therapy Assessment Rehab Potential Rehabilitation Potential Good Evaluation Complexity Number of Personal Factors/Comorbidities 1-2 Number of Body Systems Impaired 3 Clinical Presentation at Evaluation Unstable Impairments Impairments Activity Tolerance,Edema, Functional Mobility,Integument ,Soft Tissue Mobility Other Concerns Barriers to Rehabilitation obesity, DM,cardiac, HTN, ARAMBULA Goals 2 Impairment lymphedema life impact scale 76% Short Term Goal (STG) decrease score to no greater than 60% STG Duration 03/31/24 [facility] Goal (LTG) decrease score to no greater than 35% as measure of improved function and quality of life related to his lymphedema LTG Duration 05/26/24 1 Impairment lymphedema chata LE's Short Term Goal (STG) Patient will be instructed in all aspects of lymphedema self -care to include skin care, elevation, self-massage, self- bandaging/compression options, and lymphedema exercises. STG Duration 03/31/24 Mixer Diamond Powder Goal (LTG) Decrease patient?s lymphedema to a stable level (no increase or decrease greater than 1 cm over the course of 1 week), patient to be independent with all aspects of self-care for lymphedema, and will obtain appropriate compression garment for lymphedema management in the home. Consider sequential pneumatic pump. LTG Duration 05/26/24 Assessment Summary Assessment Patient presents to PT with function-limiting lymphedema bilateral LE's with multiple medical issues as contributing factors and comorbidities. He is currently being seen in wound care for wound left LE and has had Juzo Ready Wrap velcro compression wraps for chata feet and calves ordered for him and he is using consistently. He has had significant reduction in his lymphedema but has potential for further reduction in size before being fit with new compression garments with PT recommendation for more proximal compression as well; currently the compression wraps push the fluid out of lower legs into knees. Recommend knee and thigh velcro wraps, or felicita length compression tights for more proximal compression in combination with compression wraps lower legs and feet. Other option discussed today is thigh high or compression tights with likely need for custom garments, will discuss further next sessions. Current velcro wraps for feet have become too small for patient, so needs new size. POC was discussed with patient and he was in agreement. Physical Therapy Plan Frequency and Duration Frequency of Treatment 20 visits Duration of treatment (weeks) 12 Plan of Care Start Date 02/24/24 Plan of Care End Date 04/25/24 Therapeutic Interventions Therapeutic Interventions Home Exercise Program, Lymphedema Management,Manual Therapy,Patient/Caregiver Education,Self-Care/Home Management,Soft Tissue Mobilization,Taping, Therapeutic Activities, Therapeutic Exercises Modalities Vasopneumatic Devices Next Visit Focus/Plan Next Note Type Treatment Note Next Visit Plan Complete decongestive therapy for lymphedema management to include elevation, skin care, manual lymphatic drainage, exercise, and compression. Patient education for self care in all areas.
--- NOTE | 2024-02-24 16:42 | PT.OPPOC ---
Physical, Occupational & Speech Therapy At [facility] Current Diagnoses Lymphedema, not elsewhere classified (02/24/24) Visit Care Team Role Provider Type Efrain Duggan MD Family Provider Physician Primary Care Provider Specialty: Family Practice Address: [address] [place] [address], [address], [place], [address] Email: [email or web address] Alexander Kohler MD Attending Provider Physician Referring Provider Specialty: Wound Care Address: [address] [place] [address], [id number] Email: [email or web address] Plan Of Care PT-OP-B Current Condition Start: 02/24/24 13:04 Freq: Status: Active Protocol: Document 02/24/24 14:28 [facility] (Rec: 02/24/24 13:18 [facility] [id number]) Current Condition History of Current Condition Onset Date 2019 Current Complaints swelling bilateral LE's History of Current Condition Gradual onset and worsening swelling chata LE's especially since 2019. Diagnosed venous insufficiency and lymphedema Has worn compression stockings 25-30 for yrs due to father having bad legs and wanting to try to prevent same issue. Hasn't been seen in PT for CDT. Due to persistent and worsening edema chata LE's was referred to wound care; has been seen in wound care since 01/09/24. Doppler ordered, was negative. Boils developed on both LE's, persistent unhealed small wound remaining on left lower leg. Wound care ordered vecro compression wraps for feet and calves , reports about 40 cm circumference decrease since starting wound care. Reports severe ankylosing spondylosis, back pain, nerve damage left LE. Unable to exercise due to joint pain in all LE joints and low back. Has Nu-Step at home, min resistance tolerated but can ride for up to 1 hour . Doesn't tolerate going for walks due to joint pain. Requires use of FWW for ambulation. States he was started on an antibiotic last week by wound care. States velcro compression wraps seem too big for feet now. Interested if other option for compression, feels like compression wraps help calves but push fluid to knees and it doesn't go any further. Is interested in considering pneumatic pump for home use and receptive to discussion options for compression garments. Prior Treatments and Tests doppler last month negative for clots Treatment Goals Patient/Caregiver Goals decrease edema and be able to self manage lymphedema at home . Prior Functional Status Baseline Function- ADL's Independent Baseline Function- Mobility Independent Baseline Function- Gait indep Baseline Function- Work/School retired Baseline Function- Recreation/Hobbies able to do projects around the house Current Functional Impairments (Reported) Functional Limitations- ADL's painful Functional Limitations- Mobility/Gait painful, requires use of FWW Functional Limitations- Work/School retired Functional Limitations- Recreation/ unable to do house projects as Hobbies previously Personal Factors Other Personal Factors That May Effect obesity 388 lbs, DM, HTN Therapy/Recovery PT-OP-T Assessment and Plan Start: 02/24/24 13:04 Freq: Status: Active Protocol: Document 02/24/24 14:28 [facility] (Rec: 02/24/24 13:18 [facility] [id number]) Physical Therapy Assessment Rehab Potential Rehabilitation Potential Good Evaluation Complexity Number of Personal Factors/Comorbidities 1-2 Number of Body Systems Impaired 3 Clinical Presentation at Evaluation Unstable Impairments Impairments Activity Tolerance,Edema, Functional Mobility,Integument ,Soft Tissue Mobility Other Concerns Barriers to Rehabilitation obesity, DM,cardiac, HTN, ARAMBULA Goals 2 Impairment lymphedema life impact scale 76% Short Term Goal (STG) decrease score to no greater than 60% STG Duration 03/31/24 Custodial Goal (LTG) decrease score to no greater than 35% as measure of improved function and quality of life related to his lymphedema LTG Duration 05/26/24 1 Impairment lymphedema chata LE's Short Term Goal (STG) Patient will be instructed in all aspects of lymphedema self -care to include skin care, elevation, self-massage, self- bandaging/compression options, and lymphedema exercises. STG Duration 03/31/24 Custodial Goal (LTG) Decrease patient?s lymphedema to a stable level (no increase or decrease greater than 1 cm over the course of 1 week), patient to be independent with all aspects of self-care for lymphedema, and will obtain appropriate compression garment for lymphedema management in the home. Consider sequential pneumatic pump. LTG Duration 05/26/24 Assessment Summary Assessment Patient presents to PT with function-limiting lymphedema bilateral LE's with multiple medical issues as contributing factors and comorbidities. He is currently being seen in wound care for wound left LE and has had Juzo Ready Wrap velcro compression wraps for chata feet and calves ordered for him and he is using consistently. He has had significant reduction in his lymphedema but has potential for further reduction in size before being fit with new compression garments with PT recommendation for more proximal compression as well; currently the compression wraps push the fluid out of lower legs into knees. Recommend knee and thigh velcro wraps, or felicita length compression tights for more proximal compression in combination with compression wraps lower legs and feet. Other option discussed today is thigh high or compression tights with likely need for custom garments, will discuss further next sessions. Current velcro wraps for feet have become too small for patient, so needs new size. POC was discussed with patient and he was in agreement. Physical Therapy Plan Frequency and Duration Frequency of Treatment 20 visits Duration of treatment (weeks) 12 Plan of Care Start Date 02/24/24 Plan of Care End Date 04/25/24 Therapeutic Interventions Therapeutic Interventions Home Exercise Program, Lymphedema Management,Manual Therapy,Patient/Caregiver Education,Self-Care/Home Management,Soft Tissue Mobilization,Taping, Therapeutic Activities, Therapeutic Exercises Modalities Vasopneumatic Devices Next Visit Focus/Plan Next Note Type Treatment Note Next Visit Plan Complete decongestive therapy for lymphedema management to include elevation, skin care, manual lymphatic drainage, exercise, and compression. Patient education for self care in all areas. Plan of Care Dates Plan of Care Start Date 02/24/24 Plan of Care End Date 04/25/24 Electronically Signed by: Arianna Swann, PT 02/25/24 [id number] If you are in agreement with this Plan of Care, please return a signed and dated copy. I have reviewed this Plan of Care and certify that the skilled therapy services above are required to meet the patient?s needs. Physician Signature Date Printed Name and Credentials Clinical Instructor Signature Printed Name and Credentials
--- NOTE | 2024-02-26 16:25 | PT.OTN ---
Current Diagnoses Lymphedema, not elsewhere classified (02/26/24) Physical Therapy Treatment Note PT-OP-A Visit Information Start: 02/24/24 13:04 Freq: Status: Active Protocol: Document 02/26/24 14:30 [facility] (Rec: 02/26/24 14:44 [facility] [id number]) Out-Patient Physical Therapy Visit Information Visit Information Visit Type Treatment Note Visit Start Time 14:30 Visit Stop Time 16:00 Visit Number 2 Precautions Precautions DM, neuropathy, venous insufficiency, HTN, obesity, ARAMBULA. Patient is 5'8, 397 lbs . PT-OP-B Current Condition Start: 02/24/24 13:04 Freq: Status: Active Protocol: Document 02/26/24 14:30 [facility] (Rec: 02/26/24 14:44 [facility] [id number]) Current Condition History of Current Condition Onset Date 2019 Current Complaints swelling bilateral LE's History of Current Condition Gradual onset and worsening swelling chata LE's especially since 2019. Diagnosed venous insufficiency and lymphedema Has worn compression stockings 25-30 for yrs due to father having bad legs and wanting to try to prevent same issue. Hasn't been seen in PT for CDT. Due to persistent and worsening edema chata LE's was referred to wound care; has been seen in wound care since 01/09/24. Doppler ordered, was negative. Boils developed on both LE's, persistent unhealed small wound remaining on left lower leg. Wound care ordered vecro compression wraps for feet and calves , reports about 40 cm circumference decrease since starting wound care. Reports severe ankylosing spondylosis, back pain, nerve damage left LE. Unable to exercise due to joint pain in all LE joints and low back. Has Nu-Step at home, min resistance tolerated but can ride for up to 1 hour . Doesn't tolerate going for walks due to joint pain. Requires use of FWW for ambulation. States he was started on an antibiotic last week by wound care. States velcro compression wraps seem too big for feet now. Interested if other option for compression, feels like compression wraps help calves but push fluid to knees and it doesn't go any further. Is interested in considering pneumatic pump for home use and receptive to discussion options for compression garments. Prior Treatments and Tests doppler last month negative for clots PT-OP-C Subjective Start: 02/24/24 13:04 Freq: Status: Active Protocol: Document 02/26/24 14:30 [facility] (Rec: 02/26/24 14:44 [facility] [id number]) OP-PT Subjective Patient Comments Patient Comments Saw wound care an hour ago, reports wound a little bigger. Still on antibiotic PT-OP-F Manual Assessment Start: 02/24/24 13:04 Freq: Status: Active Protocol: Document 02/24/24 14:28 [facility] (Rec: 02/24/24 13:18 [facility] [id number]) Manual Assessments Soft Tissue Assessment Soft Tissue Mobility Assessment mild reddening chata lower legs knees to ankles, min warmth. No hemosiderin staining, mild fibrosis lower legs, no elephantiasis. PT-OP-G Mobility & Gait Start: 02/24/24 13:04 Freq: Status: Active Protocol: Document 02/24/24 14:28 [facility] (Rec: 02/24/24 13:18 [facility] [id number]) OP Mobility Evaluation Bed Mobility Rolling indep,labored Supine to and from Sit indep, labored OP Gait Assessment Gait Gait Assistance Required: Independent Assistive Devices Assistive Device Front Wheeled Walker Gait Deviations General Gait Pattern Decreased Stride Length, Decreased Feet Clearance,Wide Based Gait Factors Limiting Gait Function Factors Limiting Gait Function Pain Comments Gait Comments weight of legs with lymphedema PT-OP-H Neuro Start: 02/24/24 13:04 Freq: Status: Active Protocol: Document 02/24/24 14:28 [facility] (Rec: 02/24/24 13:18 [facility] [id number]) Sensation Evaluation Gross Sensation Gross Sensation Left LE Impaired,Right LE Impaired Location Details Right Leg Light Touch Impaired Left Leg Light Touch Impaired Vital Signs Blood Pressure Sitting Blood Pressure (90/60-120/80 mmHg) 132/80 H Blood Pressure Source Manual Cuff PT-OP-J Posture/Palpation/Skin Start: 02/24/24 13:04 Freq: Status: Active Protocol: Document 02/24/24 14:28 [facility] (Rec: 02/24/24 13:18 [facility] [id number]) Palpation Assessment Location chata LE's Palpation Findings Edema,Soft Tissue Tightness Palpation Details knees, lower legs, feet Skin Assessment Edema Assessment chata LE's Edema Type Non-Pitting Edema Degree 4+ Edema Appearance Puffy,Taut Subjective Edema Description Tightness PT-OP-K Range of Motion Start: 02/24/24 13:04 Freq: Status: Active Protocol: Document 02/24/24 14:28 [facility] (Rec: 02/24/24 13:18 [facility] [id number]) Hip Goniometric Range of Motion Hip chata Comments mod dec all motions with c/o pain Knee Goniometric Range of Motion Knee chata Knee ROM WFL No Comments painful especially in weight- bearing Knee ROM Limitations Knee ROM Limitations Soft Tissue Tightness,Swelling Ankle and Foot Goniometric Range of Motion Ankle and Foot chata Ankle/Foot ROM WFL No Comments mod dec all motions Ankle and Foot ROM Limitations ROM Limitations Soft Tissue Tightness,Swelling PT-OP-N Lymphedema Start: 02/24/24 13:04 Freq: Status: Active Protocol: Document 02/26/24 14:30 [facility] (Rec: 02/26/24 16:25 [facility] [id number]) Lymphedema Measurements Lower Extremity Circumference Measurements Left Affected MT Heads 24.9 cm Mid-foot 25.3 cm Medial Malleolus 28.8 cm 10 cm From Medial Malleolus 32 cm 20 cm From Medial Malleolus 44.4 cm 30 cm From Medial Malleolus 49.5 cm 40 cm From Medial Malleolus 53.8 cm 50 cm From Medial Malleolus 65 cm 60 cm From Medial Malleolus 78 cm Knee Joint 52 cm Right Affected - measurements taken but lost due to computer issue PT-OP-Q Treatments Start: 02/24/24 13:04 Freq: Status: Active Protocol: Document 02/26/24 14:30 [facility] (Rec: 02/26/24 16:25 [facility] [id number]) Lymphedema Treatment Manual Lymphatic Drainage Location chata LE's Duration 35 Comments with patient and education, also shown [facility] PT video as part of instruction during MLD Lymphedema Wrapping Materials Coban2 system applied left LE toes to knee, Juzo Ready Wrap applied right foot and calf, knee, and thigh (knee and thigh loaner garments) right LE Juzo Ready Wrap foot and lower leg plus loaner knee and thigh wraps XL Sequential Lymphedema Exercises Location reviewed Compression Garment Assessment Compression Garment Assessment Details discussed options and issued loaners as above Patient Education Lymphedema Pathology review Lymphedema Prevention reviewed Lymphedema Precautions reviewed Compression Garments discussed and issued loaner garments as above Self Manual Lymphatic Drainage reviewed, instructed Sequential Lymphedema Exercises reviewed PT-OP-T Assessment and Plan Start: 02/24/24 13:04 Freq: Status: Active Protocol: Document 02/26/24 14:30 [facility] (Rec: 02/26/24 14:44 [facility] [id number]) Physical Therapy Assessment Impairments Impairments Activity Tolerance,Edema, Functional Mobility,Integument ,Soft Tissue Mobility Other Concerns Barriers to Rehabilitation obesity, DM,cardiac, HTN, ARAMBULA Goals 3 Impairment Pelvic floor weakness with decreased endurance of the pelvic floor 2 Impairment lymphedema life impact scale 76% Impairment c/o urinary frequency and urgency every 45 min during the day and 3 times at night Short Term Goal (STG) decrease score to no greater than 60% STG Duration 03/31/24 [facility] Goal (LTG) decrease score to no greater than 35% as measure of improved function and quality of life related to his lymphedema LTG Duration 05/26/24 1 Impairment lymphedema chata LE's Impairment pt lacks a HEP for pelvic floor strengthening Short Term Goal (STG) Patient will be instructed in all aspects of lymphedema self -care to include skin care, elevation, self-massage, self- bandaging/compression options, and lymphedema exercises. STG Duration 03/31/24 [place] Goal (LTG) Decrease patient?s lymphedema to a stable level (no increase or decrease greater than 1 cm over the course of 1 week), patient to be independent with all aspects of self-care for lymphedema, and will obtain appropriate compression garment for lymphedema management in the home. Consider sequential pneumatic pump. LTG Duration 05/26/24 Assessment Summary Assessment Patient and demonstrated good understanding of self MLD , skin care, compression options, exercise after education today. Issued loaner XL Juzo Compression Wraps for trial, and pt educated in donning and adjustments. ADvised not to leave compression wraps on longer than 24 hours, need to check skin for breakdown, bathe, do skin care. Trial channel foam under Juzo wrap on right LE. Physical Therapy Plan Frequency and Duration Frequency of Treatment 20 visits Duration of treatment (weeks) 12 Plan of Care Start Date 02/24/24 Plan of Care End Date 04/25/24 Therapeutic Interventions Therapeutic Interventions Home Exercise Program, Lymphedema Management,Manual Therapy,Patient/Caregiver Education,Self-Care/Home Management,Soft Tissue Mobilization,Taping, Therapeutic Activities, Therapeutic Exercises Modalities Vasopneumatic Devices Next Visit Focus/Plan Next Note Type Treatment Note Next Visit Plan Complete decongestive therapy for lymphedema management to include elevation, skin care, manual lymphatic drainage, exercise, and compression. Patient education for self care in all areas.
--- NOTE | 2024-03-02 14:53 | PT.OTN ---
Current Diagnoses Lymphedema, not elsewhere classified (03/02/24) Physical Therapy Treatment Note PT-OP-A Visit Information Start: 02/24/24 13:04 Freq: Status: Active Protocol: Document 03/02/24 13:01 [facility] (Rec: 03/02/24 13:16 [facility] [id number]) Out-Patient Physical Therapy Visit Information Visit Information Visit Type Treatment Note Visit Start Time 13:00 Visit Stop Time 14:30 Visit Number 3 Evaluation Information Evaluation Date 01/31/24 Precautions Precautions DM, neuropathy, venous insufficiency, HTN, obesity, ARAMBULA. Patient is 5'8, 397 lbs . PT-OP-B Current Condition Start: 02/24/24 13:04 Freq: Status: Active Protocol: Document 03/02/24 13:01 [facility] (Rec: 03/02/24 13:16 [facility] [id number]) Current Condition History of Current Condition Onset Date 2019 Current Complaints swelling bilateral LE's History of Current Condition Gradual onset and worsening swelling chata LE's especially since 2019. Diagnosed venous insufficiency and lymphedema Has worn compression stockings 25-30 for yrs due to father having bad legs and wanting to try to prevent same issue. Hasn't been seen in PT for CDT. Due to persistent and worsening edema chata LE's was referred to wound care; has been seen in wound care since 01/09/24. Doppler ordered, was negative. Boils developed on both LE's, persistent unhealed small wound remaining on left lower leg. Wound care ordered vecro compression wraps for feet and calves , reports about 40 cm circumference decrease since starting wound care. Reports severe ankylosing spondylosis, back pain, nerve damage left LE. Unable to exercise due to joint pain in all LE joints and low back. Has Nu-Step at home, min resistance tolerated but can ride for up to 1 hour . Doesn't tolerate going for walks due to joint pain. Requires use of FWW for ambulation. States he was started on an antibiotic last week by wound care. States velcro compression wraps seem too big for feet now. Interested if other option for compression, feels like compression wraps help calves but push fluid to knees and it doesn't go any further. Is interested in considering pneumatic pump for home use and receptive to discussion options for compression garments. Prior Treatments and Tests doppler last month negative for clots Personal Factors Other Personal Factors That May Effect obesity 388 lbs, DM, HTN Therapy/Recovery PT-OP-C Subjective Start: 02/24/24 13:04 Freq: Status: Active Protocol: Document 03/02/24 13:01 [facility] (Rec: 03/02/24 14:43 [facility] [id number]) OP-PT Subjective Patient Comments Patient Comments REports the compression wraps issued for trial slid down, he tried to tighten but they still slid down. Has been trying the exercises and massage as instructed. Hasn't looked online much regarding compression garment options or YouTube videos recommended. PT-OP-F Manual Assessment Start: 02/24/24 13:04 Freq: Status: Active Protocol: Document 02/24/24 14:28 [facility] (Rec: 02/24/24 13:18 [facility] [id number]) Manual Assessments Soft Tissue Assessment Soft Tissue Mobility Assessment mild reddening chata lower legs knees to ankles, min warmth. No hemosiderin staining, mild fibrosis lower legs, no elephantiasis. PT-OP-G Mobility & Gait Start: 02/24/24 13:04 Freq: Status: Active Protocol: Document 02/24/24 14:28 [facility] (Rec: 02/24/24 13:18 [facility] [id number]) OP Mobility Evaluation Bed Mobility Rolling indep,labored Supine to and from Sit indep, labored OP Gait Assessment Gait Gait Assistance Required: Independent Assistive Devices Assistive Device Front Wheeled Walker Gait Deviations General Gait Pattern Decreased Stride Length, Decreased Feet Clearance,Wide Based Gait Factors Limiting Gait Function Factors Limiting Gait Function Pain Comments Gait Comments weight of legs with lymphedema PT-OP-H Neuro Start: 02/24/24 13:04 Freq: Status: Active Protocol: Document 02/24/24 14:28 [facility] (Rec: 02/24/24 13:18 [facility] [id number]) Sensation Evaluation Gross Sensation Gross Sensation Left LE Impaired,Right LE Impaired Location Details Right Leg Light Touch Impaired Left Leg Light Touch Impaired Vital Signs Blood Pressure Sitting Blood Pressure (90/60-120/80 mmHg) 132/80 H Blood Pressure Source Manual Cuff PT-OP-J Posture/Palpation/Skin Start: 02/24/24 13:04 Freq: Status: Active Protocol: Document 02/24/24 14:28 [facility] (Rec: 02/24/24 13:18 [facility] [id number]) Palpation Assessment Location chata LE's Palpation Findings Edema,Soft Tissue Tightness Palpation Details knees, lower legs, feet Skin Assessment Edema Assessment chata LE's Edema Type Non-Pitting Edema Degree 4+ Edema Appearance Puffy,Taut Subjective Edema Description Tightness PT-OP-K Range of Motion Start: 02/24/24 13:04 Freq: Status: Active Protocol: Document 02/24/24 14:28 [facility] (Rec: 02/24/24 13:18 [facility] [id number]) Hip Goniometric Range of Motion Hip chata Comments mod dec all motions with c/o pain Knee Goniometric Range of Motion Knee chata Knee ROM WFL No Comments painful especially in weight- bearing Knee ROM Limitations Knee ROM Limitations Soft Tissue Tightness,Swelling Ankle and Foot Goniometric Range of Motion Ankle and Foot chata Ankle/Foot ROM WFL No Comments mod dec all motions Ankle and Foot ROM Limitations ROM Limitations Soft Tissue Tightness,Swelling PT-OP-N Lymphedema Start: 02/24/24 13:04 Freq: Status: Active Protocol: Document 03/02/24 13:01 [facility] (Rec: 03/02/24 13:39 [facility] [id number]) Lymphedema Measurements Lower Extremity Circumference Measurements Left Affected MT Heads 24.7 cm Mid-foot 25.3 cm Medial Malleolus 29 cm 10 cm From Medial Malleolus 32.2 cm 20 cm From Medial Malleolus 44.3 cm 30 cm From Medial Malleolus 50.3 cm 40 cm From Medial Malleolus 52 cm 50 cm From Medial Malleolus 62.8 cm 60 cm From Medial Malleolus 74.8 cm Knee Joint 52 cm - distances from anterior ankle crease medial mall measurement smallest ankle Right Affected MT Heads 25.3 cm Mid-foot 25.2 cm Medial Malleolus 28.4 cm 10 cm From Medial Malleolus 38.5 cm 20 cm From Medial Malleolus 44.8 cm 30 cm From Medial Malleolus 49.8 cm 40 cm From Medial Malleolus 61.5 cm 50 cm From Medial Malleolus 76 cm 60 cm From Medial Malleolus 83.7 cm Knee Joint 61.5 cm - distances from anterior ankle crease - after 30 min sequential pneumatic pump: 10 cm: 38, 20 cm 45.3, 30: 48.8, 50: 74 PT-OP-Q Treatments Start: 02/24/24 13:04 Freq: Status: Active Protocol: Document 03/02/24 13:01 [facility] (Rec: 03/02/24 13:16 [facility] [id number]) Self-Care/Home Management Treatment Education Patient Education Home Exercise Program Other Education \ Lymphedema Treatment Manual Lymphatic Drainage Location chata LE's Duration 35 Comments with patienteducation/ review Lymphedema Wrapping Materials Coban2 system applied left LE toes to knee, and loaner Juzo Ready wrap knee componenent with extra fur trimmer strap ant to help with fit. right LE Juzo Ready Wrap foot and lower leg plus loaner knee also with fur trimmer strap No thigh component of Ready Wrap today, trial knees with fur trimmer straps. May still need to consider bandagin. Sequential Lymphedema Exercises Location reviewed Compression Garment Assessment Compression Garment Assessment Details discussed options and issued loaners as above Patient Education Compression Garments further discussion, PT to request prescription for referral to [facility] Manual Lymphatic Drainage reviewed, Sequential Lymphedema Exercises reviewed using handout, patient performed with PT guidance PT-OP-R Modalities Start: 02/24/24 13:04 Freq: Status: Active Protocol: Document 03/02/24 13:01 [facility] (Rec: 03/02/24 14:43 [facility] [id number]) Compression Pump Treatment Treatment Location Right Leg Pressure Amount (mmHg) (mmHG) 45 Inflation Time (Seconds) 30 Deflation Time (Seconds) 10 Treatment Tolerance Good Treatment Comments x30 min PT-OP-T Assessment and Plan Start: 02/24/24 13:04 Freq: Status: Active Protocol: Document 03/02/24 13:01 [facility] (Rec: 03/02/24 13:16 [facility] [id number]) Physical Therapy Assessment Impairments Impairments Activity Tolerance,Edema, Functional Mobility,Integument ,Soft Tissue Mobility Other Concerns Barriers to Rehabilitation obesity, DM,cardiac, HTN, ARAMBULA Goals 2 Impairment lymphedema life impact scale 76% Impairment c/o urinary frequency and urgency every 45 min during the day and 3 times at night Short Term Goal (STG) decrease score to no greater than 60% STG Duration 03/31/24 [facility] Goal (LTG) decrease score to no greater than 35% as measure of improved function and quality of life related to his lymphedema LTG Duration 05/26/24 1 Impairment lymphedema chata LE's Impairment pt lacks a HEP for pelvic floor strengthening Short Term Goal (STG) Patient will be instructed in all aspects of lymphedema self -care to include skin care, elevation, self-massage, self- bandaging/compression options, and lymphedema exercises. STG Duration 03/31/24 Longterm Goal (LTG) Decrease patient?s lymphedema to a stable level (no increase or decrease greater than 1 cm over the course of 1 week), patient to be independent with all aspects of self-care for lymphedema, and will obtain appropriate compression garment for lymphedema management in the home. Consider sequential pneumatic pump. LTG Duration 05/26/24 Assessment Summary Assessment Reports left leg in addition to usual sting had ache and throbbing in his leg. Doesn't see wound care until ; no signs or symptoms of infection. Reports the compression wraps for knees and thighs didn't stay up well , slid down and tried to tighten but they didn't work well. Today tried fur trimmer straps with knee components, may need to look at a different brand/type wraps or consider Milena length compression garments plus lower leg and foot wraps or custom compression garments. Physical Therapy Plan Frequency and Duration Frequency of Treatment 20 visits Duration of treatment (weeks) 12 Plan of Care Start Date 02/24/24 Plan of Care End Date 04/25/24 Therapeutic Interventions Therapeutic Interventions Home Exercise Program, Lymphedema Management,Manual Therapy,Patient/Caregiver Education,Self-Care/Home Management,Soft Tissue Mobilization,Taping, Therapeutic Activities, Therapeutic Exercises Modalities Vasopneumatic Devices Next Visit Focus/Plan Next Note Type Treatment Note Next Visit Plan Continue omplete decongestive therapy for lymphedema management to include elevation, skin care, manual lymphatic drainage, exercise, and compression. Patient education for self care in all areas. Request referral to [facility] for garment consult from Dr. Kohler.
--- NOTE | 2024-03-03 16:55 | PT.OTN ---
Current Diagnoses Lymphedema, not elsewhere classified (03/03/24) Physical Therapy Treatment Note PT-OP-A Visit Information Start: 02/24/24 13:04 Freq: Status: Active Protocol: Document 03/03/24 13:46 [facility] (Rec: 03/03/24 15:18 [facility] [id number]) Out-Patient Physical Therapy Visit Information Visit Information Visit Type Treatment Note Visit Start Time 13:47 Visit Stop Time 15:15 Visit Number 4 Evaluation Information Evaluation Date 01/31/24 Precautions Precautions DM, neuropathy, venous insufficiency, HTN, obesity, ARAMBULA. Patient is 5'8, 397 lbs . PT-OP-B Current Condition Start: 02/24/24 13:04 Freq: Status: Active Protocol: Document 03/03/24 13:46 [facility] (Rec: 03/03/24 15:18 [facility] [id number]) Current Condition History of Current Condition Onset Date 2019 Current Complaints swelling bilateral LE's History of Current Condition Gradual onset and worsening swelling chata LE's especially since 2019. Diagnosed venous insufficiency and lymphedema Has worn compression stockings 25-30 for yrs due to father having bad legs and wanting to try to prevent same issue. Hasn't been seen in PT for CDT. Due to persistent and worsening edema chata LE's was referred to wound care; has been seen in wound care since 01/09/24. Doppler ordered, was negative. Boils developed on both LE's, persistent unhealed small wound remaining on left lower leg. Wound care ordered vecro compression wraps for feet and calves , reports about 40 cm circumference decrease since starting wound care. Reports severe ankylosing spondylosis, back pain, nerve damage left LE. Unable to exercise due to joint pain in all LE joints and low back. Has Nu-Step at home, min resistance tolerated but can ride for up to 1 hour . Doesn't tolerate going for walks due to joint pain. Requires use of FWW for ambulation. States he was started on an antibiotic last week by wound care. States velcro compression wraps seem too big for feet now. Interested if other option for compression, feels like compression wraps help calves but push fluid to knees and it doesn't go any further. Is interested in considering pneumatic pump for home use and receptive to discussion options for compression garments. Prior Treatments and Tests doppler last month negative for clots Personal Factors Other Personal Factors That May Effect obesity 388 lbs, DM, HTN Therapy/Recovery PT-OP-C Subjective Start: 02/24/24 13:04 Freq: Status: Active Protocol: Document 03/03/24 13:46 [facility] (Rec: 03/03/24 15:18 [facility] [id number]) OP-PT Subjective Patient Comments Patient Comments knee wraps fell down last night just like previously, so far nothing has worked for knees or thighs for compression. Had to adjust foot compression wrap right foot during the night as was hurting. PT-OP-F Manual Assessment Start: 02/24/24 13:04 Freq: Status: Active Protocol: Document 02/24/24 14:28 [facility] (Rec: 02/24/24 13:18 [facility] [id number]) Manual Assessments Soft Tissue Assessment Soft Tissue Mobility Assessment mild reddening chata lower legs knees to ankles, min warmth. No hemosiderin staining, mild fibrosis lower legs, no elephantiasis. PT-OP-G Mobility & Gait Start: 02/24/24 13:04 Freq: Status: Active Protocol: Document 02/24/24 14:28 [facility] (Rec: 02/24/24 13:18 [facility] [id number]) OP Mobility Evaluation Bed Mobility Rolling indep,labored Supine to and from Sit indep, labored OP Gait Assessment Gait Gait Assistance Required: Independent Assistive Devices Assistive Device Front Wheeled Walker Gait Deviations General Gait Pattern Decreased Stride Length, Decreased Feet Clearance,Wide Based Gait Factors Limiting Gait Function Factors Limiting Gait Function Pain Comments Gait Comments weight of legs with lymphedema PT-OP-H Neuro Start: 02/24/24 13:04 Freq: Status: Active Protocol: Document 02/24/24 14:28 [facility] (Rec: 02/24/24 13:18 [facility] [id number]) Sensation Evaluation Gross Sensation Gross Sensation Left LE Impaired,Right LE Impaired Location Details Right Leg Light Touch Impaired Left Leg Light Touch Impaired Vital Signs Blood Pressure Sitting Blood Pressure (90/60-120/80 mmHg) 132/80 H Blood Pressure Source Manual Cuff PT-OP-J Posture/Palpation/Skin Start: 02/24/24 13:04 Freq: Status: Active Protocol: Document 02/24/24 14:28 [facility] (Rec: 02/24/24 13:18 [facility] [id number]) Palpation Assessment Location chata LE's Palpation Findings Edema,Soft Tissue Tightness Palpation Details knees, lower legs, feet Skin Assessment Edema Assessment chata LE's Edema Type Non-Pitting Edema Degree 4+ Edema Appearance Puffy,Taut Subjective Edema Description Tightness PT-OP-K Range of Motion Start: 02/24/24 13:04 Freq: Status: Active Protocol: Document 02/24/24 14:28 [facility] (Rec: 02/24/24 13:18 [facility] [id number]) Hip Goniometric Range of Motion Hip chata Comments mod dec all motions with c/o pain Knee Goniometric Range of Motion Knee chata Knee ROM WFL No Comments painful especially in weight- bearing Knee ROM Limitations Knee ROM Limitations Soft Tissue Tightness,Swelling Ankle and Foot Goniometric Range of Motion Ankle and Foot chata Ankle/Foot ROM WFL No Comments mod dec all motions Ankle and Foot ROM Limitations ROM Limitations Soft Tissue Tightness,Swelling PT-OP-N Lymphedema Start: 02/24/24 13:04 Freq: Status: Active Protocol: Document 03/03/24 13:46 [facility] (Rec: 03/03/24 15:18 [facility] [id number]) Lymphedema Measurements Lower Extremity Circumference Measurements Left Affected MT Heads 25 cm Mid-foot 25.2 cm Medial Malleolus 29 cm 10 cm From Medial Malleolus 30.8 cm 20 cm From Medial Malleolus 44.2 cm 30 cm From Medial Malleolus 47.2 cm 40 cm From Medial Malleolus 51.8 cm 50 cm From Medial Malleolus 66.7 cm 60 cm From Medial Malleolus 80 cm Knee Joint 51.8 cm - distances from anterior ankle crease medial mall measurement smallest ankle Right Affected MT Heads 25.4 cm Mid-foot 24.7 cm Medial Malleolus 28.3 cm 10 cm From Medial Malleolus 38.7 cm 20 cm From Medial Malleolus 46 cm 30 cm From Medial Malleolus 49.3 cm 40 cm From Medial Malleolus 58.3 cm 50 cm From Medial Malleolus 71.4 cm 60 cm From Medial Malleolus 82.5 cm Knee Joint 58.5 cm - distances from anterior ankle crease - after 30 min sequential pneumatic pump: ankle 27.9, 30 : 48.3, 40:59, 50: 73.4 PT-OP-Q Treatments Start: 02/24/24 13:04 Freq: Status: Active Protocol: Document 03/03/24 13:46 [facility] (Rec: 03/03/24 15:21 [facility] [id number]) Lymphedema Treatment Manual Lymphatic Drainage Location chata LE's Duration 40 Comments sequential pneumatic pump opposite side of MLD Lymphedema Wrapping Body Location chata LE's Materials R: Tricofix size G, Artiflex, Comprilan (6, 8 x 2, 10x 2, 12x1) toes to upper thigh L: Coban2 system toes to knee Sequential Lymphedema Exercises Location trunk rotation, chata LE's Compression Garment Assessment Compression Garment Assessment Details not working as effectively as Coban system. Decided trial compression bandaging trial Patient Education Compression Garments further discussion, PT to request prescription for referral to [facility] Manual Lymphatic Drainage continue education technique during treatment Sequential Lymphedema Exercises performed with PT guidance; modifed with isometric LE plus trunk rotation, PT-OP-R Modalities Start: 02/24/24 13:04 Freq: Status: Active Protocol: Document 03/03/24 13:46 [facility] (Rec: 03/03/24 16:55 [facility] [id number]) Compression Pump Treatment Treatment Location Left Leg Pressure Amount (mmHg) (mmHG) 45 Inflation Time (Seconds) 30 Deflation Time (Seconds) 10 Treatment Tolerance Good Right Leg Pressure Amount (mmHg) (mmHG) 45 Inflation Time (Seconds) 30 Deflation Time (Seconds) 10 Treatment Tolerance Good Treatment Comments x30 min PT-OP-T Assessment and Plan Start: 02/24/24 13:04 Freq: Status: Active Protocol: Document 03/03/24 13:46 [facility] (Rec: 03/03/24 15:18 [facility] [id number]) Physical Therapy Assessment Impairments Impairments Activity Tolerance,Edema, Functional Mobility,Integument ,Soft Tissue Mobility Other Concerns Barriers to Rehabilitation obesity, DM,cardiac, HTN, ARAMBULA Goals 2 Impairment lymphedema life impact scale 76% Impairment c/o urinary frequency and urgency every 45 min during the day and 3 times at night Short Term Goal (STG) decrease score to no greater than 60% STG Duration 03/31/24 [employer] Goal (LTG) decrease score to no greater than 35% as measure of improved function and quality of life related to his lymphedema LTG Duration 05/26/24 1 Impairment lymphedema chata LE's Impairment pt lacks a HEP for pelvic floor strengthening Short Term Goal (STG) Patient will be instructed in all aspects of lymphedema self -care to include skin care, elevation, self-massage, self- bandaging/compression options, and lymphedema exercises. STG Duration 03/31/24 Alf Goal (LTG) Decrease patient?s lymphedema to a stable level (no increase or decrease greater than 1 cm over the course of 1 week), patient to be independent with all aspects of self-care for lymphedema, and will obtain appropriate compression garment for lymphedema management in the home. Consider sequential pneumatic pump. LTG Duration 05/26/24 Assessment Summary Assessment Still struggling with compression for knees and thighs, trial compression bandaging with short stretch bandages today, patient reported felt like better, more even compression. Variable changes in circumferential measurements but ovall most improved some. Improving understanding of HEP and self MLD. Hasn't yet made appointment for garment consult and fitting. Physical Therapy Plan Frequency and Duration Frequency of Treatment 20 visits Duration of treatment (weeks) 12 Plan of Care Start Date 02/24/24 Plan of Care End Date 04/25/24 Therapeutic Interventions Therapeutic Interventions Home Exercise Program, Lymphedema Management,Manual Therapy,Patient/Caregiver Education,Self-Care/Home Management,Soft Tissue Mobilization,Taping, Therapeutic Activities, Therapeutic Exercises Modalities Vasopneumatic Devices Next Visit Focus/Plan Next Note Type Treatment Note Next Visit Plan Assess response to today's treatment with short stretch bandaging on right, continued use of sequential pneumatic pump on side opposite MLD ( done chata)
--- NOTE | 2024-03-04 16:29 | PT.OTN ---
Current Diagnoses Lymphedema, not elsewhere classified (03/04/24) Physical Therapy Treatment Note PT-OP-A Visit Information Start: 02/24/24 13:04 Freq: Status: Active Protocol: Document 03/04/24 13:01 [facility] (Rec: 03/04/24 13:35 [facility] [id number]) Out-Patient Physical Therapy Visit Information Visit Information Visit Type Treatment Note Visit Start Time 13:01 Visit Stop Time 14:27 Visit Number 5 Evaluation Information Evaluation Date 01/31/24 Precautions Precautions DM, neuropathy, venous insufficiency, HTN, obesity, ARAMBULA. Patient is 5'8, 397 lbs . PT-OP-B Current Condition Start: 02/24/24 13:04 Freq: Status: Active Protocol: Document 03/04/24 13:01 [facility] (Rec: 03/04/24 13:35 [facility] [id number]) Current Condition History of Current Condition Onset Date 2019 Current Complaints swelling bilateral LE's History of Current Condition Gradual onset and worsening swelling chata LE's especially since 2019. Diagnosed venous insufficiency and lymphedema Has worn compression stockings 25-30 for yrs due to father having bad legs and wanting to try to prevent same issue. Hasn't been seen in PT for CDT. Due to persistent and worsening edema chata LE's was referred to wound care; has been seen in wound care since 01/09/24. Doppler ordered, was negative. Boils developed on both LE's, persistent unhealed small wound remaining on left lower leg. Wound care ordered vecro compression wraps for feet and calves , reports about 40 cm circumference decrease since starting wound care. Reports severe ankylosing spondylosis, back pain, nerve damage left LE. Unable to exercise due to joint pain in all LE joints and low back. Has Nu-Step at home, min resistance tolerated but can ride for up to 1 hour . Doesn't tolerate going for walks due to joint pain. Requires use of FWW for ambulation. States he was started on an antibiotic last week by wound care. States velcro compression wraps seem too big for feet now. Interested if other option for compression, feels like compression wraps help calves but push fluid to knees and it doesn't go any further. Is interested in considering pneumatic pump for home use and receptive to discussion options for compression garments. Prior Treatments and Tests doppler last month negative for clots Personal Factors Other Personal Factors That May Effect obesity 388 lbs, DM, HTN Therapy/Recovery PT-OP-C Subjective Start: 02/24/24 13:04 Freq: Status: Active Protocol: Document 03/04/24 13:01 [facility] (Rec: 03/04/24 16:29 [facility] [id number]) OP-PT Subjective Patient Comments Patient Comments Patient able to leave bandaging on all night, proximal section slid down, patient reports did not try to rebandage due to not feeling he could do it adequately, PT encouraged try bandaging further. Patient Reported Progress Improving PT-OP-F Manual Assessment Start: 02/24/24 13:04 Freq: Status: Active Protocol: Document 02/24/24 14:28 [facility] (Rec: 02/24/24 13:18 [facility] [id number]) Manual Assessments Soft Tissue Assessment Soft Tissue Mobility Assessment mild reddening chata lower legs knees to ankles, min warmth. No hemosiderin staining, mild fibrosis lower legs, no elephantiasis. PT-OP-G Mobility & Gait Start: 02/24/24 13:04 Freq: Status: Active Protocol: Document 02/24/24 14:28 [facility] (Rec: 02/24/24 13:18 [facility] [id number]) OP Mobility Evaluation Bed Mobility Rolling indep,labored Supine to and from Sit indep, labored OP Gait Assessment Gait Gait Assistance Required: Independent Assistive Devices Assistive Device Front Wheeled Walker Gait Deviations General Gait Pattern Decreased Stride Length, Decreased Feet Clearance,Wide Based Gait Factors Limiting Gait Function Factors Limiting Gait Function Pain Comments Gait Comments weight of legs with lymphedema PT-OP-H Neuro Start: 02/24/24 13:04 Freq: Status: Active Protocol: Document 02/24/24 14:28 [facility] (Rec: 02/24/24 13:18 [facility] [id number]) Sensation Evaluation Gross Sensation Gross Sensation Left LE Impaired,Right LE Impaired Location Details Right Leg Light Touch Impaired Left Leg Light Touch Impaired Vital Signs Blood Pressure Sitting Blood Pressure (90/60-120/80 mmHg) 132/80 H Blood Pressure Source Manual Cuff PT-OP-J Posture/Palpation/Skin Start: 02/24/24 13:04 Freq: Status: Active Protocol: Document 02/24/24 14:28 [facility] (Rec: 02/24/24 13:18 [facility] [id number]) Palpation Assessment Location chata LE's Palpation Findings Edema,Soft Tissue Tightness Palpation Details knees, lower legs, feet Skin Assessment Edema Assessment chata LE's Edema Type Non-Pitting Edema Degree 4+ Edema Appearance Puffy,Taut Subjective Edema Description Tightness PT-OP-K Range of Motion Start: 02/24/24 13:04 Freq: Status: Active Protocol: Document 02/24/24 14:28 [facility] (Rec: 02/24/24 13:18 [facility] [id number]) Hip Goniometric Range of Motion Hip chata Comments mod dec all motions with c/o pain Knee Goniometric Range of Motion Knee chata Knee ROM WFL No Comments painful especially in weight- bearing Knee ROM Limitations Knee ROM Limitations Soft Tissue Tightness,Swelling Ankle and Foot Goniometric Range of Motion Ankle and Foot chata Ankle/Foot ROM WFL No Comments mod dec all motions Ankle and Foot ROM Limitations ROM Limitations Soft Tissue Tightness,Swelling PT-OP-N Lymphedema Start: 02/24/24 13:04 Freq: Status: Active Protocol: Document 03/04/24 13:01 [facility] (Rec: 03/04/24 13:35 [facility] [id number]) Lymphedema Measurements Lower Extremity Circumference Measurements Left Affected MT Heads 25.5 cm Mid-foot 25.7 cm Medial Malleolus 29 cm 10 cm From Medial Malleolus 30.8 cm 20 cm From Medial Malleolus 44.4 cm 30 cm From Medial Malleolus 47.9 cm 40 cm From Medial Malleolus 51.9 cm 50 cm From Medial Malleolus 66.7 cm 60 cm From Medial Malleolus 77.5 cm Knee Joint 51.9 cm - distances from anterior ankle crease medial mall measurement smallest ankle Right Affected MT Heads 25 cm Mid-foot 25 cm Medial Malleolus 26.7 cm 10 cm From Medial Malleolus 36.9 cm 20 cm From Medial Malleolus 45.3 cm 30 cm From Medial Malleolus 47.3 cm 40 cm From Medial Malleolus 61 cm 50 cm From Medial Malleolus 76.3 cm 60 cm From Medial Malleolus 85.2 cm Knee Joint 51.2 cm - distances from anterior ankle crease PT-OP-Q Treatments Start: 02/24/24 13:04 Freq: Status: Active Protocol: Document 03/04/24 13:01 [facility] (Rec: 03/04/24 13:35 [facility] [id number]) Lymphedema Treatment Manual Lymphatic Drainage Location chata LE's Duration 40 Comments sequential pneumatic pump opposite side of MLD Lymphedema Wrapping Body Location chata LE's Materials R: Tricofix size G, Artiflex, Comprilan (6, 8 x 2, 10x 2, 12x1) toes to upper thigh L: Coban2 system toes to knee, Tricofix size G, Artiflex, Comprilan (10, 12)knee to proximal thigh Sequential Lymphedema Exercises Location trunk rotation, chata LE's Comments also Sci-Fit x 5 min to further facilitate lymphatic flow Compression Garment Assessment Compression Garment Assessment Details patient contacted [facility] regarding appointment, they are checking insurance and will schedule when able. Patient Education Self Manual Lymphatic Drainage continue education technique during treatment Sequential Lymphedema Exercises performed with PT guidance; modifed with isometric LE plus trunk rotation PT-OP-R Modalities Start: 02/24/24 13:04 Freq: Status: Active Protocol: Document 03/04/24 13:01 [facility] (Rec: 03/04/24 13:35 [facility] [id number]) Compression Pump Treatment Treatment Location Left Leg Pressure Amount (mmHg) (mmHG) 45 Inflation Time (Seconds) 30 Deflation Time (Seconds) 10 Treatment Tolerance Good Treatment Comments during MLD right Right Leg Pressure Amount (mmHg) (mmHG) 45 Inflation Time (Seconds) 30 Deflation Time (Seconds) 10 Treatment Tolerance Good Treatment Comments during MLD left PT-OP-T Assessment and Plan Start: 02/24/24 13:04 Freq: Status: Active Protocol: Document 03/04/24 13:01 [facility] (Rec: 03/04/24 13:35 [facility] [id number]) Physical Therapy Assessment Impairments Impairments Activity Tolerance,Edema, Functional Mobility,Integument ,Soft Tissue Mobility Other Concerns Barriers to Rehabilitation obesity, DM,cardiac, HTN, ARAMBULA Goals 2 Impairment lymphedema life impact scale 76% Impairment c/o urinary frequency and urgency every 45 min during the day and 3 times at night Short Term Goal (STG) decrease score to no greater than 60% STG Duration 03/31/24 [employer] Goal (LTG) decrease score to no greater than 35% as measure of improved function and quality of life related to his lymphedema LTG Duration 05/26/24 1 Impairment lymphedema chata LE's Impairment pt lacks a HEP for pelvic floor strengthening Short Term Goal (STG) Patient will be instructed in all aspects of lymphedema self -care to include skin care, elevation, self-massage, self- bandaging/compression options, and lymphedema exercises. STG Duration 03/31/24 Longterm Goal (LTG) Decrease patient?s lymphedema to a stable level (no increase or decrease greater than 1 cm over the course of 1 week), patient to be independent with all aspects of self-care for lymphedema, and will obtain appropriate compression garment for lymphedema management in the home. Consider sequential pneumatic pump. LTG Duration 05/26/24 Assessment Summary Assessment Noted improvement in most circumferential measurements chata LE's. Patient able to wear compression bandaging with short stretch bandages all night but slid down and patient did not try to rebandage as discussed. Proximal bandaging provided on left LE overlapping with Coban distal LE and patient advised to rebandage if slides . Patient to see wound care tomorrow. No signs or symptoms of infection around wound dressing, wound not observable. Physical Therapy Plan Frequency and Duration Frequency of Treatment 20 visits Duration of treatment (weeks) 12 Plan of Care Start Date 02/24/24 Plan of Care End Date 04/25/24 Therapeutic Interventions Therapeutic Interventions Home Exercise Program, Lymphedema Management,Manual Therapy,Patient/Caregiver Education,Self-Care/Home Management,Soft Tissue Mobilization,Taping, Therapeutic Activities, Therapeutic Exercises Modalities Vasopneumatic Devices Next Visit Focus/Plan Next Note Type Treatment Note Next Visit Plan Continue CDT, continue patient education including discussion compression garments. Continue with use of sequential pneumatic pump on side not receiving MLD then switch for max effectiveness of treatment.
--- NOTE | 2024-03-05 12:59 | PT.OTN ---
Current Diagnoses Lymphedema, not elsewhere classified (03/05/24) Physical Therapy Treatment Note PT-OP-A Visit Information Start: 02/24/24 13:04 Freq: Status: Active Protocol: Document 03/05/24 12:59 [facility] (Rec: 03/05/24 13:55 [facility] [id number]) Out-Patient Physical Therapy Visit Information Visit Information Visit Type Treatment Note Visit Start Time 13:01 Visit Stop Time 14:27 Visit Number 6 Evaluation Information Evaluation Date 01/31/24 Precautions Precautions DM, neuropathy, venous insufficiency, HTN, obesity, ARAMBULA. Patient is 5'8, 397 lbs . PT-OP-B Current Condition Start: 02/24/24 13:04 Freq: Status: Active Protocol: Document 03/05/24 12:59 [facility] (Rec: 03/05/24 13:55 [facility] [id number]) Current Condition History of Current Condition Onset Date 2019 Current Complaints swelling bilateral LE's History of Current Condition Gradual onset and worsening swelling chata LE's especially since 2019. Diagnosed venous insufficiency and lymphedema Has worn compression stockings 25-30 for yrs due to father having bad legs and wanting to try to prevent same issue. Hasn't been seen in PT for CDT. Due to persistent and worsening edema chata LE's was referred to wound care; has been seen in wound care since 01/09/24. Doppler ordered, was negative. Boils developed on both LE's, persistent unhealed small wound remaining on left lower leg. Wound care ordered vecro compression wraps for feet and calves , reports about 40 cm circumference decrease since starting wound care. Reports severe ankylosing spondylosis, back pain, nerve damage left LE. Unable to exercise due to joint pain in all LE joints and low back. Has Nu-Step at home, min resistance tolerated but can ride for up to 1 hour . Doesn't tolerate going for walks due to joint pain. Requires use of FWW for ambulation. States he was started on an antibiotic last week by wound care. States velcro compression wraps seem too big for feet now. Interested if other option for compression, feels like compression wraps help calves but push fluid to knees and it doesn't go any further. Is interested in considering pneumatic pump for home use and receptive to discussion options for compression garments. Prior Treatments and Tests doppler last month negative for clots PT-OP-C Subjective Start: 02/24/24 13:04 Freq: Status: Active Protocol: Document 03/05/24 12:59 [facility] (Rec: 03/05/24 13:55 [facility] [id number]) OP-PT Subjective Patient Comments Patient Comments Just saw wound care. Culture from 02/19 showed staph, wound has gotten a little larger. Debrided it, not sure if change in dressing. Finisished antibiotics after 7 -10day course. Bandages on knees and thighs slid down. Has ordered some shorts to try to keep bandages up. Nurse reported used Adaptic on wound and that it doesn't appear to be infected. PT-OP-F Manual Assessment Start: 02/24/24 13:04 Freq: Status: Active Protocol: Document 02/24/24 14:28 [facility] (Rec: 02/24/24 13:18 [facility] [id number]) Manual Assessments Soft Tissue Assessment Soft Tissue Mobility Assessment mild reddening chata lower legs knees to ankles, min warmth. No hemosiderin staining, mild fibrosis lower legs, no elephantiasis. PT-OP-G Mobility & Gait Start: 02/24/24 13:04 Freq: Status: Active Protocol: Document 02/24/24 14:28 [facility] (Rec: 02/24/24 13:18 [facility] [id number]) OP Mobility Evaluation Bed Mobility Rolling indep,labored Supine to and from Sit indep, labored OP Gait Assessment Gait Gait Assistance Required: Independent Assistive Devices Assistive Device Front Wheeled Walker Gait Deviations General Gait Pattern Decreased Stride Length, Decreased Feet Clearance,Wide Based Gait Factors Limiting Gait Function Factors Limiting Gait Function Pain Comments Gait Comments weight of legs with lymphedema PT-OP-H Neuro Start: 02/24/24 13:04 Freq: Status: Active Protocol: Document 02/24/24 14:28 [facility] (Rec: 02/24/24 13:18 [facility] [id number]) Sensation Evaluation Gross Sensation Gross Sensation Left LE Impaired,Right LE Impaired Location Details Right Leg Light Touch Impaired Left Leg Light Touch Impaired Vital Signs Blood Pressure Sitting Blood Pressure (90/60-120/80 mmHg) 132/80 H Blood Pressure Source Manual Cuff PT-OP-J Posture/Palpation/Skin Start: 02/24/24 13:04 Freq: Status: Active Protocol: Document 02/24/24 14:28 [facility] (Rec: 02/24/24 13:18 [facility] [id number]) Palpation Assessment Location chata LE's Palpation Findings Edema,Soft Tissue Tightness Palpation Details knees, lower legs, feet Skin Assessment Edema Assessment chata LE's Edema Type Non-Pitting Edema Degree 4+ Edema Appearance Puffy,Taut Subjective Edema Description Tightness PT-OP-K Range of Motion Start: 02/24/24 13:04 Freq: Status: Active Protocol: Document 02/24/24 14:28 [facility] (Rec: 02/24/24 13:18 [facility] [id number]) Hip Goniometric Range of Motion Hip chata Comments mod dec all motions with c/o pain Knee Goniometric Range of Motion Knee chata Knee ROM WFL No Comments painful especially in weight- bearing Knee ROM Limitations Knee ROM Limitations Soft Tissue Tightness,Swelling Ankle and Foot Goniometric Range of Motion Ankle and Foot chata Ankle/Foot ROM WFL No Comments mod dec all motions Ankle and Foot ROM Limitations ROM Limitations Soft Tissue Tightness,Swelling PT-OP-N Lymphedema Start: 02/24/24 13:04 Freq: Status: Active Protocol: Document 03/05/24 12:59 [facility] (Rec: 03/05/24 13:55 [facility] [id number]) Lymphedema Measurements Lower Extremity Circumference Measurements Left Affected MT Heads 25.3 cm Mid-foot 26 cm Medial Malleolus 30.3 cm 10 cm From Medial Malleolus 32 cm 20 cm From Medial Malleolus 43.8 cm 30 cm From Medial Malleolus 47.8 cm 40 cm From Medial Malleolus 51.9 cm 50 cm From Medial Malleolus 63.1 cm 60 cm From Medial Malleolus 77.2 cm 70 cm From Medial Malleolus 84.7 cm Knee Joint 51.9 cm - distances from anterior ankle crease medial mall measurement smallest ankle Right Affected MT Heads 25 cm Mid-foot 25 cm Medial Malleolus 26.9 cm 10 cm From Medial Malleolus 36.6 cm 20 cm From Medial Malleolus 47.4 cm 30 cm From Medial Malleolus 47.4 cm 40 cm From Medial Malleolus 64 cm 50 cm From Medial Malleolus 76.2 cm 60 cm From Medial Malleolus 87.5 cm Knee Joint 52.6 cm PT-OP-Q Treatments Start: 02/24/24 13:04 Freq: Status: Active Protocol: Document 03/05/24 12:59 [facility] (Rec: 03/08/24 08:26 [facility] [id number]) Lymphedema Treatment Manual Lymphatic Drainage Location chata LE's Duration 40 Comments sequential pneumatic pump opposite side of MLD Lymphedema Wrapping Body Location chata LE's Materials R: Tricofix size G, Artiflex, Comprilan (6, 8 x 2, 10x 2, 12x1) toes to upper thigh L: Coban2 system toes to knee, Tricofix size G, Artiflex, Comprilan (10, 12)knee to proximal thigh Other Size F Tukbigrip lower legs and size J knees and thighs Sequential Lymphedema Exercises Location trunk rotation, chata LE's AROM sequential by joint Comments also Sci-Fit x 5 min to further facilitate lymphatic flow Patient Education Self Manual Lymphatic Drainage continue education technique during treatment PT-OP-R Modalities Start: 02/24/24 13:04 Freq: Status: Active Protocol: Document 03/05/24 12:59 [facility] (Rec: 03/08/24 08:26 [facility] [id number]) Compression Pump Treatment Treatment Location Left Leg Pressure Amount (mmHg) (mmHG) 45 Inflation Time (Seconds) 30 Deflation Time (Seconds) 10 Treatment Tolerance Good Treatment Comments during MLD right Right Leg Pressure Amount (mmHg) (mmHG) 45 Inflation Time (Seconds) 30 Deflation Time (Seconds) 10 Treatment Tolerance Good Treatment Comments during MLD left PT-OP-T Assessment and Plan Start: 02/24/24 13:04 Freq: Status: Active Protocol: Document 03/05/24 12:59 [facility] (Rec: 03/05/24 13:55 [facility] [id number]) Physical Therapy Assessment Impairments Impairments Activity Tolerance,Edema, Functional Mobility,Integument ,Soft Tissue Mobility Other Concerns Barriers to Rehabilitation obesity, DM,cardiac, HTN, ARAMBULA Goals 2 Impairment lymphedema life impact scale 76% Impairment c/o urinary frequency and urgency every 45 min during the day and 3 times at night Short Term Goal (STG) decrease score to no greater than 60% STG Duration 03/31/24 Awake Overnight Counselor Goal (LTG) decrease score to no greater than 35% as measure of improved function and quality of life related to his lymphedema LTG Duration 05/26/24 1 Impairment lymphedema chata LE's Impairment pt lacks a HEP for pelvic floor strengthening Short Term Goal (STG) Patient will be instructed in all aspects of lymphedema self -care to include skin care, elevation, self-massage, self- bandaging/compression options, and lymphedema exercises. STG Duration 03/31/24 [facility] Goal (LTG) Decrease patient?s lymphedema to a stable level (no increase or decrease greater than 1 cm over the course of 1 week), patient to be independent with all aspects of self-care for lymphedema, and will obtain appropriate compression garment for lymphedema management in the home. Consider sequential pneumatic pump. LTG Duration 05/26/24 Assessment Summary Assessment Mostly improved or stable measurements except proximally in thigh increased due to lack of proximal compression that stays. Trial Tubigrip over bandaging today and patient reports compression shorts have arrived at his house while waiting for PT appointment, hopeful they will help him keep proximal compression up. Awaiting appointment with [facility]. Physical Therapy Plan Frequency and Duration Frequency of Treatment 20 visits Duration of treatment (weeks) 12 Plan of Care Start Date 02/24/24 Plan of Care End Date 04/25/24 Therapeutic Interventions Therapeutic Interventions Home Exercise Program, Lymphedema Management,Manual Therapy,Patient/Caregiver Education,Self-Care/Home Management,Soft Tissue Mobilization,Taping, Therapeutic Activities, Therapeutic Exercises Modalities Vasopneumatic Devices Next Visit Focus/Plan Next Note Type Treatment Note Next Visit Plan Continue CDT, continue patient education including discussion compression garments. Continue with use of sequential pneumatic pump on side not receiving MLD then switch for max effectiveness of treatment. Problem-solve compression garment recommendations.
--- NOTE | 2024-03-10 15:57 | PT.OTN ---
Current Diagnoses Lymphedema, not elsewhere classified (03/10/24) Physical Therapy Treatment Note PT-OP-A Visit Information Start: 02/24/24 13:04 Freq: Status: Active Protocol: Document 03/10/24 12:58 [facility] (Rec: 03/10/24 13:27 [facility] [id number]) Out-Patient Physical Therapy Visit Information Visit Information Visit Type Treatment Note Visit Start Time 12:59 Visit Stop Time 14:29 Visit Number 8 Evaluation Information Evaluation Date 01/31/24 Precautions Precautions DM, neuropathy, venous insufficiency, HTN, obesity, ARAMBULA. Patient is 5'8, 397 lbs . PT-OP-B Current Condition Start: 02/24/24 13:04 Freq: Status: Active Protocol: Document 03/10/24 12:58 [facility] (Rec: 03/10/24 13:27 [facility] [id number]) Current Condition History of Current Condition Onset Date 2019 Current Complaints swelling bilateral LE's History of Current Condition Gradual onset and worsening swelling chata LE's especially since 2019. Diagnosed venous insufficiency and lymphedema Has worn compression stockings 25-30 for yrs due to father having bad legs and wanting to try to prevent same issue. Hasn't been seen in PT for CDT. Due to persistent and worsening edema chata LE's was referred to wound care; has been seen in wound care since 01/09/24. Doppler ordered, was negative. Boils developed on both LE's, persistent unhealed small wound remaining on left lower leg. Wound care ordered vecro compression wraps for feet and calves , reports about 40 cm circumference decrease since starting wound care. Reports severe ankylosing spondylosis, back pain, nerve damage left LE. Unable to exercise due to joint pain in all LE joints and low back. Has Nu-Step at home, min resistance tolerated but can ride for up to 1 hour . Doesn't tolerate going for walks due to joint pain. Requires use of FWW for ambulation. States he was started on an antibiotic last week by wound care. States velcro compression wraps seem too big for feet now. Interested if other option for compression, feels like compression wraps help calves but push fluid to knees and it doesn't go any further. Is interested in considering pneumatic pump for home use and receptive to discussion options for compression garments. Prior Treatments and Tests doppler last month negative for clots Personal Factors Other Personal Factors That May Effect obesity 388 lbs, DM, HTN Therapy/Recovery PT-OP-C Subjective Start: 02/24/24 13:04 Freq: Status: Active Protocol: Document 03/10/24 12:58 [facility] (Rec: 03/10/24 13:27 [facility] [id number]) OP-PT Subjective Patient Comments Patient Comments Talked with [facility], they are working on insurance approval, has bandaging kits ordered from the lymphedema store. Ordered some bike shorts. Found some lycra shorts for in the meantime to hold bandages up. Liked bandaging LE's in sitting, states they didn't slide down as much on thighs, would like to continue with this technique that was suggested by him. PT-OP-F Manual Assessment Start: 02/24/24 13:04 Freq: Status: Active Protocol: Document 02/24/24 14:28 [facility] (Rec: 02/24/24 13:18 [facility] [id number]) Manual Assessments Soft Tissue Assessment Soft Tissue Mobility Assessment mild reddening chata lower legs knees to ankles, min warmth. No hemosiderin staining, mild fibrosis lower legs, no elephantiasis. PT-OP-G Mobility & Gait Start: 02/24/24 13:04 Freq: Status: Active Protocol: Document 02/24/24 14:28 [facility] (Rec: 02/24/24 13:18 [facility] [id number]) OP Mobility Evaluation Bed Mobility Rolling indep,labored Supine to and from Sit indep, labored OP Gait Assessment Gait Gait Assistance Required: Independent Assistive Devices Assistive Device Front Wheeled Walker Gait Deviations General Gait Pattern Decreased Stride Length, Decreased Feet Clearance,Wide Based Gait Factors Limiting Gait Function Factors Limiting Gait Function Pain Comments Gait Comments weight of legs with lymphedema PT-OP-H Neuro Start: 02/24/24 13:04 Freq: Status: Active Protocol: Document 02/24/24 14:28 [facility] (Rec: 02/24/24 13:18 [facility] [id number]) Sensation Evaluation Gross Sensation Gross Sensation Left LE Impaired,Right LE Impaired Location Details Right Leg Light Touch Impaired Left Leg Light Touch Impaired Vital Signs Blood Pressure Sitting Blood Pressure (90/60-120/80 mmHg) 132/80 H Blood Pressure Source Manual Cuff PT-OP-J Posture/Palpation/Skin Start: 02/24/24 13:04 Freq: Status: Active Protocol: Document 02/24/24 14:28 [facility] (Rec: 02/24/24 13:18 [facility] [id number]) Palpation Assessment Location chata LE's Palpation Findings Edema,Soft Tissue Tightness Palpation Details knees, lower legs, feet Skin Assessment Edema Assessment chata LE's Edema Type Non-Pitting Edema Degree 4+ Edema Appearance Puffy,Taut Subjective Edema Description Tightness PT-OP-K Range of Motion Start: 02/24/24 13:04 Freq: Status: Active Protocol: Document 02/24/24 14:28 [facility] (Rec: 02/24/24 13:18 [facility] [id number]) Hip Goniometric Range of Motion Hip chata Comments mod dec all motions with c/o pain Knee Goniometric Range of Motion Knee chata Knee ROM WFL No Comments painful especially in weight- bearing Knee ROM Limitations Knee ROM Limitations Soft Tissue Tightness,Swelling Ankle and Foot Goniometric Range of Motion Ankle and Foot hcata Ankle/Foot ROM WFL No Comments mod dec all motions Ankle and Foot ROM Limitations ROM Limitations Soft Tissue Tightness,Swelling PT-OP-N Lymphedema Start: 02/24/24 13:04 Freq: Status: Active Protocol: Document 03/10/24 12:58 [facility] (Rec: 03/10/24 13:27 [facility] [id number]) Lymphedema Measurements Lower Extremity Circumference Measurements Left Affected MT Heads 25 cm Mid-foot 25 cm Medial Malleolus 27 cm 10 cm From Medial Malleolus 30.4 cm 20 cm From Medial Malleolus 40.6 cm 30 cm From Medial Malleolus 46.4 cm 40 cm From Medial Malleolus 49.9 cm 50 cm From Medial Malleolus 62 cm 60 cm From Medial Malleolus 75 cm 70 cm From Medial Malleolus 83 cm Knee Joint 49.9 cm - distances from anterior ankle crease medial mall measurement smallest ankle Right Affected MT Heads 24.3 cm Mid-foot 25 cm Medial Malleolus 28.8 cm 10 cm From Medial Malleolus 36.3 cm 20 cm From Medial Malleolus 43.3 cm 30 cm From Medial Malleolus 45.9 cm 40 cm From Medial Malleolus 50.4 cm 50 cm From Medial Malleolus 68.9 cm 60 cm From Medial Malleolus 78 cm 70 cm From Medial Malleolus 85.5 cm Knee Joint 50.4 cm - distances from anterior ankle crease medial mall measurement smallest ankle PT-OP-Q Treatments Start: 02/24/24 13:04 Freq: Status: Active Protocol: Document 03/10/24 12:59 [facility] (Rec: 03/10/24 13:34 [facility] [id number]) Lymphedema Treatment Manual Lymphatic Drainage Location chata LE's Duration 40 Comments sequential pneumatic pump opposite side of MLD Lymphedema Wrapping Body Location chata LE's Materials R: Tricofix size G, Artiflex, Comprilan (6, 8 x 2, 10x 2, 12x1) toes to upper thigh L: Coban2 system toes to knee, Tricofix size G, Artiflex, Comprilan (10, 12)knee to proximal thigh Other Size F Tukbigrip lower legs and size J knees and thighs Sequential Lymphedema Exercises Location trunk rotation, chata LE's AROM sequential by joint Comments also Sci-Fit x 5 min to further facilitate lymphatic flow PT-OP-R Modalities Start: 02/24/24 13:04 Freq: Status: Active Protocol: Document 03/10/24 12:59 [facility] (Rec: 03/10/24 15:57 [facility] [id number]) Compression Pump Treatment Treatment Location Left Leg Pressure Amount (mmHg) (mmHG) 45 Inflation Time (Seconds) 30 Deflation Time (Seconds) 10 Treatment Tolerance Good Treatment Comments during MLD right Right Leg Pressure Amount (mmHg) (mmHG) 45 Inflation Time (Seconds) 30 Deflation Time (Seconds) 10 Treatment Tolerance Good Treatment Comments during MLD left PT-OP-T Assessment and Plan Start: 02/24/24 13:04 Freq: Status: Active Protocol: Document 03/10/24 12:58 [facility] (Rec: 03/10/24 13:27 [facility] [id number]) Physical Therapy Assessment Impairments Impairments Activity Tolerance,Edema, Functional Mobility,Integument ,Soft Tissue Mobility Other Concerns Barriers to Rehabilitation obesity, DM,cardiac, HTN, ARAMBULA Goals 2 Impairment lymphedema life impact scale 76% Impairment c/o urinary frequency and urgency every 45 min during the day and 3 times at night Short Term Goal (STG) decrease score to no greater than 60% STG Duration 03/31/24 Donor Relations Associate Goal (LTG) decrease score to no greater than 35% as measure of improved function and quality of life related to his lymphedema LTG Duration 05/26/24 1 Impairment lymphedema chata LE's Impairment pt lacks a HEP for pelvic floor strengthening Short Term Goal (STG) Patient will be instructed in all aspects of lymphedema self -care to include skin care, elevation, self-massage, self- bandaging/compression options, and lymphedema exercises. STG Duration 03/31/24 [facility] Goal (LTG) Decrease patient?s lymphedema to a stable level (no increase or decrease greater than 1 cm over the course of 1 week), patient to be independent with all aspects of self-care for lymphedema, and will obtain appropriate compression garment for lymphedema management in the home. Consider sequential pneumatic pump. LTG Duration 05/26/24 Assessment Summary Assessment Good circumferential measurement improvement noted chata LE's, feel Tubigrip helped with decreased sizse and keeping bandaging up, patient agreed. Good progress. Physical Therapy Plan Frequency and Duration Frequency of Treatment 20 visits Duration of treatment (weeks) 12 Plan of Care Start Date 02/24/24 Plan of Care End Date 04/25/24 Therapeutic Interventions Therapeutic Interventions Home Exercise Program, Lymphedema Management,Manual Therapy,Patient/Caregiver Education,Self-Care/Home Management,Soft Tissue Mobilization,Taping, Therapeutic Activities, Therapeutic Exercises Modalities Vasopneumatic Devices Next Visit Focus/Plan Next Note Type Treatment Note Next Visit Plan Continue CDT, continue patient education including discussion compression garments. Continue with use of sequential pneumatic pump on side not receiving MLD then switch for max effectiveness of treatment. Problem-solve compression garment recommendations.
--- NOTE | 2024-03-11 15:50 | PT.OTN ---
Current Diagnoses Lymphedema, not elsewhere classified (03/11/24) Physical Therapy Treatment Note PT-OP-A Visit Information Start: 02/24/24 13:04 Freq: Status: Active Protocol: Document 03/11/24 15:40 SAK (Rec: 03/11/24 15:50 [facility] [id number]) Out-Patient Physical Therapy Visit Information Visit Information Visit Type Treatment Note Visit Start Time 12:59 Visit Stop Time 14:30 Visit Number 9 Evaluation Information Evaluation Date 01/31/24 Precautions Precautions DM, neuropathy, venous insufficiency, HTN, obesity, ARAMBULA. Patient is 5'8, 397 lbs . PT-OP-B Current Condition Start: 02/24/24 13:04 Freq: Status: Active Protocol: Document 03/11/24 15:40 SAK (Rec: 03/11/24 15:50 SAK [id number]) Current Condition History of Current Condition Onset Date 2019 Current Complaints swelling bilateral LE's History of Current Condition Gradual onset and worsening swelling chata LE's especially since 2019. Diagnosed venous insufficiency and lymphedema Has worn compression stockings 25-30 for yrs due to father having bad legs and wanting to try to prevent same issue. Hasn't been seen in PT for CDT. Due to persistent and worsening edema chata LE's was referred to wound care; has been seen in wound care since 01/09/24. Doppler ordered, was negative. Boils developed on both LE's, persistent unhealed small wound remaining on left lower leg. Wound care ordered vecro compression wraps for feet and calves , reports about 40 cm circumference decrease since starting wound care. Reports severe ankylosing spondylosis, back pain, nerve damage left LE. Unable to exercise due to joint pain in all LE joints and low back. Has Nu-Step at home, min resistance tolerated but can ride for up to 1 hour . Doesn't tolerate going for walks due to joint pain. Requires use of FWW for ambulation. States he was started on an antibiotic last week by wound care. States velcro compression wraps seem too big for feet now. Interested if other option for compression, feels like compression wraps help calves but push fluid to knees and it doesn't go any further. Is interested in considering pneumatic pump for home use and receptive to discussion options for compression garments. Prior Treatments and Tests doppler last month negative for clots PT-OP-C Subjective Start: 02/24/24 13:04 Freq: Status: Active Protocol: Document 03/11/24 15:40 SAK (Rec: 03/11/24 15:50 [facility] [id number]) OP-PT Subjective Patient Comments Patient Comments Informed patient per life insurance agent notification only 1 further PT appointment approved for 2023. Discussed options for schedule, possibility and potential cost of self pay, taking time off to learn bandaging. Patient to discuss with , aware tomorrow is last approved visit that will be covered by insurance. PT-OP-F Manual Assessment Start: 02/24/24 13:04 Freq: Status: Active Protocol: Document 02/24/24 14:28 SAK (Rec: 02/24/24 13:18 [facility] [id number]) Manual Assessments Soft Tissue Assessment Soft Tissue Mobility Assessment mild reddening chata lower legs knees to ankles, min warmth. No hemosiderin staining, mild fibrosis lower legs, no elephantiasis. PT-OP-G Mobility & Gait Start: 02/24/24 13:04 Freq: Status: Active Protocol: Document 02/24/24 14:28 SAK (Rec: 02/24/24 13:18 [facility] [id number]) OP Mobility Evaluation Bed Mobility Rolling indep,labored Supine to and from Sit indep, labored OP Gait Assessment Gait Gait Assistance Required: Independent Assistive Devices Assistive Device Front Wheeled Walker Gait Deviations General Gait Pattern Decreased Stride Length, Decreased Feet Clearance,Wide Based Gait Factors Limiting Gait Function Factors Limiting Gait Function Pain Comments Gait Comments weight of legs with lymphedema PT-OP-H Neuro Start: 02/24/24 13:04 Freq: Status: Active Protocol: Document 02/24/24 14:28 SAK (Rec: 02/24/24 13:18 [facility] [id number]) Sensation Evaluation Gross Sensation Gross Sensation Left LE Impaired,Right LE Impaired Location Details Right Leg Light Touch Impaired Left Leg Light Touch Impaired Vital Signs Blood Pressure Sitting Blood Pressure (90/60-120/80 mmHg) 132/80 H Blood Pressure Source Manual Cuff PT-OP-J Posture/Palpation/Skin Start: 02/24/24 13:04 Freq: Status: Active Protocol: Document 02/24/24 14:28 SAK (Rec: 02/24/24 13:18 [facility] [id number]) Palpation Assessment Location chata LE's Palpation Findings Edema,Soft Tissue Tightness Palpation Details knees, lower legs, feet Skin Assessment Edema Assessment chata LE's Edema Type Non-Pitting Edema Degree 4+ Edema Appearance Puffy,Taut Subjective Edema Description Tightness PT-OP-K Range of Motion Start: 02/24/24 13:04 Freq: Status: Active Protocol: Document 02/24/24 14:28 SAK (Rec: 02/24/24 13:18 [facility] [id number]) Hip Goniometric Range of Motion Hip chata Comments mod dec all motions with c/o pain Knee Goniometric Range of Motion Knee chata Knee ROM WFL No Comments painful especially in weight- bearing Knee ROM Limitations Knee ROM Limitations Soft Tissue Tightness,Swelling Ankle and Foot Goniometric Range of Motion Ankle and Foot chata Ankle/Foot ROM WFL No Comments mod dec all motions Ankle and Foot ROM Limitations ROM Limitations Soft Tissue Tightness,Swelling PT-OP-N Lymphedema Start: 02/24/24 13:04 Freq: Status: Active Protocol: Document 03/11/24 15:40 SAK (Rec: 03/11/24 15:50 [facility] [id number]) Lymphedema Measurements Lower Extremity Circumference Measurements Left Affected - measured but computer and measurements lost Right Affected - measured but computer during session and measurements lost PT-OP-Q Treatments Start: 02/24/24 13:04 Freq: Status: Active Protocol: Document 03/11/24 15:40 SAK (Rec: 03/11/24 15:50 [facility] [id number]) Lymphedema Treatment Manual Lymphatic Drainage Location chata LE's Duration 40 Comments sequential pneumatic pump opposite side of MLD Lymphedema Wrapping Other Size F Tukbigrip lower legs and size J knees and thighs Sequential Lymphedema Exercises Location trunk rotation, chata LE's Comments also Sci-Fit x 5 min to further facilitate lymphatic flow PT-OP-R Modalities Start: 02/24/24 13:04 Freq: Status: Active Protocol: Document 03/11/24 15:40 SAK (Rec: 03/11/24 15:50 [facility] [id number]) Compression Pump Treatment Treatment Location Left Leg Pressure Amount (mmHg) (mmHG) 45 Inflation Time (Seconds) 30 Deflation Time (Seconds) 10 Treatment Tolerance Good Treatment Comments during MLD right Right Leg Pressure Amount (mmHg) (mmHG) 45 Inflation Time (Seconds) 30 Deflation Time (Seconds) 10 Treatment Tolerance Good Treatment Comments during MLD left PT-OP-T Assessment and Plan Start: 02/24/24 13:04 Freq: Status: Active Protocol: Document 03/11/24 15:40 VANESSA (Rec: 03/11/24 15:50 SAK [id number]) Physical Therapy Assessment Impairments Impairments Activity Tolerance,Edema, Functional Mobility,Integument ,Soft Tissue Mobility Other Concerns Barriers to Rehabilitation obesity, DM,cardiac, HTN, ARAMBULA Goals 2 Impairment lymphedema life impact scale 76% Impairment c/o urinary frequency and urgency every 45 min during the day and 3 times at night Short Term Goal (STG) decrease score to no greater than 60% STG Duration 03/31/24 Fdc Goal (LTG) decrease score to no greater than 35% as measure of improved function and quality of life related to his lymphedema LTG Duration 05/26/24 1 Impairment lymphedema chata LE's Impairment pt lacks a HEP for pelvic floor strengthening Short Term Goal (STG) Patient will be instructed in all aspects of lymphedema self -care to include skin care, elevation, self-massage, self- bandaging/compression options, and lymphedema exercises. STG Duration 03/31/24 [facility] Goal (LTG) Decrease patient?s lymphedema to a stable level (no increase or decrease greater than 1 cm over the course of 1 week), patient to be independent with all aspects of self-care for lymphedema, and will obtain appropriate compression garment for lymphedema management in the home. Consider sequential pneumatic pump. LTG Duration 05/26/24 Assessment Summary Assessment Patient has been progressing well, discussed challenges of self care as unable to bandage himself due to weakness, body size, medical issues. He will discuss limitations insurance coverage with and talke with PT tomorrow. Wound care prior to PT tomorrow. Physical Therapy Plan Frequency and Duration Frequency of Treatment 20 visits Duration of treatment (weeks) 12 Plan of Care Start Date 02/24/24 Plan of Care End Date 04/25/24 Therapeutic Interventions Therapeutic Interventions Home Exercise Program, Lymphedema Management,Manual Therapy,Patient/Caregiver Education,Self-Care/Home Management,Soft Tissue Mobilization,Taping, Therapeutic Activities, Therapeutic Exercises Modalities Vasopneumatic Devices Next Visit Focus/Plan Next Note Type Treatment Note Next Visit Plan Continue CDT, continue patient education including discussion compression garments. Continue with use of sequential pneumatic pump on side not receiving MLD then switch for max effectiveness of treatment. Discuss POC, educate as she is able with work schedule.
--- NOTE | 2024-03-12 12:53 | PT.OPPN ---
Current Diagnoses Lymphedema, not elsewhere classified (03/16/24) Physical Therapy Progress Note PT-OP-A Visit Information Start: 02/24/24 13:04 Freq: Status: Active Protocol: Document 03/12/24 12:59 [facility] (Rec: 03/12/24 16:27 [facility] [id number]) Out-Patient Physical Therapy Visit Information Visit Information Visit Type Treatment Note Visit Start Time 13:00 Visit Stop Time 14:30 Visit Number 10 Evaluation Information Evaluation Date 01/31/24 Precautions Precautions DM, neuropathy, venous insufficiency, HTN, obesity, ARAMBULA. Patient is 5'8, 397 lbs . PT-OP-B Current Condition Start: 02/24/24 13:04 Freq: Status: Active Protocol: Document 03/12/24 12:59 [facility] (Rec: 03/12/24 16:27 [facility] [id number]) Current Condition History of Current Condition Onset Date 2019 Current Complaints swelling bilateral LE's History of Current Condition Gradual onset and worsening swelling chata LE's especially since 2019. Diagnosed venous insufficiency and lymphedema Has worn compression stockings 25-30 for yrs due to father having bad legs and wanting to try to prevent same issue. Hasn't been seen in PT for CDT. Due to persistent and worsening edema chata LE's was referred to wound care; has been seen in wound care since 01/09/24. Doppler ordered, was negative. Boils developed on both LE's, persistent unhealed small wound remaining on left lower leg. Wound care ordered vecro compression wraps for feet and calves , reports about 40 cm circumference decrease since starting wound care. Reports severe ankylosing spondylosis, back pain, nerve damage left LE. Unable to exercise due to joint pain in all LE joints and low back. Has Nu-Step at home, min resistance tolerated but can ride for up to 1 hour . Doesn't tolerate going for walks due to joint pain. Requires use of FWW for ambulation. States he was started on an antibiotic last week by wound care. States velcro compression wraps seem too big for feet now. Interested if other option for compression, feels like compression wraps help calves but push fluid to knees and it doesn't go any further. Is interested in considering pneumatic pump for home use and receptive to discussion options for compression garments. Prior Treatments and Tests doppler last month negative for clots PT-OP-C Subjective Start: 02/24/24 13:04 Freq: Status: Active Protocol: Document 03/11/24 15:40 SAK (Rec: 03/11/24 15:50 [facility] [id number]) OP-PT Subjective Patient Comments Patient Comments Informed patient per insurance salesperson notification only 1 further PT appointment approved for 2023. Discussed options for schedule, possibility and potential cost of self pay, taking time off to learn bandaging. Patient to discuss with , aware tomorrow is last approved visit that will be covered by insurance. PT-OP-F Manual Assessment Start: 02/24/24 13:04 Freq: Status: Active Protocol: Document 02/24/24 14:28 SAK (Rec: 02/24/24 13:18 [facility] [id number]) Manual Assessments Soft Tissue Assessment Soft Tissue Mobility Assessment mild reddening chata lower legs knees to ankles, min warmth. No hemosiderin staining, mild fibrosis lower legs, no elephantiasis. PT-OP-G Mobility & Gait Start: 02/24/24 13:04 Freq: Status: Active Protocol: Document 02/24/24 14:28 SAK (Rec: 02/24/24 13:18 [facility] [id number]) OP Mobility Evaluation Bed Mobility Rolling indep,labored Supine to and from Sit indep, labored OP Gait Assessment Gait Gait Assistance Required: Independent Assistive Devices Assistive Device Front Wheeled Walker Gait Deviations General Gait Pattern Decreased Stride Length, Decreased Feet Clearance,Wide Based Gait Factors Limiting Gait Function Factors Limiting Gait Function Pain Comments Gait Comments weight of legs with lymphedema PT-OP-H Neuro Start: 02/24/24 13:04 Freq: Status: Active Protocol: Document 02/24/24 14:28 SAK (Rec: 02/24/24 13:18 [facility] [id number]) Sensation Evaluation Gross Sensation Gross Sensation Left LE Impaired,Right LE Impaired Location Details Right Leg Light Touch Impaired Left Leg Light Touch Impaired Vital Signs Blood Pressure Sitting Blood Pressure (90/60-120/80 mmHg) 132/80 H Blood Pressure Source Manual Cuff PT-OP-J Posture/Palpation/Skin Start: 02/24/24 13:04 Freq: Status: Active Protocol: Document 02/24/24 14:28 SAK (Rec: 02/24/24 13:18 [facility] [id number]) Palpation Assessment Location chata LE's Palpation Findings Edema,Soft Tissue Tightness Palpation Details knees, lower legs, feet Skin Assessment Edema Assessment chata LE's Edema Type Non-Pitting Edema Degree 4+ Edema Appearance Puffy,Taut Subjective Edema Description Tightness PT-OP-K Range of Motion Start: 02/24/24 13:04 Freq: Status: Active Protocol: Document 02/24/24 14:28 [facility] (Rec: 02/24/24 13:18 [facility] [id number]) Hip Goniometric Range of Motion Hip Measured in Degrees chata Comments mod dec all motions with c/o pain Knee Goniometric Range of Motion Knee Measured in Degrees chata Knee ROM WFL No Comments painful especially in weight- bearing Knee ROM Limitations Knee ROM Limitations Soft Tissue Tightness,Swelling Ankle and Foot Goniometric Range of Motion Ankle and Foot Measured in Degrees chata Ankle/Foot ROM WFL No Comments mod dec all motions Ankle and Foot ROM Limitations ROM Limitations Soft Tissue Tightness,Swelling PT-OP-N Lymphedema Start: 02/24/24 13:04 Freq: Status: Active Protocol: Document 03/12/24 12:59 [facility] (Rec: 03/12/24 16:27 [facility] [id number]) Lymphedema Measurements Lower Extremity Circumference Measurements Right Affected MT Heads 25 cm Mid-foot 24.7 cm Medial Malleolus 26.2 cm 10 cm From Medial Malleolus 34.2 cm 20 cm From Medial Malleolus 41.9 cm 30 cm From Medial Malleolus 44.3 cm 40 cm From Medial Malleolus 52.7 cm 50 cm From Medial Malleolus 63.8 cm 60 cm From Medial Malleolus 79 cm 70 cm From Medial Malleolus 84.9 cm Knee Joint 52.7 cm PT-OP-T Assessment and Plan Start: 02/24/24 13:04 Freq: Status: Active Protocol: Document 03/12/24 12:59 [facility] (Rec: 03/12/24 16:27 [facility] [id number]) Physical Therapy Assessment Assessment Summary Assessment Patient reported wound care stated wound a little smaller. Reporting high compliance to elevation, exercise, deep breathing and self massage proximally (can't reach distally). Circumferential measurements variable today. Found out no further approved PT visits with insurance, will need to modify treatments or cancel pending patient decision regarding private pay . Physical Therapy Plan Next Visit Focus/Plan Next Note Type Treatment Note Next Visit Plan Modified treatment, shorter due to running out of insurance benefits for the year. Encouraged unbandaging prior to treatment, will focus primarily on rebandaging and monitoring circumferential measurements. Patient to continue with HEP, self massage, skin care, elevation. will attempt bandaging at home. Will request sequential pneumatic pump after 30 days of conservative therapy.
--- NOTE | 2024-03-12 16:31 | PT.OTN ---
Current Diagnoses Lymphedema, not elsewhere classified (03/12/24) Physical Therapy Treatment Note PT-OP-A Visit Information Start: 02/24/24 13:04 Freq: Status: Active Protocol: Document 03/12/24 12:59 [facility] (Rec: 03/12/24 16:27 [facility] [id number]) Out-Patient Physical Therapy Visit Information Visit Information Visit Type Treatment Note Visit Start Time 13:00 Visit Stop Time 14:30 Visit Number 10 Evaluation Information Evaluation Date 01/31/24 Precautions Precautions DM, neuropathy, venous insufficiency, HTN, obesity, ARAMBULA. Patient is 5'8, 397 lbs . PT-OP-B Current Condition Start: 02/24/24 13:04 Freq: Status: Active Protocol: Document 03/12/24 12:59 [facility] (Rec: 03/12/24 16:27 [facility] [id number]) Current Condition History of Current Condition Onset Date 2019 Current Complaints swelling bilateral LE's History of Current Condition Gradual onset and worsening swelling chata LE's especially since 2019. Diagnosed venous insufficiency and lymphedema Has worn compression stockings 25-30 for yrs due to father having bad legs and wanting to try to prevent same issue. Hasn't been seen in PT for CDT. Due to persistent and worsening edema chata LE's was referred to wound care; has been seen in wound care since 01/09/24. Doppler ordered, was negative. Boils developed on both LE's, persistent unhealed small wound remaining on left lower leg. Wound care ordered vecro compression wraps for feet and calves , reports about 40 cm circumference decrease since starting wound care. Reports severe ankylosing spondylosis, back pain, nerve damage left LE. Unable to exercise due to joint pain in all LE joints and low back. Has Nu-Step at home, min resistance tolerated but can ride for up to 1 hour . Doesn't tolerate going for walks due to joint pain. Requires use of FWW for ambulation. States he was started on an antibiotic last week by wound care. States velcro compression wraps seem too big for feet now. Interested if other option for compression, feels like compression wraps help calves but push fluid to knees and it doesn't go any further. Is interested in considering pneumatic pump for home use and receptive to discussion options for compression garments. Prior Treatments and Tests doppler last month negative for clots PT-OP-C Subjective Start: 02/24/24 13:04 Freq: Status: Active Protocol: Document 03/11/24 15:40 [facility] (Rec: 03/11/24 15:50 [facility] [id number]) OP-PT Subjective Patient Comments Patient Comments Informed patient per disability insurance claim examiner notification only 1 further PT appointment approved for 2023. Discussed options for schedule, possibility and potential cost of self pay, taking time off to learn bandaging. Patient to discuss with , aware tomorrow is last approved visit that will be covered by insurance. PT-OP-F Manual Assessment Start: 02/24/24 13:04 Freq: Status: Active Protocol: Document 02/24/24 14:28 [facility] (Rec: 02/24/24 13:18 [facility] [id number]) Manual Assessments Soft Tissue Assessment Soft Tissue Mobility Assessment mild reddening chata lower legs knees to ankles, min warmth. No hemosiderin staining, mild fibrosis lower legs, no elephantiasis. PT-OP-G Mobility & Gait Start: 02/24/24 13:04 Freq: Status: Active Protocol: Document 02/24/24 14:28 [facility] (Rec: 02/24/24 13:18 [facility] [id number]) OP Mobility Evaluation Bed Mobility Rolling indep,labored Supine to and from Sit indep, labored OP Gait Assessment Gait Gait Assistance Required: Independent Assistive Devices Assistive Device Front Wheeled Walker Gait Deviations General Gait Pattern Decreased Stride Length, Decreased Feet Clearance,Wide Based Gait Factors Limiting Gait Function Factors Limiting Gait Function Pain Comments Gait Comments weight of legs with lymphedema PT-OP-H Neuro Start: 02/24/24 13:04 Freq: Status: Active Protocol: Document 02/24/24 14:28 [facility] (Rec: 02/24/24 13:18 [facility] [id number]) Sensation Evaluation Gross Sensation Gross Sensation Left LE Impaired,Right LE Impaired Location Details Right Leg Light Touch Impaired Left Leg Light Touch Impaired Vital Signs Blood Pressure Sitting Blood Pressure (90/60-120/80 mmHg) 132/80 H Blood Pressure Source Manual Cuff PT-OP-J Posture/Palpation/Skin Start: 02/24/24 13:04 Freq: Status: Active Protocol: Document 02/24/24 14:28 [facility] (Rec: 02/24/24 13:18 [facility] [id number]) Palpation Assessment Location chata LE's Palpation Findings Edema,Soft Tissue Tightness Palpation Details knees, lower legs, feet Skin Assessment Edema Assessment chata LE's Edema Type Non-Pitting Edema Degree 4+ Edema Appearance Puffy,Taut Subjective Edema Description Tightness PT-OP-K Range of Motion Start: 02/24/24 13:04 Freq: Status: Active Protocol: Document 02/24/24 14:28 [facility] (Rec: 02/24/24 13:18 [facility] [id number]) Hip Goniometric Range of Motion Hip chata Comments mod dec all motions with c/o pain Knee Goniometric Range of Motion Knee chata Knee ROM WFL No Comments painful especially in weight- bearing Knee ROM Limitations Knee ROM Limitations Soft Tissue Tightness,Swelling Ankle and Foot Goniometric Range of Motion Ankle and Foot chata Ankle/Foot ROM WFL No Comments mod dec all motions Ankle and Foot ROM Limitations ROM Limitations Soft Tissue Tightness,Swelling PT-OP-N Lymphedema Start: 02/24/24 13:04 Freq: Status: Active Protocol: Document 03/12/24 12:59 [facility] (Rec: 03/12/24 16:27 [facility] [id number]) Lymphedema Measurements Lower Extremity Circumference Measurements Right Affected MT Heads 25 cm Mid-foot 24.7 cm Medial Malleolus 26.2 cm 10 cm From Medial Malleolus 34.2 cm 20 cm From Medial Malleolus 41.9 cm 30 cm From Medial Malleolus 44.3 cm 40 cm From Medial Malleolus 52.7 cm 50 cm From Medial Malleolus 63.8 cm 60 cm From Medial Malleolus 79 cm 70 cm From Medial Malleolus 84.9 cm Knee Joint 52.7 cm PT-OP-Q Treatments Start: 02/24/24 13:04 Freq: Status: Active Protocol: Document 03/12/24 12:59 [facility] (Rec: 03/12/24 16:29 [facility] [id number]) Lymphedema Treatment Manual Lymphatic Drainage Location chata LE's Duration 40 Comments sequential pneumatic pump opposite side of MLD Lymphedema Wrapping Other Size F Tukbigrip lower legs and size J knees and thighs Sequential Lymphedema Exercises Location trunk rotation, chata LE's Comments also Sci-Fit x 5 min to further facilitate lymphatic flow Compression Garment Assessment Compression Garment Assessment Details patient contacted [facility] regarding appointment, they are checking insurance and will schedule when able. Patient Education Other patient has ordered bandaging supplies PT-OP-R Modalities Start: 02/24/24 13:04 Freq: Status: Active Protocol: Document 03/12/24 12:59 [facility] (Rec: 03/12/24 16:29 [facility] [id number]) Compression Pump Treatment Treatment Location Left Leg Pressure Amount (mmHg) (mmHG) 45 Inflation Time (Seconds) 30 Deflation Time (Seconds) 10 Treatment Tolerance Good Treatment Comments during MLD right Right Leg Pressure Amount (mmHg) (mmHG) 45 Inflation Time (Seconds) 30 Deflation Time (Seconds) 10 Treatment Tolerance Good Treatment Comments during MLD left PT-OP-T Assessment and Plan Start: 02/24/24 13:04 Freq: Status: Active Protocol: Document 03/12/24 12:59 [facility] (Rec: 03/12/24 16:27 [facility] [id number]) Physical Therapy Assessment Assessment Summary Assessment Patient reported wound care stated wound a little smaller. Reporting high compliance to elevation, exercise, deep breathing and self massage proximally (can't reach distally). Circumferential measurements variable today. Found out no further approved PT visits with insurance, will need to modify treatments or cancel pending patient decision regarding private pay . Physical Therapy Plan Next Visit Focus/Plan Next Note Type Treatment Note Next Visit Plan Modified treatment, shorter due to running out of insurance benefits for the year. Encouraged unbandaging prior to treatment, will focus primarily on rebandaging and monitoring circumferential measurements. Patient to continue with HEP, self massage, skin care, elevation. will attempt bandaging at home. Will request sequential pneumatic pump after 30 days of conservative therapy.
--- NOTE | 2024-03-16 14:03 | PT.OTN ---
Current Diagnoses Lymphedema, not elsewhere classified (03/16/24) Physical Therapy Treatment Note PT-OP-A Visit Information Start: 02/24/24 13:04 Freq: Status: Active Protocol: Document 03/16/24 13:00 [facility] (Rec: 03/16/24 14:02 [facility] [id number]) Out-Patient Physical Therapy Visit Information Visit Information Visit Type Treatment Note Visit Start Time 12:59 Visit Stop Time 13:44 Visit Number 11 Evaluation Information Evaluation Date 01/31/24 Precautions Precautions DM, neuropathy, venous insufficiency, HTN, obesity, ARAMUBLA. Patient is 5'8, 397 lbs . PT-OP-B Current Condition Start: 02/24/24 13:04 Freq: Status: Active Protocol: Document 03/16/24 13:00 [facility] (Rec: 03/16/24 14:02 [facility] [id number]) Current Condition History of Current Condition Onset Date 2019 Current Complaints swelling bilateral LE's History of Current Condition Gradual onset and worsening swelling chata LE's especially since 2019. Diagnosed venous insufficiency and lymphedema Has worn compression stockings 25-30 for yrs due to father having bad legs and wanting to try to prevent same issue. Hasn't been seen in PT for CDT. Due to persistent and worsening edema chata LE's was referred to wound care; has been seen in wound care since 01/09/24. Doppler ordered, was negative. Boils developed on both LE's, persistent unhealed small wound remaining on left lower leg. Wound care ordered vecro compression wraps for feet and calves , reports about 40 cm circumference decrease since starting wound care. Reports severe ankylosing spondylosis, back pain, nerve damage left LE. Unable to exercise due to joint pain in all LE joints and low back. Has Nu-Step at home, min resistance tolerated but can ride for up to 1 hour . Doesn't tolerate going for walks due to joint pain. Requires use of FWW for ambulation. States he was started on an antibiotic last week by wound care. States velcro compression wraps seem too big for feet now. Interested if other option for compression, feels like compression wraps help calves but push fluid to knees and it doesn't go any further. Is interested in considering pneumatic pump for home use and receptive to discussion options for compression garments. Prior Treatments and Tests doppler last month negative for clots PT-OP-C Subjective Start: 02/24/24 13:04 Freq: Status: Active Protocol: Document 03/16/24 13:00 [facility] (Rec: 03/16/24 14:02 [facility] [id number]) OP-PT Subjective Patient Comments Patient Comments Patient planning 45 min appointments through March due to no further insurance approval. did first trial bandaging over the weekend, patient reports she did pretty well, solid B+. Has appointment with [facility] in [place] on Saturday. Continues with HEP at home using ex bike and other ex as instructed by PT. PT-OP-F Manual Assessment Start: 02/24/24 13:04 Freq: Status: Active Protocol: Document 02/24/24 14:28 [facility] (Rec: 02/24/24 13:18 [facility] [id number]) Manual Assessments Soft Tissue Assessment Soft Tissue Mobility Assessment mild reddening chata lower legs knees to ankles, min warmth. No hemosiderin staining, mild fibrosis lower legs, no elephantiasis. PT-OP-G Mobility & Gait Start: 02/24/24 13:04 Freq: Status: Active Protocol: Document 02/24/24 14:28 [facility] (Rec: 02/24/24 13:18 [facility] [id number]) OP Mobility Evaluation Bed Mobility Rolling indep,labored Supine to and from Sit indep, labored OP Gait Assessment Gait Gait Assistance Required: Independent Assistive Devices Assistive Device Front Wheeled Walker Gait Deviations General Gait Pattern Decreased Stride Length, Decreased Feet Clearance,Wide Based Gait Factors Limiting Gait Function Factors Limiting Gait Function Pain Comments Gait Comments weight of legs with lymphedema PT-OP-H Neuro Start: 02/24/24 13:04 Freq: Status: Active Protocol: Document 02/24/24 14:28 [facility] (Rec: 02/24/24 13:18 [facility] [id number]) Sensation Evaluation Gross Sensation Gross Sensation Left LE Impaired,Right LE Impaired Location Details Right Leg Light Touch Impaired Left Leg Light Touch Impaired Vital Signs Blood Pressure Sitting Blood Pressure (90/60-120/80 mmHg) 132/80 H Blood Pressure Source Manual Cuff PT-OP-J Posture/Palpation/Skin Start: 02/24/24 13:04 Freq: Status: Active Protocol: Document 02/24/24 14:28 [facility] (Rec: 02/24/24 13:18 [facility] [id number]) Palpation Assessment Location chata LE's Palpation Findings Edema,Soft Tissue Tightness Palpation Details knees, lower legs, feet Skin Assessment Edema Assessment chata LE's Edema Type Non-Pitting Edema Degree 4+ Edema Appearance Puffy,Taut Subjective Edema Description Tightness PT-OP-K Range of Motion Start: 02/24/24 13:04 Freq: Status: Active Protocol: Document 02/24/24 14:28 [facility] (Rec: 02/24/24 13:18 [facility] [id number]) Hip Goniometric Range of Motion Hip chata Comments mod dec all motions with c/o pain Knee Goniometric Range of Motion Knee chata Knee ROM WFL No Comments painful especially in weight- bearing Knee ROM Limitations Knee ROM Limitations Soft Tissue Tightness,Swelling Ankle and Foot Goniometric Range of Motion Ankle and Foot chata Ankle/Foot ROM WFL No Comments mod dec all motions Ankle and Foot ROM Limitations ROM Limitations Soft Tissue Tightness,Swelling PT-OP-N Lymphedema Start: 02/24/24 13:04 Freq: Status: Active Protocol: Document 03/16/24 13:00 [facility] (Rec: 03/16/24 14:02 [facility] [id number]) Lymphedema Measurements Lower Extremity Circumference Measurements Left Affected - no time due to need for bandaging prior to visit with [facility] in 2 days, shortened treatment time Right Affected - no time due to need for bandaging prior to visit with [facility] in 2 days PT-OP-Q Treatments Start: 02/24/24 13:04 Freq: Status: Active Protocol: Document 03/16/24 13:00 [facility] (Rec: 03/16/24 14:02 [facility] [id number]) Lymphedema Treatment Lymphedema Wrapping Body Location chata LE's Materials R: Tricofix size G, Artiflex, Comprilan (6, 8 x 2, 10x 2, 12x1) toes to upper thigh L: Coban2 system toes to knee, Tricofix size G, Artiflex, Comprilan (10, 12)knee to proximal thigh Other Size F Tukbigrip lower legs and size J knees and thighs over bandaging Sequential Lymphedema Exercises Comments HEP Other Other Further discussion garment options, PT to send email. Recomend flat knit 20-30 mm Hg pantyhose style PT-OP-R Modalities Start: 02/24/24 13:04 Freq: Status: Active Protocol: Document 03/12/24 12:59 [facility] (Rec: 03/12/24 16:29 [facility] [id number]) Compression Pump Treatment Treatment Location Left Leg Pressure Amount (mmHg) (mmHG) 45 Inflation Time (Seconds) 30 Deflation Time (Seconds) 10 Treatment Tolerance Good Treatment Comments during MLD right Right Leg Pressure Amount (mmHg) (mmHG) 45 Inflation Time (Seconds) 30 Deflation Time (Seconds) 10 Treatment Tolerance Good Treatment Comments during MLD left PT-OP-T Assessment and Plan Start: 02/24/24 13:04 Freq: Status: Active Protocol: Document 03/16/24 13:00 [facility] (Rec: 03/16/24 14:02 [facility] [id number]) Physical Therapy Assessment Impairments Impairments Activity Tolerance,Edema, Functional Mobility,Integument ,Soft Tissue Mobility Goals 2 Impairment lymphedema life impact scale 76% Impairment c/o urinary frequency and urgency every 45 min during the day and 3 times at night Short Term Goal (STG) decrease score to no greater than 60% STG Duration 03/31/24 Long-Term Goal (LTG) decrease score to no greater than 35% as measure of improved function and quality of life related to his lymphedema LTG Duration 05/26/24 1 Impairment lymphedema chata LE's Impairment pt lacks a HEP for pelvic floor strengthening Short Term Goal (STG) Patient will be instructed in all aspects of lymphedema self -care to include skin care, elevation, self-massage, self- bandaging/compression options, and lymphedema exercises. STG Duration 03/31/24 Long-Term Goal (LTG) Decrease patient?s lymphedema to a stable level (no increase or decrease greater than 1 cm over the course of 1 week), patient to be independent with all aspects of self-care for lymphedema, and will obtain appropriate compression garment for lymphedema management in the home. Consider sequential pneumatic pump. LTG Duration 05/26/24 Physical Therapy Plan Next Visit Focus/Plan Next Note Type Treatment Note Next Visit Plan circumferential measurements, chata LE bandaging. Further consultation with [facility] as needed
--- NOTE | 2024-03-18 17:32 | PT.OTN ---
Current Diagnoses Lymphedema, not elsewhere classified (03/18/24) Physical Therapy Treatment Note PT-OP-A Visit Information Start: 02/24/24 13:04 Freq: Status: Active Protocol: Document 03/18/24 13:46 [facility] (Rec: 03/18/24 14:26 [facility] [id number]) Out-Patient Physical Therapy Visit Information Visit Information Visit Type Treatment Note Visit Start Time 12:59 Visit Stop Time 13:44 Visit Number 12 Evaluation Information Evaluation Date 01/31/24 Precautions Precautions DM, neuropathy, venous insufficiency, HTN, obesity, ARAMBULA. Patient is 5'8, 397 lbs . PT-OP-B Current Condition Start: 02/24/24 13:04 Freq: Status: Active Protocol: Document 03/18/24 13:46 [facility] (Rec: 03/18/24 14:26 [facility] [id number]) Current Condition History of Current Condition Onset Date 2019 Current Complaints swelling bilateral LE's History of Current Condition Gradual onset and worsening swelling chata LE's especially since 2019. Diagnosed venous insufficiency and lymphedema Has worn compression stockings 25-30 for yrs due to father having bad legs and wanting to try to prevent same issue. Hasn't been seen in PT for CDT. Due to persistent and worsening edema chata LE's was referred to wound care; has been seen in wound care since 01/09/24. Doppler ordered, was negative. Boils developed on both LE's, persistent unhealed small wound remaining on left lower leg. Wound care ordered vecro compression wraps for feet and calves , reports about 40 cm circumference decrease since starting wound care. Reports severe ankylosing spondylosis, back pain, nerve damage left LE. Unable to exercise due to joint pain in all LE joints and low back. Has Nu-Step at home, min resistance tolerated but can ride for up to 1 hour . Doesn't tolerate going for walks due to joint pain. Requires use of FWW for ambulation. States he was started on an antibiotic last week by wound care. States velcro compression wraps seem too big for feet now. Interested if other option for compression, feels like compression wraps help calves but push fluid to knees and it doesn't go any further. Is interested in considering pneumatic pump for home use and receptive to discussion options for compression garments. Prior Treatments and Tests doppler last month negative for clots Treatment Goals Patient/Caregiver Goals decrease edema and be able to self manage lymphedema at home . Prior Functional Status Baseline Function- ADL's Independent Baseline Function- Mobility Independent Baseline Function- Gait indep Baseline Function- Work/School retired Baseline Function- Recreation/Hobbies able to do projects around the house Current Functional Impairments (Reported) Functional Limitations- ADL's painful Functional Limitations- Mobility/Gait painful, requires use of FWW Functional Limitations- Work/School retired Functional Limitations- Recreation/ unable to do house projects as Hobbies previously Personal Factors Other Personal Factors That May Effect obesity 388 lbs, DM, HTN Therapy/Recovery PT-OP-C Subjective Start: 02/24/24 13:04 Freq: Status: Active Protocol: Document 03/18/24 13:46 [facility] (Rec: 03/18/24 14:26 [facility] [id number]) OP-PT Subjective Patient Comments Patient Comments Saw wound care, report it's being stubbord about healing, changed dressing. Went to [facility], recommended thigh high with silicone bicycle shorts . Continues to have pain along outside of right LE and side to side of knee, outside of foot, interrupts his sleep. PT-OP-F Manual Assessment Start: 02/24/24 13:04 Freq: Status: Active Protocol: Document 02/24/24 14:28 [facility] (Rec: 02/24/24 13:18 [facility] [id number]) Manual Assessments Soft Tissue Assessment Soft Tissue Mobility Assessment mild reddening chata lower legs knees to ankles, min warmth. No hemosiderin staining, mild fibrosis lower legs, no elephantiasis. PT-OP-G Mobility & Gait Start: 02/24/24 13:04 Freq: Status: Active Protocol: Document 02/24/24 14:28 [facility] (Rec: 02/24/24 13:18 [facility] [id number]) OP Mobility Evaluation Bed Mobility Rolling indep,labored Supine to and from Sit indep, labored OP Gait Assessment Gait Gait Assistance Required: Independent Assistive Devices Assistive Device Front Wheeled Walker Gait Deviations General Gait Pattern Decreased Stride Length, Decreased Feet Clearance,Wide Based Gait Factors Limiting Gait Function Factors Limiting Gait Function Pain Comments Gait Comments weight of legs with lymphedema PT-OP-H Neuro Start: 02/24/24 13:04 Freq: Status: Active Protocol: Document 02/24/24 14:28 [facility] (Rec: 02/24/24 13:18 [facility] [id number]) Sensation Evaluation Gross Sensation Gross Sensation Left LE Impaired,Right LE Impaired Location Details Right Leg Light Touch Impaired Left Leg Light Touch Impaired Vital Signs Blood Pressure Sitting Blood Pressure (90/60-120/80 mmHg) 132/80 H Blood Pressure Source Manual Cuff PT-OP-J Posture/Palpation/Skin Start: 02/24/24 13:04 Freq: Status: Active Protocol: Document 02/24/24 14:28 [facility] (Rec: 02/24/24 13:18 [facility] [id number]) Palpation Assessment Location chata LE's Palpation Findings Edema,Soft Tissue Tightness Palpation Details knees, lower legs, feet Skin Assessment Edema Assessment chata LE's Edema Type Non-Pitting Edema Degree 4+ Edema Appearance Puffy,Taut Subjective Edema Description Tightness PT-OP-K Range of Motion Start: 02/24/24 13:04 Freq: Status: Active Protocol: Document 02/24/24 14:28 [facility] (Rec: 02/24/24 13:18 [facility] [id number]) Hip Goniometric Range of Motion Hip chata Comments mod dec all motions with c/o pain Knee Goniometric Range of Motion Knee chata Knee ROM WFL No Comments painful especially in weight- bearing Knee ROM Limitations Knee ROM Limitations Soft Tissue Tightness,Swelling Ankle and Foot Goniometric Range of Motion Ankle and Foot chata Ankle/Foot ROM WFL No Comments mod dec all motions Ankle and Foot ROM Limitations ROM Limitations Soft Tissue Tightness,Swelling PT-OP-N Lymphedema Start: 02/24/24 13:04 Freq: Status: Active Protocol: Document 03/18/24 13:46 [facility] (Rec: 03/18/24 14:26 [facility] [id number]) Lymphedema Measurements Lower Extremity Circumference Measurements Left Affected - taken in wound care Right Affected - taken in wound care. PT-OP-Q Treatments Start: 02/24/24 13:04 Freq: Status: Active Protocol: Document 03/18/24 13:46 [facility] (Rec: 03/18/24 14:26 [facility] [id number]) Lymphedema Treatment Lymphedema Wrapping Body Location chata LE's Materials R: Tricofix size G, Artiflex, Comprilan (6, 8 x 2, 10x 2, 12x1) toes to upper thigh L: Coban2 system toes to knee, Tricofix size G, Artiflex, Comprilan (10, 12)knee to proximal thigh Other Size F Tukbigrip lower legs and size J knees and thighs over bandaging Sequential Lymphedema Exercises Comments HEP Compression Garment Assessment Compression Garment Assessment Details patient contacted [facility] regarding appointment, they are checking insurance and will schedule when able. Patient Education Other patient has ordered bandaging supplies Other Other Further discussion garment options, PT to send email. Recomend flat knit 20-30 mm Hg pantyhose style PT-OP-R Modalities Start: 02/24/24 13:04 Freq: Status: Active Protocol: Document 03/12/24 12:59 [facility] (Rec: 03/12/24 16:29 [facility] [id number]) Compression Pump Treatment Treatment Location Left Leg Pressure Amount (mmHg) (mmHG) 45 Inflation Time (Seconds) 30 Deflation Time (Seconds) 10 Treatment Tolerance Good Treatment Comments during MLD right Right Leg Pressure Amount (mmHg) (mmHG) 45 Inflation Time (Seconds) 30 Deflation Time (Seconds) 10 Treatment Tolerance Good Treatment Comments during MLD left PT-OP-T Assessment and Plan Start: 02/24/24 13:04 Freq: Status: Active Protocol: Document 03/18/24 13:46 [facility] (Rec: 03/18/24 14:26 [facility] [id number]) Physical Therapy Assessment Impairments Impairments Activity Tolerance,Edema, Functional Mobility,Integument ,Soft Tissue Mobility Goals 2 Impairment lymphedema life impact scale 76% Impairment c/o urinary frequency and urgency every 45 min during the day and 3 times at night Short Term Goal (STG) decrease score to no greater than 60% STG Duration 03/31/24 Paper Sorter Goal (LTG) decrease score to no greater than 35% as measure of improved function and quality of life related to his lymphedema LTG Duration 05/26/24 1 Impairment lymphedema chata LE's Impairment pt lacks a HEP for pelvic floor strengthening Short Term Goal (STG) Patient will be instructed in all aspects of lymphedema self -care to include skin care, elevation, self-massage, self- bandaging/compression options, and lymphedema exercises. STG Duration 03/31/24 Group Home Goal (LTG) Decrease patient?s lymphedema to a stable level (no increase or decrease greater than 1 cm over the course of 1 week), patient to be independent with all aspects of self-care for lymphedema, and will obtain appropriate compression garment for lymphedema management in the home. Consider sequential pneumatic pump. LTG Duration 05/26/24 Assessment Summary Assessment Patient reported wound care stated wound a little smaller. Reporting high compliance to elevation, exercise, deep breathing and self massage proximally (can't reach distally). Circumferential measurements variable today. Found out no further approved PT visits with insurance, will need to modify treatments or cancel pending patient decision regarding private pay . Physical Therapy Plan Frequency and Duration Frequency of Treatment 20 visits Duration of treatment (weeks) 12 Plan of Care Start Date 02/24/24 Plan of Care End Date 04/25/24 Therapeutic Interventions Therapeutic Interventions Home Exercise Program, Lymphedema Management,Manual Therapy,Patient/Caregiver Education,Self-Care/Home Management,Soft Tissue Mobilization,Taping, Therapeutic Activities, Therapeutic Exercises Modalities Vasopneumatic Devices Next Visit Focus/Plan Next Note Type Treatment Note Next Visit Plan circumferential measurements, chata LE bandaging.
--- NOTE | 2024-03-23 16:03 | PT.OTN ---
Current Diagnoses Lymphedema, not elsewhere classified (03/23/24) Physical Therapy Treatment Note PT-OP-A Visit Information Start: 02/24/24 13:04 Freq: Status: Active Protocol: Document 03/23/24 12:55 [facility] (Rec: 03/23/24 13:43 [facility] [id number]) Out-Patient Physical Therapy Visit Information Visit Information Visit Type Treatment Note Visit Start Time 12:54 Visit Stop Time 13:44 Visit Number 13 Evaluation Information Evaluation Date 01/31/24 Precautions Precautions DM, neuropathy, venous insufficiency, HTN, obesity, ARAMBULA. Patient is 5'8, 397 lbs . PT-OP-B Current Condition Start: 02/24/24 13:04 Freq: Status: Active Protocol: Document 03/23/24 12:55 [facility] (Rec: 03/23/24 13:43 [facility] [id number]) Current Condition History of Current Condition Onset Date 2019 Current Complaints swelling bilateral LE's History of Current Condition Gradual onset and worsening swelling chata LE's especially since 2019. Diagnosed venous insufficiency and lymphedema Has worn compression stockings 25-30 for yrs due to father having bad legs and wanting to try to prevent same issue. Hasn't been seen in PT for CDT. Due to persistent and worsening edema chata LE's was referred to wound care; has been seen in wound care since 01/09/24. Doppler ordered, was negative. Boils developed on both LE's, persistent unhealed small wound remaining on left lower leg. Wound care ordered vecro compression wraps for feet and calves , reports about 40 cm circumference decrease since starting wound care. Reports severe ankylosing spondylosis, back pain, nerve damage left LE. Unable to exercise due to joint pain in all LE joints and low back. Has Nu-Step at home, min resistance tolerated but can ride for up to 1 hour . Doesn't tolerate going for walks due to joint pain. Requires use of FWW for ambulation. States he was started on an antibiotic last week by wound care. States velcro compression wraps seem too big for feet now. Interested if other option for compression, feels like compression wraps help calves but push fluid to knees and it doesn't go any further. Is interested in considering pneumatic pump for home use and receptive to discussion options for compression garments. Prior Treatments and Tests doppler last month negative for clots Personal Factors Other Personal Factors That May Effect obesity 388 lbs, DM, HTN Therapy/Recovery PT-OP-C Subjective Start: 02/24/24 13:04 Freq: Status: Active Protocol: Document 03/23/24 13:00 [facility] (Rec: 03/23/24 16:03 [facility] [id number]) OP-PT Subjective Patient Comments Patient Comments Patient reports his is physically having difficulty with bandaging him due to back and knee pain. PT-OP-F Manual Assessment Start: 02/24/24 13:04 Freq: Status: Active Protocol: Document 02/24/24 14:28 [facility] (Rec: 02/24/24 13:18 [facility] [id number]) Manual Assessments Soft Tissue Assessment Soft Tissue Mobility Assessment mild reddening chata lower legs knees to ankles, min warmth. No hemosiderin staining, mild fibrosis lower legs, no elephantiasis. PT-OP-G Mobility & Gait Start: 02/24/24 13:04 Freq: Status: Active Protocol: Document 02/24/24 14:28 [facility] (Rec: 02/24/24 13:18 [facility] [id number]) OP Mobility Evaluation Bed Mobility Rolling indep,labored Supine to and from Sit indep, labored OP Gait Assessment Gait Gait Assistance Required: Independent Assistive Devices Assistive Device Front Wheeled Walker Gait Deviations General Gait Pattern Decreased Stride Length, Decreased Feet Clearance,Wide Based Gait Factors Limiting Gait Function Factors Limiting Gait Function Pain Comments Gait Comments weight of legs with lymphedema PT-OP-H Neuro Start: 02/24/24 13:04 Freq: Status: Active Protocol: Document 02/24/24 14:28 [facility] (Rec: 02/24/24 13:18 [facility] [id number]) Sensation Evaluation Gross Sensation Gross Sensation Left LE Impaired,Right LE Impaired Location Details Right Leg Light Touch Impaired Left Leg Light Touch Impaired Vital Signs Blood Pressure Sitting Blood Pressure (90/60-120/80 mmHg) 132/80 H Blood Pressure Source Manual Cuff PT-OP-J Posture/Palpation/Skin Start: 02/24/24 13:04 Freq: Status: Active Protocol: Document 02/24/24 14:28 [facility] (Rec: 02/24/24 13:18 [facility] [id number]) Palpation Assessment Location chata LE's Palpation Findings Edema,Soft Tissue Tightness Palpation Details knees, lower legs, feet Skin Assessment Edema Assessment chata LE's Edema Type Non-Pitting Edema Degree 4+ Edema Appearance Puffy,Taut Subjective Edema Description Tightness PT-OP-K Range of Motion Start: 02/24/24 13:04 Freq: Status: Active Protocol: Document 02/24/24 14:28 [facility] (Rec: 02/24/24 13:18 [facility] [id number]) Hip Goniometric Range of Motion Hip chata Comments mod dec all motions with c/o pain Knee Goniometric Range of Motion Knee chata Knee ROM WFL No Comments painful especially in weight- bearing Knee ROM Limitations Knee ROM Limitations Soft Tissue Tightness,Swelling Ankle and Foot Goniometric Range of Motion Ankle and Foot chata Ankle/Foot ROM WFL No Comments mod dec all motions Ankle and Foot ROM Limitations ROM Limitations Soft Tissue Tightness,Swelling PT-OP-N Lymphedema Start: 02/24/24 13:04 Freq: Status: Active Protocol: Document 03/18/24 13:46 [facility] (Rec: 03/18/24 14:26 [facility] [id number]) Lymphedema Measurements Lower Extremity Circumference Measurements Left Affected - taken in wound care Right Affected - taken in wound care. PT-OP-Q Treatments Start: 02/24/24 13:04 Freq: Status: Active Protocol: Document 03/23/24 12:55 [facility] (Rec: 03/23/24 13:43 [facility] [id number]) Lymphedema Treatment Lymphedema Wrapping Body Location chata LE's Materials R: Tricofix size G, Artiflex, Comprilan (6, 8 x 2, 10x 2, 12x1) toes to upper thigh L: Coban2 system toes to knee, Comprilan toes to upper thighs with Tricofix size G, Artiflex, Comprilan (10, 12) knee to proximal thigh Other Size F Tukbigrip lower legs and size J knees and thighs over bandaging Sequential Lymphedema Exercises Comments HEP PT-OP-R Modalities Start: 02/24/24 13:04 Freq: Status: Active Protocol: Document 03/12/24 12:59 [facility] (Rec: 03/12/24 16:29 [facility] [id number]) Compression Pump Treatment Treatment Location Left Leg Pressure Amount (mmHg) (mmHG) 45 Inflation Time (Seconds) 30 Deflation Time (Seconds) 10 Treatment Tolerance Good Treatment Comments during MLD right Right Leg Pressure Amount (mmHg) (mmHG) 45 Inflation Time (Seconds) 30 Deflation Time (Seconds) 10 Treatment Tolerance Good Treatment Comments during MLD left PT-OP-T Assessment and Plan Start: 02/24/24 13:04 Freq: Status: Active Protocol: Document 03/23/24 12:55 [facility] (Rec: 03/23/24 13:43 [facility] [id number]) Physical Therapy Assessment Impairments Impairments Activity Tolerance,Edema, Functional Mobility,Integument ,Soft Tissue Mobility Goals 2 Impairment lymphedema life impact scale 76% Short Term Goal (STG) decrease score to no greater than 60% STG Duration 03/31/24 Alf Goal (LTG) decrease score to no greater than 35% as measure of improved function and quality of life related to his lymphedema LTG Duration 05/26/24 1 Impairment lymphedema chata LE's Impairment pt lacks a HEP for pelvic floor strengthening Short Term Goal (STG) Patient will be instructed in all aspects of lymphedema self -care to include skin care, elevation, self-massage, self- bandaging/compression options, and lymphedema exercises. STG Duration 03/31/24 Diesel Service Apprentice Goal (LTG) Decrease patient?s lymphedema to a stable level (no increase or decrease greater than 1 cm over the course of 1 week), patient to be independent with all aspects of self-care for lymphedema, and will obtain appropriate compression garment for lymphedema management in the home. Consider sequential pneumatic pump. LTG Duration 05/26/24 Assessment Summary Assessment shortened PT session due to insurance issues as with last session, focused on bandaging LE's, modified as above today with use of short stretch bandages over Coban 2 left lower leg to further increase distal compression due to poor wound healing left LE's. Patient reporting his is physically having difficulty with bandaging his legs due to back and knee pain; discussed next session try bandaging with patient supine. Physical Therapy Plan Frequency and Duration Frequency of Treatment 20 visits Duration of treatment (weeks) 12 Plan of Care Start Date 02/24/24 Plan of Care End Date 04/25/24 Therapeutic Interventions Therapeutic Interventions Home Exercise Program, Lymphedema Management,Manual Therapy,Patient/Caregiver Education,Self-Care/Home Management,Soft Tissue Mobilization,Taping, Therapeutic Activities, Therapeutic Exercises Modalities Vasopneumatic Devices Next Visit Focus/Plan Next Note Type Treatment Note Next Visit Plan circumferential measurements, chata LE bandaging in supine trial.
--- NOTE | 2024-03-24 12:42 | PT.OTN ---
Current Diagnoses Lymphedema, not elsewhere classified (03/24/24) Physical Therapy Treatment Note PT-OP-A Visit Information Start: 02/24/24 13:04 Freq: Status: Active Protocol: Document 03/24/24 10:44 SAK (Rec: 03/24/24 10:47 SAK [id number]) Out-Patient Physical Therapy Visit Information Visit Information Visit Type Treatment Note Visit Start Time 10:45 Visit Stop Time 11:30 Visit Number 14 Evaluation Information Evaluation Date 01/31/24 Precautions Precautions DM, neuropathy, venous insufficiency, HTN, obesity, ARAMBULA. Patient is 5'8, 397 lbs . PT-OP-B Current Condition Start: 02/24/24 13:04 Freq: Status: Active Protocol: Document 03/24/24 10:44 SAK (Rec: 03/24/24 10:47 SAK [id number]) Current Condition History of Current Condition Onset Date 2019 Current Complaints swelling bilateral LE's History of Current Condition Gradual onset and worsening swelling chata LE's especially since 2019. Diagnosed venous insufficiency and lymphedema Has worn compression stockings 25-30 for yrs due to father having bad legs and wanting to try to prevent same issue. Hasn't been seen in PT for CDT. Due to persistent and worsening edema chata LE's was referred to wound care; has been seen in wound care since 01/09/24. Doppler ordered, was negative. Boils developed on both LE's, persistent unhealed small wound remaining on left lower leg. Wound care ordered vecro compression wraps for feet and calves , reports about 40 cm circumference decrease since starting wound care. Reports severe ankylosing spondylosis, back pain, nerve damage left LE. Unable to exercise due to joint pain in all LE joints and low back. Has Nu-Step at home, min resistance tolerated but can ride for up to 1 hour . Doesn't tolerate going for walks due to joint pain. Requires use of FWW for ambulation. States he was started on an antibiotic last week by wound care. States velcro compression wraps seem too big for feet now. Interested if other option for compression, feels like compression wraps help calves but push fluid to knees and it doesn't go any further. Is interested in considering pneumatic pump for home use and receptive to discussion options for compression garments. Prior Treatments and Tests doppler last month negative for clots PT-OP-C Subjective Start: 02/24/24 13:04 Freq: Status: Active Protocol: Document 03/24/24 10:44 SAK (Rec: 03/24/24 10:47 [facility] [id number]) OP-PT Subjective Patient Comments Patient Comments Reports left leg had burning sensation last night, difficult to sleep PT-OP-F Manual Assessment Start: 02/24/24 13:04 Freq: Status: Active Protocol: Document 02/24/24 14:28 [facility] (Rec: 02/24/24 13:18 [facility] [id number]) Manual Assessments Soft Tissue Assessment Soft Tissue Mobility Assessment mild reddening chata lower legs knees to ankles, min warmth. No hemosiderin staining, mild fibrosis lower legs, no elephantiasis. PT-OP-G Mobility & Gait Start: 02/24/24 13:04 Freq: Status: Active Protocol: Document 02/24/24 14:28 [facility] (Rec: 02/24/24 13:18 [facility] [id number]) OP Mobility Evaluation Bed Mobility Rolling indep,labored Supine to and from Sit indep, labored OP Gait Assessment Gait Gait Assistance Required: Independent Assistive Devices Assistive Device Front Wheeled Walker Gait Deviations General Gait Pattern Decreased Stride Length, Decreased Feet Clearance,Wide Based Gait Factors Limiting Gait Function Factors Limiting Gait Function Pain Comments Gait Comments weight of legs with lymphedema PT-OP-H Neuro Start: 02/24/24 13:04 Freq: Status: Active Protocol: Document 02/24/24 14:28 [facility] (Rec: 02/24/24 13:18 [facility] [id number]) Sensation Evaluation Gross Sensation Gross Sensation Left LE Impaired,Right LE Impaired Location Details Right Leg Light Touch Impaired Left Leg Light Touch Impaired Vital Signs Blood Pressure Sitting Blood Pressure (90/60-120/80 mmHg) 132/80 H Blood Pressure Source Manual Cuff PT-OP-J Posture/Palpation/Skin Start: 02/24/24 13:04 Freq: Status: Active Protocol: Document 02/24/24 14:28 [facility] (Rec: 02/24/24 13:18 [facility] [id number]) Palpation Assessment Location chata LE's Palpation Findings Edema,Soft Tissue Tightness Palpation Details knees, lower legs, feet Skin Assessment Edema Assessment chata LE's Edema Type Non-Pitting Edema Degree 4+ Edema Appearance Puffy,Taut Subjective Edema Description Tightness PT-OP-K Range of Motion Start: 02/24/24 13:04 Freq: Status: Active Protocol: Document 02/24/24 14:28 SAK (Rec: 02/24/24 13:18 [facility] [id number]) Hip Goniometric Range of Motion Hip chata Comments mod dec all motions with c/o pain Knee Goniometric Range of Motion Knee chata Knee ROM WFL No Comments painful especially in weight- bearing Knee ROM Limitations Knee ROM Limitations Soft Tissue Tightness,Swelling Ankle and Foot Goniometric Range of Motion Ankle and Foot chata Ankle/Foot ROM WFL No Comments mod dec all motions Ankle and Foot ROM Limitations ROM Limitations Soft Tissue Tightness,Swelling PT-OP-N Lymphedema Start: 02/24/24 13:04 Freq: Status: Active Protocol: Document 03/24/24 10:44 [facility] (Rec: 03/24/24 11:26 [facility] [id number]) Lymphedema Measurements Lower Extremity Circumference Measurements Left Affected 60 cm From Medial Malleolus 63.2 cm 70 cm From Medial Malleolus 78.5 cm Knee Joint 51.2 cm - taken in wound care Right Affected MT Heads 25 cm Mid-foot 26 cm Medial Malleolus 32.5 cm 10 cm From Medial Malleolus 31.3 cm 20 cm From Medial Malleolus 42 cm 30 cm From Medial Malleolus 48 cm 40 cm From Medial Malleolus 52 cm 50 cm From Medial Malleolus 61.8 cm 60 cm From Medial Malleolus 75.7 cm PT-OP-Q Treatments Start: 02/24/24 13:04 Freq: Status: Active Protocol: Document 03/24/24 10:44 SAK (Rec: 03/24/24 10:47 [facility] [id number]) Lymphedema Treatment Lymphedema Wrapping Body Location chata LE's Materials R: Tricofix size G, Artiflex, Comprilan (6, 8 x 2, 10x 2, 12x1) toes to upper thigh L: Coban2 system toes to knee, Comprilan toes to upper thighs with Tricofix size G, Artiflex, Comprilan (10, 12) knee to proximal thigh Other Size F Tukbigrip lower legs and size J knees and thighs over bandaging Sequential Lymphedema Exercises Comments HEP PT-OP-R Modalities Start: 02/24/24 13:04 Freq: Status: Active Protocol: Document 03/12/24 12:59 SAK (Rec: 03/12/24 16:29 [facility] [id number]) Compression Pump Treatment Treatment Location Left Leg Pressure Amount (mmHg) (mmHG) 45 Inflation Time (Seconds) 30 Deflation Time (Seconds) 10 Treatment Tolerance Good Treatment Comments during MLD right Right Leg Pressure Amount (mmHg) (mmHG) 45 Inflation Time (Seconds) 30 Deflation Time (Seconds) 10 Treatment Tolerance Good Treatment Comments during MLD left PT-OP-T Assessment and Plan Start: 02/24/24 13:04 Freq: Status: Active Protocol: Document 03/24/24 10:44 [facility] (Rec: 03/24/24 10:47 [facility] [id number]) Physical Therapy Assessment Impairments Impairments Activity Tolerance,Edema, Functional Mobility,Integument ,Soft Tissue Mobility Goals 2 Impairment lymphedema life impact scale 76% Impairment c/o urinary frequency and urgency every 45 min during the day and 3 times at night Short Term Goal (STG) decrease score to no greater than 60% STG Duration 03/31/24 Shelter Goal (LTG) decrease score to no greater than 35% as measure of improved function and quality of life related to his lymphedema LTG Duration 05/26/24 1 Impairment lymphedema chata LE's Impairment pt lacks a HEP for pelvic floor strengthening Short Term Goal (STG) Patient will be instructed in all aspects of lymphedema self -care to include skin care, elevation, self-massage, self- bandaging/compression options, and lymphedema exercises. STG Duration 03/31/24 Shelter Goal (LTG) Decrease patient?s lymphedema to a stable level (no increase or decrease greater than 1 cm over the course of 1 week), patient to be independent with all aspects of self-care for lymphedema, and will obtain appropriate compression garment for lymphedema management in the home. Consider sequential pneumatic pump. LTG Duration 05/26/24 Assessment Summary Assessment Measurements variable, overall stable. Patient not to be seen for 1 week in PT so further instruction in options for he and bandaging including putting padding under the velcro foot wraps if having difficulty with bandaging himself. Hopeful for receiving compression garments soon. Physical Therapy Plan Frequency and Duration Frequency of Treatment 20 visits Duration of treatment (weeks) 12 Plan of Care Start Date 02/24/24 Plan of Care End Date 04/25/24 Therapeutic Interventions Therapeutic Interventions Home Exercise Program, Lymphedema Management,Manual Therapy,Patient/Caregiver Education,Self-Care/Home Management,Soft Tissue Mobilization,Taping, Therapeutic Activities, Therapeutic Exercises Modalities Vasopneumatic Devices Next Visit Focus/Plan Next Note Type Treatment Note Next Visit Plan Continue CDT, assure good fit of compression garments
--- NOTE | 2024-04-06 15:21 | PT.OTN ---
Current Diagnoses Lymphedema, not elsewhere classified (04/06/24) Physical Therapy Treatment Note PT-OP-A Visit Information Start: 02/24/24 13:04 Freq: Status: Active Protocol: Document 04/06/24 10:44 SAK (Rec: 04/06/24 10:52 [facility] [id number]) Out-Patient Physical Therapy Visit Information Visit Information Visit Type Treatment Note Visit Start Time 10:45 Visit Stop Time 11:30 Visit Number 15 Evaluation Information Evaluation Date 01/31/24 Precautions Precautions DM, neuropathy, venous insufficiency, HTN, obesity, ARAMBULA. Patient is 5'8, 397 lbs . PT-OP-B Current Condition Start: 02/24/24 13:04 Freq: Status: Active Protocol: Document 04/06/24 10:44 SAK (Rec: 04/06/24 10:52 SAK [id number]) Current Condition History of Current Condition Onset Date 2019 Current Complaints swelling bilateral LE's History of Current Condition Gradual onset and worsening swelling chata LE's especially since 2019. Diagnosed venous insufficiency and lymphedema Has worn compression stockings 25-30 for yrs due to father having bad legs and wanting to try to prevent same issue. Hasn't been seen in PT for CDT. Due to persistent and worsening edema chata LE's was referred to wound care; has been seen in wound care since 01/09/24. Doppler ordered, was negative. Boils developed on both LE's, persistent unhealed small wound remaining on left lower leg. Wound care ordered vecro compression wraps for feet and calves , reports about 40 cm circumference decrease since starting wound care. Reports severe ankylosing spondylosis, back pain, nerve damage left LE. Unable to exercise due to joint pain in all LE joints and low back. Has Nu-Step at home, min resistance tolerated but can ride for up to 1 hour . Doesn't tolerate going for walks due to joint pain. Requires use of FWW for ambulation. States he was started on an antibiotic last week by wound care. States velcro compression wraps seem too big for feet now. Interested if other option for compression, feels like compression wraps help calves but push fluid to knees and it doesn't go any further. Is interested in considering pneumatic pump for home use and receptive to discussion options for compression garments. Prior Treatments and Tests doppler last month negative for clots PT-OP-C Subjective Start: 02/24/24 13:04 Freq: Status: Active Protocol: Document 04/06/24 10:44 SAK (Rec: 04/06/24 10:52 [facility] [id number]) OP-PT Subjective Patient Comments Patient Comments No garments have come in yet. States he and his continue to bandage. States it has been a struggle managing the bandaging, hurts 's back. Still interested in sequential pneumatic pump. At times has to remove bandaging in middle of the night due to discomfort. Has been doing self massage, elevation, skin care, and exercise. Reports wound care states his wound left reynolds has started to heal. PT-OP-F Manual Assessment Start: 02/24/24 13:04 Freq: Status: Active Protocol: Document 02/24/24 14:28 SAK (Rec: 02/24/24 13:18 [facility] [id number]) Manual Assessments Soft Tissue Assessment Soft Tissue Mobility Assessment mild reddening chata lower legs knees to ankles, min warmth. No hemosiderin staining, mild fibrosis lower legs, no elephantiasis. PT-OP-G Mobility & Gait Start: 02/24/24 13:04 Freq: Status: Active Protocol: Document 02/24/24 14:28 SAK (Rec: 02/24/24 13:18 [facility] [id number]) OP Mobility Evaluation Bed Mobility Rolling indep,labored Supine to and from Sit indep, labored OP Gait Assessment Gait Gait Assistance Required: Independent Assistive Devices Assistive Device Front Wheeled Walker Gait Deviations General Gait Pattern Decreased Stride Length, Decreased Feet Clearance,Wide Based Gait Factors Limiting Gait Function Factors Limiting Gait Function Pain Comments Gait Comments weight of legs with lymphedema PT-OP-H Neuro Start: 02/24/24 13:04 Freq: Status: Active Protocol: Document 02/24/24 14:28 SAK (Rec: 02/24/24 13:18 [facility] [id number]) Sensation Evaluation Gross Sensation Gross Sensation Left LE Impaired,Right LE Impaired Location Details Right Leg Light Touch Impaired Left Leg Light Touch Impaired Vital Signs Blood Pressure Sitting Blood Pressure (90/60-120/80 mmHg) 132/80 H Blood Pressure Source Manual Cuff PT-OP-J Posture/Palpation/Skin Start: 02/24/24 13:04 Freq: Status: Active Protocol: Document 02/24/24 14:28 SAK (Rec: 02/24/24 13:18 [facility] [id number]) Palpation Assessment Location chata LE's Palpation Findings Edema,Soft Tissue Tightness Palpation Details knees, lower legs, feet Skin Assessment Edema Assessment chata LE's Edema Type Non-Pitting Edema Degree 4+ Edema Appearance Puffy,Taut Subjective Edema Description Tightness PT-OP-K Range of Motion Start: 02/24/24 13:04 Freq: Status: Active Protocol: Document 02/24/24 14:28 [facility] (Rec: 02/24/24 13:18 [facility] [id number]) Hip Goniometric Range of Motion Hip chata Comments mod dec all motions with c/o pain Knee Goniometric Range of Motion Knee chata Knee ROM WFL No Comments painful especially in weight- bearing Knee ROM Limitations Knee ROM Limitations Soft Tissue Tightness,Swelling Ankle and Foot Goniometric Range of Motion Ankle and Foot chata Ankle/Foot ROM WFL No Comments mod dec all motions Ankle and Foot ROM Limitations ROM Limitations Soft Tissue Tightness,Swelling PT-OP-N Lymphedema Start: 02/24/24 13:04 Freq: Status: Active Protocol: Document 04/06/24 10:44 [facility] (Rec: 04/06/24 12:21 [facility] [id number]) Lymphedema Measurements Lower Extremity Circumference Measurements Left Affected MT Heads 26 cm Mid-foot 25.5 cm Medial Malleolus 29 cm 10 cm From Medial Malleolus 33.3 cm 20 cm From Medial Malleolus 44 cm 30 cm From Medial Malleolus 50 cm 40 cm From Medial Malleolus 52.3 cm 50 cm From Medial Malleolus 65.3 cm 60 cm From Medial Malleolus 76.8 cm 70 cm From Medial Malleolus 78.5 cm Knee Joint 55.1 cm Right Affected MT Heads 25.3 cm Mid-foot 25.8 cm Medial Malleolus 30.3 cm 10 cm From Medial Malleolus 36 cm 20 cm From Medial Malleolus 44.8 cm 30 cm From Medial Malleolus 48 cm 40 cm From Medial Malleolus 55.7 cm 50 cm From Medial Malleolus 70.8 cm 60 cm From Medial Malleolus 81.2 cm 70 cm From Medial Malleolus 84.4 cm Knee Joint 55.7 cm PT-OP-Q Treatments Start: 02/24/24 13:04 Freq: Status: Active Protocol: Document 04/06/24 10:44 [facility] (Rec: 04/06/24 12:21 [facility] [id number]) Lymphedema Treatment Manual Lymphatic Drainage Location chata LE's Duration 40 Comments sequential pneumatic pump opposite side of MLD Lymphedema Wrapping Body Location chata LE's Materials R: Tricofix size G, Artiflex, Comprilan (6, 8 x 2, 10x 2, 12x1) toes to upper thigh L: Coban2 system toes to knee, Comprilan toes to upper thighs with Tricofix size G, Artiflex, Comprilan (10, 12) knee to proximal thigh Other Size F Tukbigrip lower legs and size J knees and thighs over bandaging Sequential Lymphedema Exercises Comments HEP PT-OP-R Modalities Start: 02/24/24 13:04 Freq: Status: Active Protocol: Document 04/06/24 10:44 [facility] (Rec: 04/06/24 12:21 [facility] [id number]) Compression Pump Treatment Treatment Location Left Leg Pressure Amount (mmHg) (mmHG) 45 Inflation Time (Seconds) 30 Deflation Time (Seconds) 10 Treatment Tolerance Good Treatment Comments during MLD right Right Leg Pressure Amount (mmHg) (mmHG) 45 Inflation Time (Seconds) 30 Deflation Time (Seconds) 10 Treatment Tolerance Good Treatment Comments during MLD left PT-OP-T Assessment and Plan Start: 02/24/24 13:04 Freq: Status: Active Protocol: Document 04/06/24 10:44 [facility] (Rec: 04/06/24 10:52 [facility] [id number]) Physical Therapy Assessment Impairments Impairments Activity Tolerance,Edema, Functional Mobility,Integument ,Soft Tissue Mobility Goals 2 Impairment lymphedema life impact scale 76% Impairment c/o urinary frequency and urgency every 45 min during the day and 3 times at night Short Term Goal (STG) decrease score to no greater than 60% STG Duration 03/31/24 Special Events Assistant Goal (LTG) decrease score to no greater than 35% as measure of improved function and quality of life related to his lymphedema LTG Duration 05/26/24 1 Impairment lymphedema chata LE's Impairment pt lacks a HEP for pelvic floor strengthening Short Term Goal (STG) Patient will be instructed in all aspects of lymphedema self -care to include skin care, elevation, self-massage, self- bandaging/compression options, and lymphedema exercises. STG Duration 03/31/24 [facility] Goal (LTG) Decrease patient?s lymphedema to a stable level (no increase or decrease greater than 1 cm over the course of 1 week), patient to be independent with all aspects of self-care for lymphedema, and will obtain appropriate compression garment for lymphedema management in the home. Consider sequential pneumatic pump. LTG Duration 05/26/24 Assessment Summary Assessment Patient started PT 02/24/24. He has completed more than 30 days of conservative therapy including skin care, elevation , manual lymphatic drainage, lymphedema exercise and compression. Despite this he is having difficulty managing his lymphedema and is at high risk for further complications including additional wounds. He is compliant to his self care with the assistance of his . Feel he would benefit highly from the use of a sequential pneumatic pump in the home. Physical Therapy Plan Frequency and Duration Frequency of Treatment 20 visits Duration of treatment (weeks) 12 Plan of Care Start Date 02/24/24 Plan of Care End Date 04/25/24 Therapeutic Interventions Therapeutic Interventions Home Exercise Program, Lymphedema Management,Manual Therapy,Patient/Caregiver Education,Self-Care/Home Management,Soft Tissue Mobilization,Taping, Therapeutic Activities, Therapeutic Exercises Modalities Vasopneumatic Devices Next Visit Focus/Plan Next Note Type Treatment Note Next Visit Plan Request sequential pneumatic pump. Continue CDT, assusre good fit of compression garments when they arrive.
--- NOTE | 2024-04-14 16:33 | PT.OTN ---
Current Diagnoses Lymphedema, not elsewhere classified (04/14/24) Physical Therapy Treatment Note PT-OP-A Visit Information Start: 02/24/24 13:04 Freq: Status: Active Protocol: Document 04/14/24 12:59 SAK (Rec: 04/14/24 13:55 [facility] [id number]) Out-Patient Physical Therapy Visit Information Visit Information Visit Type Treatment Note Visit Start Time 12:59 Visit Stop Time 14:30 Visit Number 16 Evaluation Information Evaluation Date 01/31/24 Precautions Precautions DM, neuropathy, venous insufficiency, HTN, obesity, ARAMBULA. Patient is 5'8, 397 lbs . PT-OP-B Current Condition Start: 02/24/24 13:04 Freq: Status: Active Protocol: Document 04/14/24 12:59 SAK (Rec: 04/14/24 13:55 [facility] [id number]) Current Condition History of Current Condition Onset Date 2019 Current Complaints swelling bilateral LE's History of Current Condition Gradual onset and worsening swelling chata LE's especially since 2019. Diagnosed venous insufficiency and lymphedema Has worn compression stockings 25-30 for yrs due to father having bad legs and wanting to try to prevent same issue. Hasn't been seen in PT for CDT. Due to persistent and worsening edema chata LE's was referred to wound care; has been seen in wound care since 01/09/24. Doppler ordered, was negative. Boils developed on both LE's, persistent unhealed small wound remaining on left lower leg. Wound care ordered vecro compression wraps for feet and calves , reports about 40 cm circumference decrease since starting wound care. Reports severe ankylosing spondylosis, back pain, nerve damage left LE. Unable to exercise due to joint pain in all LE joints and low back. Has Nu-Step at home, min resistance tolerated but can ride for up to 1 hour . Doesn't tolerate going for walks due to joint pain. Requires use of FWW for ambulation. States he was started on an antibiotic last week by wound care. States velcro compression wraps seem too big for feet now. Interested if other option for compression, feels like compression wraps help calves but push fluid to knees and it doesn't go any further. Is interested in considering pneumatic pump for home use and receptive to discussion options for compression garments. Prior Treatments and Tests doppler last month negative for clots PT-OP-C Subjective Start: 02/24/24 13:04 Freq: Status: Active Protocol: Document 04/14/24 12:59 SAK (Rec: 04/14/24 13:55 [facility] [id number]) OP-PT Subjective Patient Comments Patient Comments Reports bandages on thighs slid down within a few hours after last session. He and struggling with self bandaging; has to do due to patient physical limitations but patient's has back pain and doing the bandaging hurts her back despite PT instruction and trial different positions. He has appt with [facility] to be fit with his compression garment tomorrow. Reports wound 85% healed; saw wound care a couple hours ago. PT-OP-F Manual Assessment Start: 02/24/24 13:04 Freq: Status: Active Protocol: Document 02/24/24 14:28 SAK (Rec: 02/24/24 13:18 [facility] [id number]) Manual Assessments Soft Tissue Assessment Soft Tissue Mobility Assessment mild reddening chata lower legs knees to ankles, min warmth. No hemosiderin staining, mild fibrosis lower legs, no elephantiasis. PT-OP-G Mobility & Gait Start: 02/24/24 13:04 Freq: Status: Active Protocol: Document 02/24/24 14:28 [facility] (Rec: 02/24/24 13:18 [facility] [id number]) OP Mobility Evaluation Bed Mobility Rolling indep,labored Supine to and from Sit indep, labored OP Gait Assessment Gait Gait Assistance Required: Independent Assistive Devices Assistive Device Front Wheeled Walker Gait Deviations General Gait Pattern Decreased Stride Length, Decreased Feet Clearance,Wide Based Gait Factors Limiting Gait Function Factors Limiting Gait Function Pain Comments Gait Comments weight of legs with lymphedema PT-OP-H Neuro Start: 02/24/24 13:04 Freq: Status: Active Protocol: Document 02/24/24 14:28 SAK (Rec: 02/24/24 13:18 [facility] [id number]) Sensation Evaluation Gross Sensation Gross Sensation Left LE Impaired,Right LE Impaired Location Details Right Leg Light Touch Impaired Left Leg Light Touch Impaired Vital Signs Blood Pressure Sitting Blood Pressure (90/60-120/80 mmHg) 132/80 H Blood Pressure Source Manual Cuff PT-OP-J Posture/Palpation/Skin Start: 02/24/24 13:04 Freq: Status: Active Protocol: Document 02/24/24 14:28 SAK (Rec: 02/24/24 13:18 [facility] [id number]) Palpation Assessment Location chata LE's Palpation Findings Edema,Soft Tissue Tightness Palpation Details knees, lower legs, feet Skin Assessment Edema Assessment chata LE's Edema Type Non-Pitting Edema Degree 4+ Edema Appearance Puffy,Taut Subjective Edema Description Tightness PT-OP-K Range of Motion Start: 02/24/24 13:04 Freq: Status: Active Protocol: Document 02/24/24 14:28 [facility] (Rec: 02/24/24 13:18 [facility] [id number]) Hip Goniometric Range of Motion Hip chata Comments mod dec all motions with c/o pain Knee Goniometric Range of Motion Knee chata Knee ROM WFL No Comments painful especially in weight- bearing Knee ROM Limitations Knee ROM Limitations Soft Tissue Tightness,Swelling Ankle and Foot Goniometric Range of Motion Ankle and Foot chata Ankle/Foot ROM WFL No Comments mod dec all motions Ankle and Foot ROM Limitations ROM Limitations Soft Tissue Tightness,Swelling PT-OP-N Lymphedema Start: 02/24/24 13:04 Freq: Status: Active Protocol: Document 04/14/24 12:59 [facility] (Rec: 04/14/24 13:55 [facility] [id number]) Lymphedema Measurements Lower Extremity Circumference Measurements Left Affected MT Heads 26.3 cm Mid-foot 26 cm Medial Malleolus 29.8 cm 10 cm From Medial Malleolus 34.2 cm 20 cm From Medial Malleolus 43.2 cm 30 cm From Medial Malleolus 49.2 cm 40 cm From Medial Malleolus 56 cm 50 cm From Medial Malleolus 71.2 cm 60 cm From Medial Malleolus 83.5 cm 70 cm From Medial Malleolus 90 cm Knee Joint 56 cm Right Affected MT Heads 25.8 cm Mid-foot 25.8 cm Medial Malleolus 31 cm 10 cm From Medial Malleolus 34 cm 20 cm From Medial Malleolus 43.5 cm 30 cm From Medial Malleolus 50 cm 40 cm From Medial Malleolus 59.8 cm 50 cm From Medial Malleolus 72.5 cm 60 cm From Medial Malleolus 89.4 cm 70 cm From Medial Malleolus 92 cm Knee Joint 59 cm Comments Lymphedema Comments Patient has purplish discoloration, bruising anterior left reynolds, no break in skin; when showed he states he didn't see that when he was in wound care. Requested RN from wound care (Trixie) come see; she advised to monitor for worsening, if becomes painful remove bandaging (Coban) and seek medical attention. Patient took photo. PT-OP-Q Treatments Start: 02/24/24 13:04 Freq: Status: Active Protocol: Document 04/14/24 12:59 [facility] (Rec: 04/14/24 16:32 [facility] [id number]) Self-Care/Home Management Treatment Education Other Education monitor bruising on left reynolds per RN recommendation, email PT regarding compression garment appointment at [facility]. Lymphedema Treatment Manual Lymphatic Drainage Location chata LE's Duration 40 Comments sequential pneumatic pump opposite side of MLD Lymphedema Wrapping Body Location chata LE's Materials R: Tricofix size G, Artiflex, Comprilan (6, 8 x 2, 10x 2, 12x1) toes to upper thigh L: Coban2 system toes to knee, Comprilan toes to upper thighs with Tricofix size G, Artiflex, Comprilan (10, 12) knee to proximal thigh Other Size F Tukbigrip lower leg right; patient and to do left and size J knees and thighs over bandaging at home due to running out of time today PT-OP-R Modalities Start: 02/24/24 13:04 Freq: Status: Active Protocol: Document 04/14/24 12:59 [facility] (Rec: 04/14/24 16:32 [facility] [id number]) Compression Pump Treatment Treatment Location Left Leg Pressure Amount (mmHg) (mmHG) 45 Inflation Time (Seconds) 30 Deflation Time (Seconds) 10 Treatment Tolerance Good Treatment Comments during MLD right Right Leg Pressure Amount (mmHg) (mmHG) 45 Inflation Time (Seconds) 30 Deflation Time (Seconds) 10 Treatment Tolerance Good Treatment Comments during MLD left PT-OP-T Assessment and Plan Start: 02/24/24 13:04 Freq: Status: Active Protocol: Document 04/14/24 12:59 [facility] (Rec: 04/14/24 13:55 [facility] [id number]) Physical Therapy Assessment Impairments Impairments Activity Tolerance,Edema, Functional Mobility,Integument ,Soft Tissue Mobility Goals 2 Impairment lymphedema life impact scale 76% Impairment c/o urinary frequency and urgency every 45 min during the day and 3 times at night Short Term Goal (STG) decrease score to no greater than 60% STG Duration 03/31/24 Scanning Manager Goal (LTG) decrease score to no greater than 35% as measure of improved function and quality of life related to his lymphedema LTG Duration 05/26/24 1 Impairment lymphedema chata LE's Impairment pt lacks a HEP for pelvic floor strengthening Short Term Goal (STG) Patient will be instructed in all aspects of lymphedema self -care to include skin care, elevation, self-massage, self- bandaging/compression options, and lymphedema exercises. STG Duration 03/31/24 Prison Goal (LTG) Decrease patient?s lymphedema to a stable level (no increase or decrease greater than 1 cm over the course of 1 week), patient to be independent with all aspects of self-care for lymphedema, and will obtain appropriate compression garment for lymphedema management in the home. Consider sequential pneumatic pump. LTG Duration 05/26/24 Assessment Summary Assessment Patient circumferential measurements increased approx 1 cm most areas, as much as 5 cm proximal thighs due to lack of compression. Will be seeing [facility] tomorrow to be fit with compression garments including bike short type garment. Bruising left anterior reynolds as noted above, consulted wound care nurse. Physical Therapy Plan Frequency and Duration Frequency of Treatment 20 visits Duration of treatment (weeks) 12 Plan of Care Start Date 02/24/24 Plan of Care End Date 04/25/24 Therapeutic Interventions Therapeutic Interventions Home Exercise Program, Lymphedema Management,Manual Therapy,Patient/Caregiver Education,Self-Care/Home Management,Soft Tissue Mobilization,Taping, Therapeutic Activities, Therapeutic Exercises Modalities Vasopneumatic Devices Next Visit Focus/Plan Next Note Type Treatment Note Next Visit Plan Continue CDT, assess fit of compression garments.
--- NOTE | 2024-04-16 16:15 | PT.OTN ---
Current Diagnoses Lymphedema, not elsewhere classified (04/16/24) Physical Therapy Treatment Note PT-OP-A Visit Information Start: 02/24/24 13:04 Freq: Status: Active Protocol: Document 04/16/24 12:59 SAK (Rec: 04/16/24 14:30 [facility] [id number]) Out-Patient Physical Therapy Visit Information Visit Information Visit Type Treatment Note Visit Start Time 12:59 Visit Stop Time 14:30 Visit Number 16 Evaluation Information Evaluation Date 01/31/24 Precautions Precautions DM, neuropathy, venous insufficiency, HTN, obesity, ARAMBULA. Patient is 5'8, 397 lbs . PT-OP-B Current Condition Start: 02/24/24 13:04 Freq: Status: Active Protocol: Document 04/16/24 12:59 SAK (Rec: 04/16/24 14:30 [facility] [id number]) Current Condition History of Current Condition Onset Date 2019 Current Complaints swelling bilateral LE's History of Current Condition Gradual onset and worsening swelling chata LE's especially since 2019. Diagnosed venous insufficiency and lymphedema Has worn compression stockings 25-30 for yrs due to father having bad legs and wanting to try to prevent same issue. Hasn't been seen in PT for CDT. Due to persistent and worsening edema chata LE's was referred to wound care; has been seen in wound care since 01/09/24. Doppler ordered, was negative. Boils developed on both LE's, persistent unhealed small wound remaining on left lower leg. Wound care ordered vecro compression wraps for feet and calves , reports about 40 cm circumference decrease since starting wound care. Reports severe ankylosing spondylosis, back pain, nerve damage left LE. Unable to exercise due to joint pain in all LE joints and low back. Has Nu-Step at home, min resistance tolerated but can ride for up to 1 hour . Doesn't tolerate going for walks due to joint pain. Requires use of FWW for ambulation. States he was started on an antibiotic last week by wound care. States velcro compression wraps seem too big for feet now. Interested if other option for compression, feels like compression wraps help calves but push fluid to knees and it doesn't go any further. Is interested in considering pneumatic pump for home use and receptive to discussion options for compression garments. Prior Treatments and Tests doppler last month negative for clots PT-OP-C Subjective Start: 02/24/24 13:04 Freq: Status: Active Protocol: Document 04/16/24 12:59 [facility] (Rec: 04/16/24 14:30 [facility] [id number]) OP-PT Subjective Patient Comments Patient Comments Had appointment at [facility], thigh high compression stockings fit ok, though wrinkled and uncomfortable behind knees. Shorts didn't fit, being resized. They also recomended Sigvarus Ready wrap for night time option. PT-OP-F Manual Assessment Start: 02/24/24 13:04 Freq: Status: Active Protocol: Document 02/24/24 14:28 [facility]AK (Rec: 02/24/24 13:18 [facility] [id number]) Manual Assessments Soft Tissue Assessment Soft Tissue Mobility Assessment mild reddening chata lower legs knees to ankles, min warmth. No hemosiderin staining, mild fibrosis lower legs, no elephantiasis. PT-OP-G Mobility & Gait Start: 02/24/24 13:04 Freq: Status: Active Protocol: Document 02/24/24 14:28 [facility] (Rec: 02/24/24 13:18 [facility] [id number]) OP Mobility Evaluation Bed Mobility Rolling indep,labored Supine to and from Sit indep, labored OP Gait Assessment Gait Gait Assistance Required: Independent Assistive Devices Assistive Device Front Wheeled Walker Gait Deviations General Gait Pattern Decreased Stride Length, Decreased Feet Clearance,Wide Based Gait Factors Limiting Gait Function Factors Limiting Gait Function Pain Comments Gait Comments weight of legs with lymphedema PT-OP-H Neuro Start: 02/24/24 13:04 Freq: Status: Active Protocol: Document 02/24/24 14:28 [facility]AK (Rec: 02/24/24 13:18 [facility] [id number]) Sensation Evaluation Gross Sensation Gross Sensation Left LE Impaired,Right LE Impaired Location Details Right Leg Light Touch Impaired Left Leg Light Touch Impaired Vital Signs Blood Pressure Sitting Blood Pressure (90/60-120/80 mmHg) 132/80 H Blood Pressure Source Manual Cuff PT-OP-J Posture/Palpation/Skin Start: 02/24/24 13:04 Freq: Status: Active Protocol: Document 02/24/24 14:28 [facility]AK (Rec: 02/24/24 13:18 [facility] [id number]) Palpation Assessment Location chata LE's Palpation Findings Edema,Soft Tissue Tightness Palpation Details knees, lower legs, feet Skin Assessment Edema Assessment chata LE's Edema Type Non-Pitting Edema Degree 4+ Edema Appearance Puffy,Taut Subjective Edema Description Tightness PT-OP-K Range of Motion Start: 02/24/24 13:04 Freq: Status: Active Protocol: Document 02/24/24 14:28 [facility] (Rec: 02/24/24 13:18 [facility] [id number]) Hip Goniometric Range of Motion Hip chata Comments mod dec all motions with c/o pain Knee Goniometric Range of Motion Knee chata Knee ROM WFL No Comments painful especially in weight- bearing Knee ROM Limitations Knee ROM Limitations Soft Tissue Tightness,Swelling Ankle and Foot Goniometric Range of Motion Ankle and Foot chata Ankle/Foot ROM WFL No Comments mod dec all motions Ankle and Foot ROM Limitations ROM Limitations Soft Tissue Tightness,Swelling PT-OP-N Lymphedema Start: 02/24/24 13:04 Freq: Status: Active Protocol: Document 04/16/24 12:59 [facility] (Rec: 04/16/24 14:30 [facility] [id number]) Lymphedema Measurements Lower Extremity Circumference Measurements Left Affected MT Heads 26.3 cm Mid-foot 26.2 cm Medial Malleolus 33.8 cm 10 cm From Medial Malleolus 37.7 cm 20 cm From Medial Malleolus 46.3 cm 30 cm From Medial Malleolus 48.8 cm 40 cm From Medial Malleolus 52 cm 50 cm From Medial Malleolus 66.8 cm 60 cm From Medial Malleolus 79.8 cm 70 cm From Medial Malleolus 87.8 cm Knee Joint 52 cm PT-OP-Q Treatments Start: 02/24/24 13:04 Freq: Status: Active Protocol: Document 04/16/24 12:59 [facility] (Rec: 04/16/24 14:30 [facility] [id number]) Therapeutic Activity Therapeutic Activity donning/doffing compression stockings Comments as below under lymphedema Lymphedema Treatment Manual Lymphatic Drainage Location chata LE's Duration 40 Comments sequential pneumatic pump opposite side of MLD Compression Garment Assessment Compression Garment Assessment Details Attempted donning right LE compression stocking with donning aid, able to get donned to knee but unable to get to fit well at knee, bunching of fabric even after MLD treatment, pt, and PT working togeter. When he arrived from appointment at [facility] with garments donned was c/o bunching and discomfort behind his knees. Agreed to remove and patient and to bandage at home or consider compression wrap use until resizing of compression garments PT-OP-R Modalities Start: 02/24/24 13:04 Freq: Status: Active Protocol: Document 04/16/24 12:59 [facility] (Rec: 04/16/24 14:30 [facility] [id number]) Compression Pump Treatment Treatment Location Left Leg Pressure Amount (mmHg) (mmHG) 45 Inflation Time (Seconds) 30 Deflation Time (Seconds) 10 Treatment Tolerance Good Treatment Comments during MLD right Right Leg Pressure Amount (mmHg) (mmHG) 45 Inflation Time (Seconds) 30 Deflation Time (Seconds) 10 Treatment Tolerance Good Treatment Comments during MLD left PT-OP-T Assessment and Plan Start: 02/24/24 13:04 Freq: Status: Active Protocol: Document 04/16/24 12:59 [facility] (Rec: 04/16/24 14:30 [facility] [id number]) Physical Therapy Assessment Impairments Impairments Activity Tolerance,Edema, Functional Mobility,Integument ,Soft Tissue Mobility Goals 2 Impairment lymphedema life impact scale 76% Impairment c/o urinary frequency and urgency every 45 min during the day and 3 times at night Short Term Goal (STG) decrease score to no greater than 60% STG Duration 03/31/24 Mortgage Loan Computation Clerk Goal (LTG) decrease score to no greater than 35% as measure of improved function and quality of life related to his lymphedema LTG Duration 05/26/24 1 Impairment lymphedema chata LE's Impairment pt lacks a HEP for pelvic floor strengthening Short Term Goal (STG) Patient will be instructed in all aspects of lymphedema self -care to include skin care, elevation, self-massage, self- bandaging/compression options, and lymphedema exercises. STG Duration 03/31/24 Mortgage Loan Computation Clerk Goal (LTG) Decrease patient?s lymphedema to a stable level (no increase or decrease greater than 1 cm over the course of 1 week), patient to be independent with all aspects of self-care for lymphedema, and will obtain appropriate compression garment for lymphedema management in the home. Consider sequential pneumatic pump. LTG Duration 05/26/24 Assessment Summary Assessment Compression garments appear too small, unable to distribute material behind his knee and it is bunching and causing redness behind his knee and reports feels abrasive to his skin. Unable to pull fully up. Contacted [facility] regarding fit difficulties. Patient and to bandage at home due to lack of time after treatment today. He will also contact [facility]. Physical Therapy Plan Frequency and Duration Frequency of Treatment 20 visits Duration of treatment (weeks) 12 Plan of Care Start Date 02/24/24 Plan of Care End Date 04/25/24 Therapeutic Interventions Therapeutic Interventions Home Exercise Program, Lymphedema Management,Manual Therapy,Patient/Caregiver Education,Self-Care/Home Management,Soft Tissue Mobilization,Taping, Therapeutic Activities, Therapeutic Exercises Modalities Vasopneumatic Devices Next Visit Focus/Plan Next Note Type Treatment Note Next Visit Plan Continue CDT, consult regarding compression garments , problem solve compression.
--- NOTE | 2024-04-21 12:26 | PT-OP ANOTE ---
cancelled due to ill
--- NOTE | 2024-04-23 16:08 | PT.OTN ---
Current Diagnoses Lymphedema, not elsewhere classified (04/23/24) Physical Therapy Treatment Note PT-OP-A Visit Information Start: 02/24/24 13:04 Freq: Status: Active Protocol: Document 04/23/24 12:56 [facility]AK (Rec: 04/23/24 13:42 [facility] [id number]) Out-Patient Physical Therapy Visit Information Visit Information Visit Type Treatment Note Visit Start Time 13:00 Visit Stop Time 14:25 Visit Number 17 Evaluation Information Evaluation Date 01/31/24 Precautions Precautions DM, neuropathy, venous insufficiency, HTN, obesity, ARAMBULA. Patient is 5'8, 397 lbs . PT-OP-B Current Condition Start: 02/24/24 13:04 Freq: Status: Active Protocol: Document 04/23/24 12:56 SAK (Rec: 04/23/24 13:42 [facility] [id number]) Current Condition History of Current Condition Onset Date 2019 Current Complaints swelling bilateral LE's History of Current Condition Gradual onset and worsening swelling chata LE's especially since 2019. Diagnosed venous insufficiency and lymphedema Has worn compression stockings 25-30 for yrs due to father having bad legs and wanting to try to prevent same issue. Hasn't been seen in PT for CDT. Due to persistent and worsening edema chata LE's was referred to wound care; has been seen in wound care since 01/09/24. Doppler ordered, was negative. Boils developed on both LE's, persistent unhealed small wound remaining on left lower leg. Wound care ordered vecro compression wraps for feet and calves , reports about 40 cm circumference decrease since starting wound care. Reports severe ankylosing spondylosis, back pain, nerve damage left LE. Unable to exercise due to joint pain in all LE joints and low back. Has Nu-Step at home, min resistance tolerated but can ride for up to 1 hour . Doesn't tolerate going for walks due to joint pain. Requires use of FWW for ambulation. States he was started on an antibiotic last week by wound care. States velcro compression wraps seem too big for feet now. Interested if other option for compression, feels like compression wraps help calves but push fluid to knees and it doesn't go any further. Is interested in considering pneumatic pump for home use and receptive to discussion options for compression garments. Prior Treatments and Tests doppler last month negative for clots PT-OP-C Subjective Start: 02/24/24 13:04 Freq: Status: Active Protocol: Document 04/23/24 12:56 SAK (Rec: 04/23/24 13:42 [facility] [id number]) OP-PT Subjective Patient Comments Patient Comments Did not have appointment at [facility]; not all wraps delievered yet. Emailed with faizan Ray who asked about variability of measurements and recommended full leg wraps . Wearing Tubigrip under calf Juzo wraps. PT-OP-F Manual Assessment Start: 02/24/24 13:04 Freq: Status: Active Protocol: Document 02/24/24 14:28 SAK (Rec: 02/24/24 13:18 [facility] [id number]) Manual Assessments Soft Tissue Assessment Soft Tissue Mobility Assessment mild reddening chata lower legs knees to ankles, min warmth. No hemosiderin staining, mild fibrosis lower legs, no elephantiasis. PT-OP-G Mobility & Gait Start: 02/24/24 13:04 Freq: Status: Active Protocol: Document 02/24/24 14:28 [facility] (Rec: 02/24/24 13:18 [facility] [id number]) OP Mobility Evaluation Bed Mobility Rolling indep,labored Supine to and from Sit indep, labored OP Gait Assessment Gait Gait Assistance Required: Independent Assistive Devices Assistive Device Front Wheeled Walker Gait Deviations General Gait Pattern Decreased Stride Length, Decreased Feet Clearance,Wide Based Gait Factors Limiting Gait Function Factors Limiting Gait Function Pain Comments Gait Comments weight of legs with lymphedema PT-OP-H Neuro Start: 02/24/24 13:04 Freq: Status: Active Protocol: Document 02/24/24 14:28 [facility] (Rec: 02/24/24 13:18 [facility] [id number]) Sensation Evaluation Gross Sensation Gross Sensation Left LE Impaired,Right LE Impaired Location Details Right Leg Light Touch Impaired Left Leg Light Touch Impaired Vital Signs Blood Pressure Sitting Blood Pressure (90/60-120/80 mmHg) 132/80 H Blood Pressure Source Manual Cuff PT-OP-J Posture/Palpation/Skin Start: 02/24/24 13:04 Freq: Status: Active Protocol: Document 02/24/24 14:28 [facility]AK (Rec: 02/24/24 13:18 [facility] [id number]) Palpation Assessment Location chata LE's Palpation Findings Edema,Soft Tissue Tightness Palpation Details knees, lower legs, feet Skin Assessment Edema Assessment chata LE's Edema Type Non-Pitting Edema Degree 4+ Edema Appearance Puffy,Taut Subjective Edema Description Tightness PT-OP-K Range of Motion Start: 02/24/24 13:04 Freq: Status: Active Protocol: Document 02/24/24 14:28 [facility] (Rec: 02/24/24 13:18 [facility] [id number]) Hip Goniometric Range of Motion Hip chata Comments mod dec all motions with c/o pain Knee Goniometric Range of Motion Knee chata Knee ROM WFL No Comments painful especially in weight- bearing Knee ROM Limitations Knee ROM Limitations Soft Tissue Tightness,Swelling Ankle and Foot Goniometric Range of Motion Ankle and Foot chata Ankle/Foot ROM WFL No Comments mod dec all motions Ankle and Foot ROM Limitations ROM Limitations Soft Tissue Tightness,Swelling PT-OP-N Lymphedema Start: 02/24/24 13:04 Freq: Status: Active Protocol: Document 04/23/24 12:56 [facility] (Rec: 04/23/24 13:42 [facility] [id number]) Lymphedema Measurements Lower Extremity Circumference Measurements Left Affected MT Heads 25.3 cm Mid-foot 26.5 cm Medial Malleolus 30.5 cm 10 cm From Medial Malleolus 34.7 cm 20 cm From Medial Malleolus 44.6 cm 30 cm From Medial Malleolus 48.7 cm 40 cm From Medial Malleolus 58.7 cm 50 cm From Medial Malleolus 69.5 cm 60 cm From Medial Malleolus 79.7 cm 70 cm From Medial Malleolus 86.5 cm Knee Joint 54.3 cm Right Affected MT Heads 25 cm Mid-foot 25.7 cm Medial Malleolus 30.7 cm 10 cm From Medial Malleolus 34.4 cm 20 cm From Medial Malleolus 43.6 cm 30 cm From Medial Malleolus 47.3 cm 40 cm From Medial Malleolus 59.8 cm 50 cm From Medial Malleolus 67.9 cm 60 cm From Medial Malleolus 80.8 cm 70 cm From Medial Malleolus 85.5 cm Knee Joint 52.5 cm PT-OP-Q Treatments Start: 02/24/24 13:04 Freq: Status: Active Protocol: Document 04/23/24 12:56 [facility] (Rec: 04/23/24 13:42 [facility] [id number]) Lymphedema Treatment Manual Lymphatic Drainage Location chata LE's Duration 40 Comments sequential pneumatic pump opposite side of MLD Lymphedema Wrapping Body Location chata LE's Materials Size F Tubigrip toes to knees, covered with Juzo compression wraps. Size G Tricofix knees to groinn with Artiflex and comprilan held on with Juzo Compression wrap thigh components. Compression Garment Assessment Compression Garment Assessment Details patient having full length leg wraps ordered PT-OP-R Modalities Start: 02/24/24 13:04 Freq: Status: Active Protocol: Document 04/23/24 12:56 [facility] (Rec: 04/23/24 13:42 [facility] [id number]) Compression Pump Treatment Treatment Location Left Leg Pressure Amount (mmHg) (mmHG) 45 Inflation Time (Seconds) 30 Deflation Time (Seconds) 10 Treatment Tolerance Good Treatment Comments during MLD right Right Leg Pressure Amount (mmHg) (mmHG) 45 Inflation Time (Seconds) 30 Deflation Time (Seconds) 10 Treatment Tolerance Good Treatment Comments during MLD left PT-OP-T Assessment and Plan Start: 02/24/24 13:04 Freq: Status: Active Protocol: Document 04/23/24 12:56 [facility] (Rec: 04/23/24 13:42 [facility] [id number]) Physical Therapy Assessment Goals 2 Impairment lymphedema life impact scale 76% Impairment c/o urinary frequency and urgency every 45 min during the day and 3 times at night Short Term Goal (STG) decrease score to no greater than 60% STG Duration 03/31/24 Longterm Goal (LTG) decrease score to no greater than 35% as measure of improved function and quality of life related to his lymphedema LTG Duration 05/26/24 1 Impairment lymphedema chata LE's Impairment pt lacks a HEP for pelvic floor strengthening Short Term Goal (STG) Patient will be instructed in all aspects of lymphedema self -care to include skin care, elevation, self-massage, self- bandaging/compression options, and lymphedema exercises. STG Duration 03/31/24 Longterm Goal (LTG) Decrease patient?s lymphedema to a stable level (no increase or decrease greater than 1 cm over the course of 1 week), patient to be independent with all aspects of self-care for lymphedema, and will obtain appropriate compression garment for lymphedema management in the home. Consider sequential pneumatic pump. LTG Duration 05/26/24 Assessment Summary Assessment Compliant with all aspects of self management except challenged to elevate legs above his heart, awaiting approval for compression pump and new decision after consult with fitter for full length velcro wrap garments after poor fit stockings. Currently wearing Tubigrip under Juzo wraps lower legs, nothing on thighs. Did bring Juzo thigh wraps and wanted PT advice on potentially using to hold compression wraps up. No wraps for knees. Patient reports difficulty getting legs elevated above his heart. PT recommends adjiustable bed to more easily elevate legs due to good response to elevation in PT. present for session and received further instruction in bandaging and application of compression wraps (Juzo velcro); she demonstrated improved understanding especially of options to layer compression. Physical Therapy Plan Frequency and Duration Frequency of Treatment 20 visits Duration of treatment (weeks) 12 Plan of Care Start Date 02/24/24 Plan of Care End Date 04/25/24 Therapeutic Interventions Therapeutic Interventions Home Exercise Program, Lymphedema Management,Manual Therapy,Patient/Caregiver Education,Self-Care/Home Management,Soft Tissue Mobilization,Taping, Therapeutic Activities, Therapeutic Exercises Modalities Vasopneumatic Devices Next Visit Focus/Plan Next Note Type Treatment Note Next Visit Plan Evaluate response to modified compression today, continue CDT. Patient to see wound care tomorrow.
--- NOTE | 2024-04-28 16:42 | PT.OTN ---
Current Diagnoses Lymphedema, not elsewhere classified (04/28/24) Physical Therapy Treatment Note PT-OP-A Visit Information Start: 02/24/24 13:04 Freq: Status: Active Protocol: Document 04/28/24 13:00 [facility] (Rec: 04/28/24 13:44 [facility] [id number]) Out-Patient Physical Therapy Visit Information Visit Information Visit Type Treatment Note Visit Start Time 13:01 Visit Stop Time 14:25 Visit Number 18 Evaluation Information Evaluation Date 01/31/24 Precautions Precautions DM, neuropathy, venous insufficiency, HTN, obesity, ARAMBULA. Patient is 5'8, 397 lbs . PT-OP-B Current Condition Start: 02/24/24 13:04 Freq: Status: Active Protocol: Document 04/28/24 13:00 [facility] (Rec: 04/28/24 13:44 [facility] [id number]) Current Condition History of Current Condition Onset Date 2019 Current Complaints swelling bilateral LE's History of Current Condition Gradual onset and worsening swelling chata LE's especially since 2019. Diagnosed venous insufficiency and lymphedema Has worn compression stockings 25-30 for yrs due to father having bad legs and wanting to try to prevent same issue. Hasn't been seen in PT for CDT. Due to persistent and worsening edema chata LE's was referred to wound care; has been seen in wound care since 01/09/24. Doppler ordered, was negative. Boils developed on both LE's, persistent unhealed small wound remaining on left lower leg. Wound care ordered vecro compression wraps for feet and calves , reports about 40 cm circumference decrease since starting wound care. Reports severe ankylosing spondylosis, back pain, nerve damage left LE. Unable to exercise due to joint pain in all LE joints and low back. Has Nu-Step at home, min resistance tolerated but can ride for up to 1 hour . Doesn't tolerate going for walks due to joint pain. Requires use of FWW for ambulation. States he was started on an antibiotic last week by wound care. States velcro compression wraps seem too big for feet now. Interested if other option for compression, feels like compression wraps help calves but push fluid to knees and it doesn't go any further. Is interested in considering pneumatic pump for home use and receptive to discussion options for compression garments. Prior Treatments and Tests doppler last month negative for clots PT-OP-C Subjective Start: 02/24/24 13:04 Freq: Status: Active Protocol: Document 04/28/24 13:00 [facility] (Rec: 04/28/24 13:44 [facility] [id number]) OP-PT Subjective Patient Comments Patient Comments thigh wraps still not staying up. Bummed the compression stockings didn't work. Hopeful velcro wraps will work ok; just cant seem to get the right angle with donning, have been unsuccesful at donning himself. Has appointment at [facility] on Saturday for compression wraps. Feet puffy because hasn't had any compression on today yet, left early for work. For compression this week compression had been 1x and 2x Juzo calf wraps, foot wraps ( not for a couple days because was hurting his feet at night .) Hasn't ordered adjustable bed base yet. Discharged from wound care last Saturday. PT-OP-F Manual Assessment Start: 02/24/24 13:04 Freq: Status: Active Protocol: Document 02/24/24 14:28 [facility] (Rec: 02/24/24 13:18 [facility] [id number]) Manual Assessments Soft Tissue Assessment Soft Tissue Mobility Assessment mild reddening chata lower legs knees to ankles, min warmth. No hemosiderin staining, mild fibrosis lower legs, no elephantiasis. PT-OP-G Mobility & Gait Start: 02/24/24 13:04 Freq: Status: Active Protocol: Document 02/24/24 14:28 [facility] (Rec: 02/24/24 13:18 [facility] [id number]) OP Mobility Evaluation Bed Mobility Rolling indep,labored Supine to and from Sit indep, labored OP Gait Assessment Gait Gait Assistance Required: Independent Assistive Devices Assistive Device Front Wheeled Walker Gait Deviations General Gait Pattern Decreased Stride Length, Decreased Feet Clearance,Wide Based Gait Factors Limiting Gait Function Factors Limiting Gait Function Pain Comments Gait Comments weight of legs with lymphedema PT-OP-H Neuro Start: 02/24/24 13:04 Freq: Status: Active Protocol: Document 02/24/24 14:28 [facility] (Rec: 02/24/24 13:18 [facility] [id number]) Sensation Evaluation Gross Sensation Gross Sensation Left LE Impaired,Right LE Impaired Location Details Right Leg Light Touch Impaired Left Leg Light Touch Impaired Vital Signs Blood Pressure Sitting Blood Pressure (90/60-120/80 mmHg) 132/80 H Blood Pressure Source Manual Cuff PT-OP-J Posture/Palpation/Skin Start: 02/24/24 13:04 Freq: Status: Active Protocol: Document 02/24/24 14:28 [facility] (Rec: 02/24/24 13:18 [facility] [id number]) Palpation Assessment Location chata LE's Palpation Findings Edema,Soft Tissue Tightness Palpation Details knees, lower legs, feet Skin Assessment Edema Assessment chata LE's Edema Type Non-Pitting Edema Degree 4+ Edema Appearance Puffy,Taut Subjective Edema Description Tightness PT-OP-K Range of Motion Start: 02/24/24 13:04 Freq: Status: Active Protocol: Document 02/24/24 14:28 [facility] (Rec: 02/24/24 13:18 [facility] [id number]) Hip Goniometric Range of Motion Hip chata Comments mod dec all motions with c/o pain Knee Goniometric Range of Motion Knee chata Knee ROM WFL No Comments painful especially in weight- bearing Knee ROM Limitations Knee ROM Limitations Soft Tissue Tightness,Swelling Ankle and Foot Goniometric Range of Motion Ankle and Foot chata Ankle/Foot ROM WFL No Comments mod dec all motions Ankle and Foot ROM Limitations ROM Limitations Soft Tissue Tightness,Swelling PT-OP-N Lymphedema Start: 02/24/24 13:04 Freq: Status: Active Protocol: Document 04/28/24 13:00 [facility] (Rec: 04/28/24 13:44 [facility] [id number]) Lymphedema Measurements Lower Extremity Circumference Measurements Left Affected MT Heads 26.2 cm Mid-foot 27.2 cm Medial Malleolus 30.8 cm 10 cm From Medial Malleolus 34.5 cm 20 cm From Medial Malleolus 44.8 cm 30 cm From Medial Malleolus 51.5 cm 40 cm From Medial Malleolus 62.2 cm 50 cm From Medial Malleolus 70.8 cm 60 cm From Medial Malleolus 80.7 cm 70 cm From Medial Malleolus 86 cm Knee Joint 55.1 cm Right Affected MT Heads 27.6 cm Mid-foot 27.5 cm Medial Malleolus 30.2 cm 10 cm From Medial Malleolus 35 cm 20 cm From Medial Malleolus 44.8 cm 30 cm From Medial Malleolus 48.2 cm 40 cm From Medial Malleolus 55.7 cm 50 cm From Medial Malleolus 69.9 cm 60 cm From Medial Malleolus 83.9 cm 70 cm From Medial Malleolus 91.3 cm Knee Joint 55.7 cm PT-OP-Q Treatments Start: 02/24/24 13:04 Freq: Status: Active Protocol: Document 04/30/24 13:00 [facility] (Rec: 04/30/24 16:42 [facility] [id number]) Lymphedema Treatment Manual Lymphatic Drainage Location chata LE's Duration 40 Comments sequential pneumatic pump opposite side of MLD Lymphedema Wrapping Body Location chata LE's Materials Size F Tubigrip toes to knees, covered with Juzo compression wraps. Size G Tricofix knees to groin with Juzo knee wraps over. Patient left thigh wraps at home; will don once returns home. Poor fit of foot wraps, fair calf and knees. PT-OP-R Modalities Start: 02/24/24 13:04 Freq: Status: Active Protocol: Document 04/23/24 12:56 [facility] (Rec: 04/23/24 13:42 [facility] [id number]) Compression Pump Treatment Treatment Location Left Leg Pressure Amount (mmHg) (mmHG) 45 Inflation Time (Seconds) 30 Deflation Time (Seconds) 10 Treatment Tolerance Good Treatment Comments during MLD right Right Leg Pressure Amount (mmHg) (mmHG) 45 Inflation Time (Seconds) 30 Deflation Time (Seconds) 10 Treatment Tolerance Good Treatment Comments during MLD left PT-OP-T Assessment and Plan Start: 02/24/24 13:04 Freq: Status: Active Protocol: Document 04/28/24 13:00 [facility] (Rec: 04/28/24 13:44 [facility] [id number]) Physical Therapy Assessment Goals 2 Impairment lymphedema life impact scale 76% Impairment c/o urinary frequency and urgency every 45 min during the day and 3 times at night Short Term Goal (STG) decrease score to no greater than 60% STG Duration 03/31/24 [employer] Goal (LTG) decrease score to no greater than 35% as measure of improved function and quality of life related to his lymphedema LTG Duration 05/26/24 1 Impairment lymphedema chata LE's Impairment pt lacks a HEP for pelvic floor strengthening Short Term Goal (STG) Patient will be instructed in all aspects of lymphedema self -care to include skin care, elevation, self-massage, self- bandaging/compression options, and lymphedema exercises. STG Duration 03/31/24 [employer] Goal (LTG) Decrease patient?s lymphedema to a stable level (no increase or decrease greater than 1 cm over the course of 1 week), patient to be independent with all aspects of self-care for lymphedema, and will obtain appropriate compression garment for lymphedema management in the home. Consider sequential pneumatic pump. LTG Duration 05/26/24 Assessment Summary Assessment Continues to have challenges with donning and fit of garments. Has another appointment this week for garment fitting, now with velcro wraps, hopeful for improved fit. Patient circumferential measurements increased today due to not wearing compression this am. Patient wound healed, has been discharged from wound care. Physical Therapy Plan Frequency and Duration Frequency of Treatment 20 visits Duration of treatment (weeks) 12 Plan of Care Start Date 02/24/24 Plan of Care End Date 04/25/24 Therapeutic Interventions Therapeutic Interventions Home Exercise Program, Lymphedema Management,Manual Therapy,Patient/Caregiver Education,Self-Care/Home Management,Soft Tissue Mobilization,Taping, Therapeutic Activities, Therapeutic Exercises Modalities Vasopneumatic Devices Next Visit Focus/Plan Next Note Type Treatment Note Next Visit Plan Evaluate fit of new garments. Assess need for further PT; discuss POC.
--- NOTE | 2024-05-11 16:45 | PT.OTN ---
Current Diagnoses Lymphedema, not elsewhere classified (05/11/24) Physical Therapy Treatment Note PT-OP-A Visit Information Start: 02/24/24 13:04 Freq: Status: Active Protocol: Document 05/11/24 12:59 SAK (Rec: 05/11/24 13:42 [facility] [id number]) Out-Patient Physical Therapy Visit Information Visit Information Visit Type Treatment Note Visit Start Time 13:00 Visit Stop Time 14:30 Visit Number 19 Evaluation Information Evaluation Date 01/31/24 Precautions Precautions DM, neuropathy, venous insufficiency, HTN, obesity, ARAMBULA. Patient is 5'8, 397 lbs . PT-OP-B Current Condition Start: 02/24/24 13:04 Freq: Status: Active Protocol: Document 04/28/24 13:00 SAK (Rec: 04/28/24 13:44 SAK [id number]) Current Condition History of Current Condition Onset Date 2019 Current Complaints swelling bilateral LE's History of Current Condition Gradual onset and worsening swelling chata LE's especially since 2019. Diagnosed venous insufficiency and lymphedema Has worn compression stockings 25-30 for yrs due to father having bad legs and wanting to try to prevent same issue. Hasn't been seen in PT for CDT. Due to persistent and worsening edema chata LE's was referred to wound care; has been seen in wound care since 01/09/24. Doppler ordered, was negative. Boils developed on both LE's, persistent unhealed small wound remaining on left lower leg. Wound care ordered vecro compression wraps for feet and calves , reports about 40 cm circumference decrease since starting wound care. Reports severe ankylosing spondylosis, back pain, nerve damage left LE. Unable to exercise due to joint pain in all LE joints and low back. Has Nu-Step at home, min resistance tolerated but can ride for up to 1 hour . Doesn't tolerate going for walks due to joint pain. Requires use of FWW for ambulation. States he was started on an antibiotic last week by wound care. States velcro compression wraps seem too big for feet now. Interested if other option for compression, feels like compression wraps help calves but push fluid to knees and it doesn't go any further. Is interested in considering pneumatic pump for home use and receptive to discussion options for compression garments. Prior Treatments and Tests doppler last month negative for clots PT-OP-C Subjective Start: 02/24/24 13:04 Freq: Status: Active Protocol: Document 05/11/24 12:59 SAK (Rec: 05/11/24 13:42 SAK [id number]) OP-PT Subjective Patient Comments Patient Comments Hasn't heard anything, still not successful with use of wraps for upper legs. Still trying to find something to work for thighs, velcro wraps don't work well. PT-OP-F Manual Assessment Start: 02/24/24 13:04 Freq: Status: Active Protocol: Document 02/24/24 14:28 SAK (Rec: 02/24/24 13:18 [facility] [id number]) Manual Assessments Soft Tissue Assessment Soft Tissue Mobility Assessment mild reddening chata lower legs knees to ankles, min warmth. No hemosiderin staining, mild fibrosis lower legs, no elephantiasis. PT-OP-G Mobility & Gait Start: 02/24/24 13:04 Freq: Status: Active Protocol: Document 02/24/24 14:28 SAK (Rec: 02/24/24 13:18 [facility] [id number]) OP Mobility Evaluation Bed Mobility Rolling indep,labored Supine to and from Sit indep, labored OP Gait Assessment Gait Gait Assistance Required: Independent Assistive Devices Assistive Device Front Wheeled Walker Gait Deviations General Gait Pattern Decreased Stride Length, Decreased Feet Clearance,Wide Based Gait Factors Limiting Gait Function Factors Limiting Gait Function Pain Comments Gait Comments weight of legs with lymphedema PT-OP-H Neuro Start: 02/24/24 13:04 Freq: Status: Active Protocol: Document 02/24/24 14:28 SAK (Rec: 02/24/24 13:18 [facility] [id number]) Sensation Evaluation Gross Sensation Gross Sensation Left LE Impaired,Right LE Impaired Location Details Right Leg Light Touch Impaired Left Leg Light Touch Impaired Vital Signs Blood Pressure Sitting Blood Pressure (90/60-120/80 mmHg) 132/80 H Blood Pressure Source Manual Cuff PT-OP-J Posture/Palpation/Skin Start: 02/24/24 13:04 Freq: Status: Active Protocol: Document 02/24/24 14:28 SAK (Rec: 02/24/24 13:18 [facility] [id number]) Palpation Assessment Location chata LE's Palpation Findings Edema,Soft Tissue Tightness Palpation Details knees, lower legs, feet Skin Assessment Edema Assessment chata LE's Edema Type Non-Pitting Edema Degree 4+ Edema Appearance Puffy,Taut Subjective Edema Description Tightness PT-OP-K Range of Motion Start: 02/24/24 13:04 Freq: Status: Active Protocol: Document 02/24/24 14:28 [facility] (Rec: 02/24/24 13:18 [facility] [id number]) Hip Goniometric Range of Motion Hip chata Comments mod dec all motions with c/o pain Knee Goniometric Range of Motion Knee chata Knee ROM WFL No Comments painful especially in weight- bearing Knee ROM Limitations Knee ROM Limitations Soft Tissue Tightness,Swelling Ankle and Foot Goniometric Range of Motion Ankle and Foot chata Ankle/Foot ROM WFL No Comments mod dec all motions Ankle and Foot ROM Limitations ROM Limitations Soft Tissue Tightness,Swelling PT-OP-N Lymphedema Start: 02/24/24 13:04 Freq: Status: Active Protocol: Document 05/11/24 12:59 [facility] (Rec: 05/11/24 13:42 [facility] [id number]) Lymphedema Measurements Lower Extremity Circumference Measurements Left Affected MT Heads 26 cm Mid-foot 26.5 cm Medial Malleolus 30.8 cm 10 cm From Medial Malleolus 32 cm 20 cm From Medial Malleolus 43.2 cm 30 cm From Medial Malleolus 48.1 cm 40 cm From Medial Malleolus 55.7 cm 50 cm From Medial Malleolus 66.2 cm 60 cm From Medial Malleolus 77.9 cm 70 cm From Medial Malleolus 79.9 cm Knee Joint 55.7 cm Right Affected MT Heads 25.7 cm Mid-foot 25.7 cm Medial Malleolus 30.2 cm 10 cm From Medial Malleolus 29.7 cm 20 cm From Medial Malleolus 33.3 cm 30 cm From Medial Malleolus 43 cm 40 cm From Medial Malleolus 47.4 cm 50 cm From Medial Malleolus 60 cm 60 cm From Medial Malleolus 70.7 cm 70 cm From Medial Malleolus 86.8 cm Knee Joint 55.7 cm PT-OP-Q Treatments Start: 02/24/24 13:04 Freq: Status: Active Protocol: Document 05/11/24 12:59 [facility] (Rec: 05/11/24 13:42 [facility] [id number]) Lymphedema Treatment Manual Lymphatic Drainage Location chata LE's Duration 40 Comments sequential pneumatic pump opposite side of MLD Lymphedema Wrapping Body Location chata LE's Materials Size F Tubigrip toes to knees, covered with new L and R compression wraps. Patient did not bring knee wraps or thigh wraps. Other Patient given information regarding [employer] compression capris and shorts and not able to keep compression wraps up on knees and thighs. Sequential Lymphedema Exercises Comments review Other Other review self care program; patient demosntrating good understanding. PT-OP-R Modalities Start: 02/24/24 13:04 Freq: Status: Active Protocol: Document 04/23/24 12:56 [facility] (Rec: 04/23/24 13:42 SAK [id number]) Compression Pump Treatment Treatment Location Left Leg Pressure Amount (mmHg) (mmHG) 45 Inflation Time (Seconds) 30 Deflation Time (Seconds) 10 Treatment Tolerance Good Treatment Comments during MLD right Right Leg Pressure Amount (mmHg) (mmHG) 45 Inflation Time (Seconds) 30 Deflation Time (Seconds) 10 Treatment Tolerance Good Treatment Comments during MLD left PT-OP-T Assessment and Plan Start: 02/24/24 13:04 Freq: Status: Active Protocol: Document 05/11/24 12:59 [facility] (Rec: 05/11/24 13:42 [facility] [id number]) Physical Therapy Assessment Goals 2 Impairment lymphedema life impact scale 76% Impairment c/o urinary frequency and urgency every 45 min during the day and 3 times at night Short Term Goal (STG) decrease score to no greater than 60% 05/11/24: goal met STG Duration GOAL MET Longterm Goal (LTG) decrease score to no greater than 35% as measure of improved function and quality of life related to his lymphedema 05/11/24: mostly met LTG Duration 05/26/24 1 Impairment lymphedema chata LE's Impairment pt lacks a HEP for pelvic floor strengthening Short Term Goal (STG) Patient will be instructed in all aspects of lymphedema self -care to include skin care, elevation, self-massage, self- bandaging/compression options, and lymphedema exercises. 05/11/24: GOAL MET STG Duration GOAL MET Longterm Goal (LTG) Decrease patient?s lymphedema to a stable level (no increase or decrease greater than 1 cm over the course of 1 week), patient to be independent with all aspects of self-care for lymphedema, and will obtain appropriate compression garment for lymphedema management in the home. Consider sequential pneumatic pump. 05/11/24: goal mostly met, has been instructed in pump set up and use and pump to be delivered soon. Independent with self care with the assist of his . REady for discharge. Will contact PT with any other issues. LTG Duration 05/26/24 Assessment Summary Assessment Patient now has velcro compression wraps that fit well lower legs and feet, notable decrease in circumference in lower legs and thigh left, though increase in right thigh. Patient not wearing compression wraps knees and hips due to difficulty with keeping them up; he is going to look fukrther at compression shorts or capris, PT recommended [employer] and patient was emailed link. Reviewed all aspects of self care for lymphedema including skin care, elevation, exercise , compression, and MLD. Still awaiting delievery of sequential pneumatic pump from [employer] but patient was educated in set up and use and demonstrated good understanding. When pump comes can be issued to patient without further instruction. Physical Therapy Plan Discharge Physical Therapy Discharge Comments Goals mostly met. Pump on the way (received email during patient session). Patient working to get better fitting compression shorts or capris but has been issued information and will consult further with [employer] as needed. At this time no further PT needs.
== END 2024-07-28 13:33 | disposition home or self-care (01) ==
LOC: PHYS 13:00
PROVIDERS: Family Provider Family Medicine; PCP Family Medicine; Referring Provider Surgery; Visit Provider Surgery
DX: I89.0 Lymphedema, not elsewhere classified (principal)
CPT/HCPCS: 29581; 97016; 97110; 97140; 97162; 97530; 97535

== ENCOUNTER → 2024-08-08 10:36 | Outpatient (CLI) | payer OTHER, SELFPAY ==
[2024-08-08 11:33] LABS: Creatinine Urine Random 95.02 mg/dL
[2024-08-08 11:36] LABS: Albumin 4.3 g/dL (3.5-5.0); BUN Creatinine Ratio 15.6 (6-22); Blood Urea Nitrogen 14 mg/dL (9-20); Calcium 9.1 mg/dL (8.4-10.2); Carbon Dioxide 26 mmol/L (22-32); Chloride 103 mmol/L (98-107); Cholesterol 109 mg/dL (140-199); Estimated Glomerular Filt Rate > 60 mL/min (>60); Glucose 109 mg/dL (70-99); HDL Cholesterol 31 mg/dL (40-60); HEMOLYSIS < 15 (0-50); LDL Cholesterol Calculated 33 mg/dL (<100); Phosphorous 4.3 mg/dL (2.3-3.7); Potassium 4.6 mmol/L (3.4-5.1); Sodium 140 mmol/L (137-145); Triglycerides 227 mg/dL (35-150)
[2024-08-08 11:38] LABS: Microalbumin Urine Random 1.7 mg/dL (0-1.6)
== END ==
PROVIDERS: PCP Family Medicine; Referring Provider Student in an Organized Health Care Education/Training Program; Visit Provider Student in an Organized Health Care Education/Training Program
DX: E11.69 Type 2 diabetes mellitus with other specified complication (principal)
CPT/HCPCS: 36415; 80061; 80069; 82043; 82570; 83036

== ENCOUNTER → 2024-11-04 11:49 | Outpatient (CLI) | payer OTHER, SELFPAY ==
[2024-11-04 13:06] LABS: Hemoglobin A1C% w Est Avg Glu 6.6 % (4.0-6.0)
[2024-11-04 13:22] LABS: Albumin 4.4 g/dL (3.5-5.0); Blood Urea Nitrogen 31 mg/dL (9-20); Calcium 9.2 mg/dL (8.4-10.2); Carbon Dioxide 24 mmol/L (22-32); Chloride 107 mmol/L (98-107); Cholesterol 108 mg/dL (140-199); Estimated Glomerular Filt Rate > 60 mL/min (>60); Glucose 109 mg/dL (70-99); HDL Cholesterol 32 mg/dL (40-60); HEMOLYSIS < 15 (0-50); Phosphorous 3.7 mg/dL (2.3-3.7); Potassium 4.8 mmol/L (3.4-5.1); Sodium 143 mmol/L (137-145); Triglycerides 199 mg/dL (35-150)
[2024-11-04 15:59] LABS: Microalbumi Creatinin Ratio Ur 12.0 ug/mg CR (<30)
== END ==
PROVIDERS: PCP Family Medicine; Referring Provider Student in an Organized Health Care Education/Training Program; Visit Provider Student in an Organized Health Care Education/Training Program
DX: E11.69 Type 2 diabetes mellitus with other specified complication (principal); E78.5 Hyperlipidemia, unspecified; I10 Essential (primary) hypertension
CPT/HCPCS: 36415; 80061; 80069; 82043; 82570; 83036

== ENCOUNTER → 2025-01-30 10:37 | Outpatient (CLI) | payer OTHER, SELFPAY ==
[2025-01-30 11:42] LABS: Albumin 4.3 g/dL (3.5-5.0); Blood Urea Nitrogen 20 mg/dL (9-20); Calcium 9.4 mg/dL (8.4-10.2); Carbon Dioxide 22 mmol/L (22-32); Chloride 105 mmol/L (98-107); Cholesterol 110 mg/dL (140-199); Estimated Glomerular Filt Rate > 60 mL/min (>60); Glucose 120 mg/dL (70-99); HDL Cholesterol 36 mg/dL (40-60); HEMOLYSIS < 15 (0-50); Hemoglobin A1C% w Est Avg Glu 6.1 % (4.0-6.0); Phosphorous 4.3 mg/dL (2.3-3.7); Potassium 4.4 mmol/L (3.4-5.1); Sodium 138 mmol/L (137-145); Triglycerides 180 mg/dL (35-150)
== END ==
PROVIDERS: PCP Family Medicine; Referring Provider Student in an Organized Health Care Education/Training Program; Visit Provider Student in an Organized Health Care Education/Training Program
DX: E11.69 Type 2 diabetes mellitus with other specified complication (principal); E78.5 Hyperlipidemia, unspecified; I10 Essential (primary) hypertension
CPT/HCPCS: 36415; 80061; 80069; 83036